=== PATIENT | male | born 1945 | race Caucasian/White ===

== ENCOUNTER → 2016-09-18 | Outpatient (CLI) | payer MEDICARE, BC ==
--- NOTE | 2016-09-18 07:56 | US ---
EXAMINATION TYPE: US carotid duplex BILAT DATE OF EXAM: 09/18/2016 COMPARISON: US CLINICAL HISTORY: R09.89 Carotid Bruit. Smoker, vision changes EXAM MEASUREMENTS: RIGHT: Peak Systolic Velocity (PSV) cm/sec ----- Right CCA: 64.3 ----- Right ICA: 53.8 ----- Right ECA: 85.5 ICA/CCA ratio: 0.8 RIGHT: End Diastole cm/sec ----- Right CCA: 11.0 ----- Right ICA: 24.1 ----- Right ECA: 12.8 LEFT: Peak Systolic Velocity (PSV) cm/sec ----- Left CCA: 72.1 ----- Left ICA: 48.9 ----- Left ECA: 71.2 ICA/CCA ratio: 0.7 LEFT: End Diastole cm/sec ----- Left CCA: 19.7 ----- Left ICA: 23.2 ----- Left ECA: 11.0 VERTEBRALS (direction of flow): Right Vertebral: Antegrade Left Vertebral: Antegrade No elevated velocities IMPRESSION: I DO NOT SEE EVIDENCE OF A HEMODYNAMICALLY SIGNIFICANT STENOSIS IN EITHER CAROTID SYSTEM. Criteria for Assigning % of Stenosis / Diameter reduction (Estimation based on the indirect measurements of the internal carotid artery velocities (ICA PSV). 1. Normal (no stenosis)=ICA PSV < 125 cm/s: ratio < 2.0: ICA EDV<40 cm/s. 2. Less than 50% stenosis=ICA PSV < 125 cm/s: ratio < 2.0: ICA EDV<40 cm/s. 3. 50 to 69% stenosis=ICA PSV of 125 to 230 cm/s: ration 2.0 ? 4.0: ICA EDV 40-100 cm/s. 4. Greater than 70% stenosis to near occlusion= ICA PSV > 230 cm/s: ratio > 4.0: ICA EDV > 100 cm/s. 5. Near occlusion= ICA PSV velocities may be low or undetectable: variable ratio and ICA EDV. 6. Total occlusion=unable to detect flow.
== END | disposition home or self-care (01) ==
LOC: RADUSWWP 07:24
PROVIDERS: ATTEND Family Medicine
DX: R09.89 Other specified symptoms and signs involving the circulatory and respiratory systems (principal)
CPT/HCPCS: 93880

== ENCOUNTER 2016-10-24 11:28 | Day surgery (SDC) | payer MEDICARE, BC ==
[2016-10-19 10:30] VITALS: BMI 27.0
[~2016-10-24 11:28] MED LIST: DEXAMETHASONE SOD PHOSPHATE 10 MG/ML 1 ML VIAL IV ONE; HEPARIN SODIUM,PORCINE 5,000 UNIT/ML 1 ML VIAL SQ ONE; HYDROmorphone 1 MG/ML 1 ML SYRINGE IVP PRN; LACTATED RINGERS 1,000 ML IV SCH; LIDOCAINE 1% 20 ML VIAL (10MG/ML) FOR IV START INTRADERMA PRN; MIDAZOLAM 2 MG/2 ML VIAL IV PRN; ONDANSETRON 4 MG/2 ML VIAL IVP ONE; Pre Op ABX Message 1 EACH MISC MISCELLANE ONE; SCOPOLAMINE 1.5MG/72HR PATCH TRANSDERM ONE
[2016-10-24 12:33] VITALS: TEMP 98.1
[2016-10-24 13:04] LABS: Glucose,Whole Blood 123 mg/dL (75-99)
[2016-10-24] MEDS ORDERED: LIDOCAINE 1% INJ 10MG/ML (20 ML MDV) ONE (13:05)
[2016-10-24] MEDS ORDERED: MIDAZOLAM 2 MG/2 ML VIAL ONE (13:05)
[2016-10-24] MEDS ORDERED: fentaNYL (PF) 50 MCG/ML 2 ML AMP ONE (13:05)
[2016-10-24] MEDS ORDERED: PROPOFOL 10 MG/ML 20 ML VIAL IV ONE (13:05)
[2016-10-24] MEDS ORDERED: SODIUM CHLORIDE 0.9% 50 ML with ceFAZolin 2,000 MG IV ONE ×2 (13:10)
[2016-10-24] MEDS ORDERED: BUPIVACAIN-EPI 0.25%-1:200,000 30 ML VIAL SQ ONE ×2 (13:18)
[2016-10-24] MEDS ORDERED: LIDOCAINE 2%-EPI 1:100,000 20 ML VIAL SQ ONE (14:19)
--- NOTE | 2016-10-24 14:50 | P.OP ---
Date of Procedure: 10/24/16 Preoperative Diagnosis: Multiple cutaneous sebaceous cysts Postoperative Diagnosis: Same Procedure(s) Performed: Excision of multiple sebaceous cyst 7 Implants: Anesthesia: VANDANA WELCH, local Surgeon: Tameka London Condition: stable Disposition: PACU Indications for Procedure: Operative Findings: Multiple cutaneous cysts Description of Procedure: Patient was brought to the operating room and placed in prone position. Chlorhexidine was used to prep shoulder and buttock area. Informed consent obtained and all sites marked preoperatively. Patient received preoperative antibiotics. Multiple skin and subcutaneous cyst in right lower neck ,left upper back, right lower back x2and 3 in left gluteal area. An elliptical skin incision was made to incorporate the draining punctum. Subcutaneous dissection was carried out to remove the entire cyst wall and containing granulation tissue. The cavity was irrigated with half-strength hydrogen peroxide and closed in single layer using interrupted sutures of 3-0 nylon. Hemostasis checked. Clean dressing applied. The sponge, instrument and needle count were correct 2 Please see the following location for post excisional measurements: 2x1x0.5 cm(neck) 4.5 x 3.5 x 1 cm ( gluteal area incorporating 3 areas ) , 2.4 x 0.6 x 2.3 cm(right lower back incorporating 2 areas ) and 1.3 x 0.9 x0.2 cm.( left upper back) Final Pathologic Diagnosis SKIN AND SUBCUTANEOUS TISSUE, BACK, EXCISION: EPIDERMAL INCLUSION CYST AND SUBCUTANEOUS INFLAMED GRANULATION TISSUE LINED CAVITIES WITH ADJACENT FIBROSIS, FAT NECROSIS AND FOREIGN BODY GIANT CELL REACTION SUGGESTIVE OF RUPTURED CYSTS.
[2016-10-24 15:20] VITALS: RESP 18
[2016-10-24 15:37] VITALS: PULSE 72
[2016-10-24 16:06] VITALS: BP 103/65
== END 2016-10-24 16:07 | disposition home or self-care (01) ==
LOC: OR 11:28
PROVIDERS: ATTEND Surgery
DX: L72.0 Epidermal cyst (principal); M79.89 Other specified soft tissue disorders; L92.8 Other granulomatous disorders of the skin and subcutaneous tissue; F17.200 Nicotine dependence, unspecified, uncomplicated; E11.9 Type 2 diabetes mellitus without complications; I10 Essential (primary) hypertension; E78.5 Hyperlipidemia, unspecified; Z79.84 Long term (current) use of oral hypoglycemic drugs; Z79.899 Other long term (current) drug therapy; Z88.8 Allergy status to other drugs, medicaments and biological substances
CPT/HCPCS: 88304; 11403 ×2; 11402; J2250; J1644; J1100; J2405; J2001; J3010; J0690; J2704

== ENCOUNTER 2020-12-17 22:48 | Inpatient (IN) | payer MEDICARE, BC ==
--- NOTE | 2020-12-17 23:14 | ED ---
Chest Pain HPI - General Chief Complaint: Chest Pain Stated Complaint: Chest Pain Time Seen by Provider: 12/17/20 23:02 Source: patient Mode of arrival: ambulatory - History of Present Illness Complaint: chest pain Onset/Timin -: hour(s) Onset: after eating Pain Location: substernal, epigastric Pain Radiation: none Severity: moderate Quality: other ("Like heartburn") Consistency: constant, now resolved Improves With: other Worsens With: nothing Treatments Prior to Arrival: other ([place]) - Related Data Home Medications Medication Instructions Recorded Confirmed Atorvastatin Calcium [Lipitor] 20 mg PO HS 10/19/16 10/24/16 Empagliflozin [Jardiance] 25 mg PO DAILY 10/19/16 10/24/16 Latanoprost Ophth [Xalatan 0.005%] 1 drops BOTH EYES HS 10/19/16 10/24/16 Saxagliptin HCl [Onglyza] 5 mg PO DAILY 10/19/16 10/24/16 hydroCHLOROthiazide 25 mg PO DAILY 10/19/16 10/24/16 lisinopriL [Zestril] 20 mg PO DAILY 10/19/16 10/24/16 metFORMIN HCL [Glucophage] 1,000 mg PO BID 10/19/16 10/24/16 Previous Rx's Medication Instructions Recorded Docusate [Colace] 100 mg PO BID #30 capsule 10/24/16 Hydrocodone/Acetaminophen [[place] 1 each PO Q6HR PRN #20 tab 10/24/16 5-325] Sulfamethox-Tmp 800-160Mg [Bactrim 1 tab PO Q12HR #20 tab 10/24/16 DS 800-160 mg] Allergies Allergy/AdvReac Type Severity Reaction Status Date / Time oxycodone [From OxyContin] AdvReac Nausea & Verified 12/17/20 22:54 Vomiting Review of Systems ROS Statement: Those systems with pertinent positive or pertinent negative responses have been documented in the HPI. ROS Other: All systems not noted in ROS Statement are negative. Constitutional: Denies: fever, chills Respiratory: Denies: cough, dyspnea Cardiovascular: Reports: as per HPI, chest pain. Denies: palpitations, orthopnea, edema, syncope Gastrointestinal: Denies: abdominal pain, nausea, vomiting, diarrhea, constipation Genitourinary: Denies: dysuria, hematuria Musculoskeletal: Denies: back pain Skin: Denies: rash Neurological: Denies: headache, weakness EKG Findings - EKG Results: EKG: interpreted by JANE, sinus rhythm (Rate 79 bpm) - Blocks, [place], Hypertrophy, ST Abn: AV and intraventricular conduction: left bundle branch block (fixed/intermittent, complete/incomplete) QRS axis and voltage: left axis deviation (-30 to -90) Repolarization changes or abnormalities: nonspecific abnormality, ST segment, and/or T wave Past Medical History Past Medical History: Cancer, Diabetes Mellitus Additional Past Medical History / Comment(s): 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 History of Any Multi-Drug Resistant Organisms: None Reported Past Surgical History: Tonsillectomy Additional Past Surgical History / Comment(s): Multiple cyst removed in the past. States large cyst removed from armpit. Colonoscopy in the past. Past Anesthesia/Blood Transfusion Reactions: No Reported Reaction Past Psychological History: No Psychological Hx Reported Smoking Status: Current every day smoker Past Alcohol Use History: None Reported Past Drug Use History: None Reported - Past Family History Father Family Medical History: Cancer Additional Family Medical History / Comment(s): Stomach Mother Family Medical History: No Reported History General Exam General appearance: alert, in no apparent distress Head exam: Present: atraumatic, normocephalic Eye exam: Present: normal appearance. Absent: scleral icterus, conjunctival injection Neck exam: Present: normal inspection Respiratory exam: Present: normal lung sounds bilaterally. Absent: respiratory distress, wheezes, rales, rhonchi, stridor, chest wall tenderness Cardiovascular Exam: Present: regular rate, normal rhythm, normal heart sounds. Absent: systolic murmur, diastolic murmur, rubs, gallop GI/Abdominal exam: Present: soft. Absent: distended, tenderness, guarding, rebound, rigid, mass Extremities exam: Present: normal inspection, normal capillary refill. Absent: pedal edema, calf tenderness Back exam: Present: normal inspection. Absent: CVA tenderness (R), CVA tenderness (L) Neurological exam: Present: alert Skin exam: Present: warm, dry, intact, normal color. Absent: rash Course Vital Signs 12/17/20 22:51 Temperature 98 F Pulse Rate 87 Respiratory 19 Rate Blood Pressure 135/81 O2 Sat by Pulse 95 Oximetry Disposition Referrals: Ebenezer Guerrero MD [Primary Care Provider] - 1-2 days
[2020-12-17 23:35] LABS: Basophils # (A) 0.1 k/uL (0-0.2); Basophils % (A) 1 %; Eosinophils # (A) 0.4 k/uL (0-0.7); Eosinophils % (A) 3 %; HCT 46.4 % (39.0-53.0); HGB 15.6 gm/dL (13.0-17.5); Lymphocytes % (A) 16 %; MCH 33.1 pg (25.0-35.0); MCHC 33.6 g/dL (31.0-37.0); MCV 98.3 fL (80.0-100.0); Monocytes # (A) 0.8 k/uL (0-1.0); Monocytes % (A) 6 %; Neutrophils # (A) 9.3 k/uL (1.3-7.7); Neutrophils % (A) 72 %; Platelet Count 167 k/uL (150-450); RBC 4.72 m/uL (4.30-5.90); RDW 13.6 % (11.5-15.5); WBC 12.8 k/uL (3.8-10.6)
[2020-12-17 23:43] LABS: Albumin 4.2 g/dL (3.5-5.0); Calcium 9.8 mg/dL (8.4-10.2); Magnesium 1.8 mg/dL (1.6-2.3); Potassium 3.9 mmol/L (3.5-5.1); Total Bilirubin 0.6 mg/dL (0.2-1.3); Total Protein 7.3 g/dL (6.3-8.2)
[2020-12-17 23:45] LABS: INR 0.9 (<1.2); Partial Thromboplastin Time 23.2 sec (22.0-30.0); Prothrombin Time 10.1 sec (9.0-12.0)
--- NOTE | 2020-12-17 23:56 | XR ---
EXAMINATION TYPE: XR chest 2V DATE OF EXAM: 12/17/2020 COMPARISON: NONE HISTORY: Chest pain TECHNIQUE: 3 views FINDINGS: There is some mild atelectasis at the lung bases. Heart size is normal. There is no heart f ailure. Thoracic aorta is atheromatous. There are chest leads. There is no pleural effusion. Bony tho rax is intact. IMPRESSION: There is some mild atelectasis at the lung bases.
[2020-12-18] MEDS ORDERED: INSULIN REGULAR 100 UNIT/ML VIAL (IV) IV STA (00:10)
[2020-12-18] MEDS ORDERED: HEPARIN SODIUM 1,000 UN/ML (10ML VL) IV ONE (00:11)
[2020-12-18] MEDS ORDERED: HEPARIN SODIUM 1,000 UN/ML (10ML VL) IV PRN (00:11)
[2020-12-18] MEDS ORDERED: HEPARIN SOD,PORK IN 0.45% NACL 25,000 UNIT in 0.45% NACL 1 250ML.BAG IV SCH (00:15)
[2020-12-18] MEDS ORDERED: ACETAMINOPHEN TAB 325 MG TAB PO PRN (00:20)
[2020-12-18] MEDS ORDERED: MORPHINE SULFATE 4 MG/ML SYRINGE IV PRN (00:20)
[2020-12-18] MEDS ORDERED: NITROGLYCERIN SL TABS 0.4 MG TAB SUBLINGUAL PRN ×2 (00:20→12:19)
[2020-12-18] MEDS ORDERED: HYDROcodone/APAP 5-325MG 1 EACH TAB PO PRN (00:23)
[2020-12-18 02:28] LABS: Glucose,Whole Blood 193 mg/dL (75-99)
--- NOTE | 2020-12-18 04:14 | P.HPIM ---
History of Present Illness H&P Date: 12/18/20 Chief Complaint: Epigastric pain 75-year-old male with diabetes mellitus on oral hypoglycemic agents A1c 6.9%, hypertension, hyperlipidemia Patient comes in due to 3 hour long epigastric/substernal pain rated as 5-7 out of 10 in severity not associated with any dizziness lightheadedness diaphoresis or palpitations no heavy breathing. However pain persisted despite patient thinking that some indigestion for which he took [place] help him feel better initially but then pain persisted for which she was worried that he's having some food poisoning so he decided to come to the hospital. Earlier that day he had early dinner around 3 PM at a restaurant where he had fish his ate at the same restaurant of her meal and she is feeling fine. He never had any cardiac workup in the past he never had any complaints suggestive of anginal chest pain or exertional dyspnea patient is occasionally active where he does some yard work with no limitations with any chest pain. He otherwise denies any fevers chills coughing shortness of breath denies any nausea vomiting or diarrhea Along with the above symptoms he was also complaining of recurrent belching but again denies any symptoms suggestive of GERD In the ED workup showed initially normal troponins slightly elevated white count blood glucose 262. EKG no acute ST changes suggestive of incomplete left bundle branch block Patient admits to history of smoking, he has well-controlled diabetes mellitus hypertension hyperlipidemia along with his advanced age and concerns were for underlying cardiac cause for his presentation patient was kept in the hospital for chest pain rule out Review of Systems Pertinent positives as noted in HPI. 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 History of Any Multi-Drug Resistant Organisms: None Reported Past Surgical History: Cholecystectomy, Tonsillectomy Additional Past Surgical History / Comment(s): 35 cysts removed in the past. States large cyst removed from armpit. Colonoscopy in the past. Past Anesthesia/Blood Transfusion Reactions: No Reported Reaction Past Psychological History: No Psychological Hx Reported Smoking Status: Current every day smoker Past Alcohol Use History: None Reported Additional Past Alcohol Use History / Comment(s): Smokes 1 PPD since . Past Drug Use History: None Reported - Past Family History Father Family Medical History: Cancer Additional Family Medical History / Comment(s): Stomach Mother Family Medical History: No Reported History Medications and Allergies Home Medications Medication Instructions Recorded Confirmed Type Atorvastatin Calcium [Lipitor] 20 mg PO HS 10/19/16 12/18/20 History Empagliflozin [Jardiance] 25 mg PO DAILY 10/19/16 12/18/20 History Latanoprost Ophth [Xalatan 0.005%] 1 drops BOTH EYES HS 10/19/16 12/18/20 History hydroCHLOROthiazide 25 mg PO DAILY 10/19/16 12/18/20 History metFORMIN HCL [Glucophage] 1,000 mg PO BID 10/19/16 12/18/20 History Alogliptin Benzoate [Alogliptin] 25 mg PO DAILY 12/18/20 12/18/20 History Brimonidine/Dorzolamide/Pf 1 drop BOTH EYES BID 12/18/20 12/18/20 History [Brimonidine 0.15%-Dorzolam 2%] Losartan Potassium 100 mg PO DAILY 12/18/20 12/18/20 History Allergies Allergy/AdvReac Type Severity Reaction Status Date / Time oxycodone [From OxyContin] AdvReac Nausea & Verified 12/17/20 22:54 Vomiting Physical Exam Vitals: Vital Signs Temp Pulse Pulse Resp BP BP Pulse Ox 12/18/20 01:16 97.6 F 78 16 148/71 91 L 12/18/20 00:25 80 18 131/81 94 L 12/17/20 22:51 98 F 87 19 135/81 95 Intake and Output 12/17/20 12/17/20 12/18/20 14:59 22:59 06:59 Other: Voiding Method Toilet Weight 86.183 kg 86.183 kg Constitutional: No acute distress, conversant, pleasant Eyes: Anicteric sclerae, moist conjunctiva, Pupils equal round reactive to light ENMT: NC/AT Oropharynx clear, no erythema, or exudates Neck: Supple, FROM, no masses, or JVD No carotid bruits No thyromegaly Lungs: Clear to auscultation Clear to percussion Normal respiratory effort, no accessory muscle use Cardiovascular: Heart regular in rate and rhythm, No murmurs, gallops, or rubs No peripheral edema Abdominal: Soft Nontender, no guarding, rebound or rigidity Abdomen moving with respiration Normoactive bowel sounds No hepatomegaly, No splenomegaly No palpable mass No abdominal wall hernia noted Skin: Normal temperature, tone, texture, turgor No induration No subcutaneous nodules No rash, lesions No ulcers Extremities: No digital cyanosis No clubbing Pedal pulses intact and symmetrical Radial pulses intact and symmetrical No calf tenderness Psychiatric: Alert and oriented to person, place and time Appropriate affect fair judgement Neuro Muscles Strength 5/5 in all 4 extremities Sensation to light touch grossly present throughout Cranial nerves II-XII grossly intact No focal sensory deficits Lymphatics: no palpable cervical or supraclavicular , or inguinal lymph nodes Results CBC & Chem 7: 12/17/20 23:24 12/17/20 23:24 Labs: Abnormal Lab Results - Last 24 Hours (Table) 12/17/20 12/17/20 12/18/20 Range/Units 23:24 23:24 02:23 WBC 12.8 H (3.8-10.6) k/uL Neutrophils # 9.3 H (1.3-7.7) k/uL Sodium 136 L (137-145) mmol/L BUN 29 H (9-20) mg/dL Glucose 262 H (74-99) mg/dL POC Glucose (mg/dL) 193 H (75-99) mg/dL Troponin I (0.000-0.034) ng/mL 12/18/20 Range/Units 03:05 WBC (3.8-10.6) k/uL Neutrophils # (1.3-7.7) k/uL Sodium (137-145) mmol/L BUN (9-20) mg/dL Glucose (74-99) mg/dL POC Glucose (mg/dL) (75-99) mg/dL Troponin I 0.319 H* (0.000-0.034) ng/mL Thrombosis Risk Factor Assmnt - Choose All That Apply Any of the Below Risk Factors Present?: Yes Each Factor Represents 1 point: Obesity (BMI >25) Other Risk Factors: Yes Each Risk Factor Represents 2 Points: Malignancy Each Risk Factor Represents 3 Points: Age 75 years or older Other congenital or acquired thrombophilia - If yes, enter type in comment: No Thrombosis Risk Factor Assessment Total Risk Factor Score: 6 Thrombosis Risk Factor Assessment Level: High Risk Assessment and Plan Assessment: Atypical chest pain rule out acute coronary syndrome Trend troponins Cardiac monitoring Cardiology consult Aspirin, statin Patient started on PPI Nitro when necessary for chest pain Monitor vital signs Heparin drip for acute coronary syndrome protocol Chronic conditions Diabetes mellitus on oral hypoglycemic agents will controlled with A1c month ago 6.9% Hold oral hypoglycemic agents Start patient on insulin sliding scale Hypertension well-controlled resume losartan home medication Hyperlipidemia continue with statin Follow-up labs Follow-up cardiology recommendations Patient is full code DVT prophylaxis on heparin drip for ACS Anticipated discharge to home Anticipated length of stay less than 2 midnights
[2020-12-18] MEDS ORDERED: MAG HYDROX/AL HYDROX/SIMETH 30 ML, HYOSCYAMINE ELIXIR 10 ML, LIDOCAINE VISCOUS 2% 10 ML PO ONE ×3 (05:00)
[2020-12-18] MEDS: INSULIN ASPART (NovoLOG) 100 UNIT/ML VIAL SQ SCH ×4 (07:24→20:49)
[2020-12-18] MEDS: DOCUSATE 100 MG CAP PO SCH ×2 (07:24→20:06)
[2020-12-18 07:47] LABS: Glucose,Whole Blood 171 mg/dL (75-99)
[2020-12-18] MEDS: LOSARTAN 50 MG TAB PO SCH (08:19)
[2020-12-18] MEDS ORDERED: NON FORMULARY DRUG (Empagliflozin [Jardiance] 25 MG Tablet) PO SCH (09:00)
[2020-12-18] MEDS ORDERED: LINAGLIPTIN 5 MG TABLET PO SCH (09:00)
[2020-12-18] MEDS ORDERED: metFORMIN 500 MG TAB PO SCH (09:00)
[2020-12-18] MEDS ORDERED: hydroCHLOROthiazide 25 MG TAB PO SCH (09:00)
[2020-12-18] MEDS ORDERED: lisinopriL 20 MG TAB PO SCH (09:00)
--- NOTE | 2020-12-18 09:09 | P.CRDCN ---
History of Present Illness History of present illness: HISTORY OF PRESENTING ILLNESS This is a pleasant 75-year-old with past medical history significant for Hypertension, hyperlipidemia, diabetes mellitus type 2, tobacco abuse who presents with indigestion, epigastric pain. Patient states normally does not get indigestion however yesterday he started feeling some before going to bed. He admitted to some nausea as well as some belching. He never had this before and therefore presented to emergency department. He denies any associated sh ortness breath, diaphoresis, chest pain. He took some antacids without any improvement. He does smoke approximately a pack a day, no alcohol or illicit drugs. No family history of coronary artery disease. I was notified overnight with second troponin increasing from 0.03 up to 0.3 however he was given GI cocktail with apparent improvement in symptoms. Patient currently denies any epigastric pain. Third troponin increased to 19 this morning. EKG shows normal sinus rhythm, left axis deviation, incomplete left bundle with Q waves V1, minimal ST depression in lead 2 and T wave flattening in 3. REVIEW OF SYSTEMS At the time of my exam: CONSTITUTIONAL: Denies fever or chills. CARDIOVASCULAR: Denies chest pain, shortness of breath, orthopnea, PND or palpitations. +epigastric pain with belching RESPIRATORY: Denies cough. GASTROINTESTINAL: Denies abdominal pain, diarrhea, constipation, nausea or vomiting. MUSCULOSKELETAL: Denies myalgias. NEUROLOGIC: Denies numbness, tingling or weakness. ENDOCRINE: Denies fatigue, weight change, polydipsia or polyurina. GENITOURINARY: Denies burning, hematuria or urgency with micturation. HEMATOLOGIC: Denies history of anemia or bleeding. PHYSICAL EXAMINATION Vital signs reviewed. CONSTITUTIONAL: No apparent distress. HEENT: Head is normocephalic. Pupils are equal, round. Sclerae anicteric. Mucous membranes of the mouth are moist. No JVD. No carotid bruit. CHEST EXAMINATION: Lungs are clear to auscultation. No chest wall tenderness is noted on palpation or with deep breathing. HEART EXAMINATION: Regular rate and rhythm. S1, S2 heard. No murmurs, gallops or rub. ABDOMEN: Soft, nontender. Positive bowel sounds. EXTREMITIES: 2+ peripheral pulses, no lower extremity edema and no calf tenderness. NEUROLOGIC EXAMINATION: Patient is awake, alert and oriented x3. ASSESSMENT 1. Non-STEMI 2. Diabetes mellitus type 2 3. Hypertension 4. Hyperlipidemia 5. Tobacco abuse PLAN Patient with atypical symptoms initially with epigastric pain and belching which did improve with GI cocktail. Currently is chest pain-free however third-degree troponin significantly elevated. Check 2-D echo. Discussed her catheterization patient is agreeable. Aspirin, heparin drip, beta nila, increase Lipitor to 40 mg daily. Further recommendations follow. Tobacco cessation. 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 History of Any Multi-Drug Resistant Organisms: None Reported Past Surgical History: Cholecystectomy, Tonsillectomy Additional Past Surgical History / Comment(s): 35 cysts removed in the past. States large cyst removed from armpit. Colonoscopy in the past. Past Anesthesia/Blood Transfusion Reactions: No Reported Reaction Past Psychological History: No Psychological Hx Reported Smoking Status: Current every day smoker Past Alcohol Use History: None Reported Additional Past Alcohol Use History / Comment(s): Smokes 1 PPD since . Past Drug Use History: None Reported - Past Family History Father Family Medical History: Cancer Additional Family Medical History / Comment(s): Stomach Mother Family Medical History: No Reported History Medications and Allergies Home Medications Medication Instructions Recorded Confirmed Type Atorvastatin Calcium [Lipitor] 20 mg PO HS 10/19/16 12/18/20 History Empagliflozin [Jardiance] 25 mg PO DAILY 10/19/16 12/18/20 History Latanoprost Ophth [Xalatan 0.005%] 1 drops BOTH EYES HS 10/19/16 12/18/20 His tory hydroCHLOROthiazide 25 mg PO DAILY 10/19/16 12/18/20 History metFORMIN HCL [Glucophage] 1,000 mg PO BID 10/19/16 12/18/20 History Alogliptin Benzoate [Alogliptin] 25 mg PO DAILY 12/18/20 12/18/20 History Brimonidine/Dorzolamide/Pf 1 drop BOTH EYES BID 12/18/20 12/18/20 History [Brimonidine 0.15%-Dorzolam 2%] Losartan Potassium 100 mg PO DAILY 12/18/20 12/18/20 History Allergies Allergy/AdvReac Type Severity Reaction Status Date / Time oxycodone [From OxyContin] AdvReac Nausea & Verified 12/17/20 22:54 Vomiting Physical Exam Vitals: Vital Signs Temp Pulse Pulse Resp BP BP Pulse Ox 12/18/20 07:10 98.5 F 81 16 109/67 93 L 12/18/20 05:06 87 18 102/53 93 L 12/18/20 01:16 97.6 F 78 16 148/71 91 L 12/18/20 00:25 80 18 131/81 94 L 12/17/20 22:51 98 F 87 19 135/81 95 Intake and Output 12/17/20 12/18/20 12/18/20 22:59 06:59 14:59 Intake Total 71.645 Balance 71.645 Intake: Intake, IV Titration 71.645 Amount Heparin Sod,Pork in 0.45% 71.645 NaCl 25,000 unit In 0.45 % NaCl 1 250ml.bag @ 11.6 UNITS/KG/HR 9.997 mls/hr IV .Q24H [facility] Rx#: [id number] Other: Voiding Method Toilet Toilet # Voids 2 Weight 86.183 kg 86.183 kg Results 12/17/20 23:24 12/17/20 23:24 Cardiac Enzymes 12/17/20 12/17/20 12/18/20 Range/Units 23:24 23:24 03:05 AST 28 (17-59) U/L Troponin I 0.029 0.319 H* (0.000-0.034) ng/mL 12/18/20 Range/Units 07:03 AST (17-59) U/L Troponin I 19.000 H* (0.000-0.034) ng/mL Coagulation 12/17/20 12/18/20 Range/Units 23:24 07:03 PT 10.1 (9.0-12.0) sec APTT 23.2 30.5 H (22.0-30.0) sec CBC 12/17/20 Range/Units 23:24 WBC 12.8 H (3.8-10.6) k/uL RBC 4.72 (4.30-5.90) m/uL Hgb 15.6 (13.0-17.5) gm/dL Hct 46.4 (39.0-53.0) % Plt Count 167 (150-450) k/uL Comprehensive Metabolic Panel 12/17/20 Range/Units 23:24 Sodium 136 L (137-145) mmol/L Potassium 3.9 (3.5-5.1) mmol/L Chloride 104 (98-107) mmol/L Carbon Dioxide 22 (22-30) mmol/L BUN 29 H (9-20) mg/dL Creatinine 1.03 (0.66-1.25) mg/dL Glucose 262 H (74-99) mg/dL Calcium 9.8 (8.4-10.2) mg/dL AST 28 (17-59) U/L ALT 27 (4-49) U/L Alkaline Phosphatase 63 (38-126) U/L Total Protein 7.3 (6.3-8.2) g/dL Albumin 4.2 (3.5-5.0) g/dL Current Medications Generic Name Dose Route Start Last Admin Trade Name Freq PRN Reason Stop Dose Admin Acetaminophen 650 mg 12/18/20 00:20 Acetaminophen Tab 325 Mg Tab PO Q4HR PRN Pain Hydrocodone Bitart/Acetaminophen 1 each 12/18/20 00:23 Hydrocodone/Apap 5-325mg 1 Each Tab PO Q6HR PRN Pain Aspirin 325 mg 12/19/20 09:00 Aspirin 325 Mg Tab PO DAILY OUMAR Atorvastatin Calcium 20 mg 12/18/20 21:00 Atorvastatin 20 Mg Tab PO HS OUMAR Brimonidine Tartrate 1 drops 12/18/20 09:00 Brimonidine Tartrate 0.2% Drops 5 Ml Btl BOTH EYES BID OUMAR Docusate Sodium 100 mg 12/18/20 09:00 12/18/20 07:24 Docusate 100 Mg Cap PO Not Given BID OUMAR Dorzolamide HCl 1 drops 12/18/20 09:00 Dorzolamide Hcl 2% Drops 10 Ml Btl BOTH EYES BID OUMAR Heparin Sodium (Porcine) 0 unit 12/18/20 00:11 Heparin Sodium 1,000 Un/Ml (10ml Vl) IV PER PROTOCOL PRN Low PTT Protocol Heparin Sodium/Sodium Chloride 250 mls @ 9.997 mls/hr 12/18/20 00:15 12/18/20 07:54 25,000 unit/ Sodium Chloride IV 14.6 units/kg/hr .Q24H [facility] 12.583 mls/hr Titration Protocol 11.6 UNITS/KG/HR Insulin Aspart 0 unit 12/18/20 07:30 12/18/20 07:24 Insulin Aspart (Novolog) 100 Unit/Ml Vial SQ Not Given ACHS [facility] Protocol Latanoprost 1 drops 12/18/20 21:00 Latanoprost 0.005% Ophth Drops 2.5 Ml Btl BOTH EYES HS [facility] Losartan Potassium 100 mg 12/18/20 09:00 12/18/20 08:19 Losartan 50 Mg Tab PO Not Given DAILY [facility] Metoprolol Tartrate 12.5 mg 12/18/20 09:00 Metoprolol Tartrate 12.5 Mg Tab PO BID [facility] Morphine Sulfate 4 mg 12/18/20 00:20 Morphine Sulfate 4 Mg/Ml Syringe IV Q5M PRN Chest Pain Nitroglycerin 0.4 mg 12/18/20 00:20 Nitroglycerin Sl Tabs 0.4 Mg Tab SUBLINGUAL Q5M PRN Chest Pain Intake and Output 12/17/20 12/18/20 12/18/20 22:59 06:59 14:59 Intake Total 71.645 Balance 71.645 Intake: Intake, IV Titration 71.645 Amount Heparin Sod,Pork in 0.45% 71.645 NaCl 25,000 unit In 0.45 % NaCl 1 250ml.bag @ 11.6 UNITS/KG/HR 9.997 mls/hr IV .Q24H [facility] Rx#: [id number] Other: Voiding Method Toilet Toilet # Voids 2 Weight 86.183 kg 86.183 kg 12/17/20 23:24 12/17/20 23:24
[2020-12-18] MEDS: BRIMONIDINE TARTRATE 0.2% DROPS 5 ML BTL BOTH EYES SCH ×2 (09:26→20:07)
[2020-12-18] MEDS: METOPROLOL TARTRATE 12.5 MG TAB PO SCH ×2 (09:26→20:06)
[2020-12-18] MEDS: DORZOLAMIDE HCL 2% DROPS 10 ML BTL BOTH EYES SCH ×2 (09:26→20:07)
--- NOTE | 2020-12-18 09:35 | P.PN ---
<Mookie Ferreira - Last Filed: 12/18/20 09:24> Subjective Progress Note Date: 12/18/20 Hospital course: Patient is a 5-year-old male with past medical history of type II act-suykxuv-e ependent diabetes mellitus,Nicotine dependence smoking one pack of cigarettes daily, hypertension, and hyperlipidemia. He presented to the hospital on 12/17/20 with a chief complaint of chest pain. An EKG was completed showing normal sinus rhythm at 79 bpm with an incomplete left bundle branch block, no previous EKGs available for comparison. Chest x-ray revealed mild atelectasis at bilateral lung bases. CBC revealing mild leukocytosis with a WBC count of 12.8 otherwise unremarkable. Coags were normal. BMP revealing mild prerenal azotemia with BUN of 29 and hyperglycemia with glucose of 262. Initial troponin 0.029. Patient was given aspirin, atorvastatin, and started on heparin infusion per ACS protocol. The patient was then admitted under our services with consultation to cardiology. Throughout the night while trending troponins patient's troponin was noted to significantly elevate from 0.029 to 0.319, and 19.00. Nurse Assistant at bedside with plans to take patient to laboratory coordinator later this morning. Physical exam: Patient seen and fully evaluated at bedside this morning. Patient currently resting comfortably on heparin infusion and denying having any chest pain, palpitations, shortness of breath, Nausea, diaphoresis, back pain, or neck pain. Patient Was noted to have increasing troponins throughout the night elevating from 0.029 to 0.319, and 19.00. Cardiology was notified with plans to take patient for cardiac cath this morning. Admission orders placed for inpatient from observation status. Vital signs reviewed and stable. General: Nontoxic, no distress and appears stated age. Derm: Skin warm and dry, normal coloration for ethnicity. Head: Atraumatic, normocephalic and symmetric. Eyes: EOMs intact, no lid lag, and anicteric sclera Mouth: no lip lesions, mucus membranes moist Cardiovascular: regular rate and rhythm with normal S1S2, no murmur, positive posterior tibial pulses bilaterally, and cap refill < 2 seconds. Lungs: Respirations even, regular, and unlabored on room air. Lungs CTA bilaterally, no rhonchi, no rales, no wheezing, and no accessory muscle usage. Abdominal: soft, nontender to palpation, no guarding, no appreciable organomegaly Ext: ROM intact. No gross muscle atrophy, no edema, no contractures Neuro: Speech clear, face symmetrical and CN II-XII grossly intact with no noted focal neuro deficits Psych: Alert and oriented to person, place, time, and situation. Appropriate and pleasant affect. Assessment and Plan of Care: NSTEMI -Patient's troponin was noted to significantly elevate from 0.029 to 0.319, and 19.00. -EKG was completed showing normal sinus rhythm at 79 bpm with an incomplete left bundle branch block, no previous EKGs available for comparison. -Cardiology following, plans to take patient for cardiac cath later this mo rning. -Continue heparin per ACS protocol. -Continue daily aspirin, atorvastatin, metoprolol. -Continuous telemetry monitoring -Nitro when necessary for chest pain/discomfort. Type II [id number] diabetes mellitus -For Glucophage and place patient on glycemic protocol with NovoLog sliding scale. Nicotine dependence -Continue to educate and encourage patient on the importance and benefits of smoking cessation and risks associated with continued use up to and including . -Nicotine patch Hypertension -Monitor vitals and continue daily medication regimen. Hyperlipidemia -Continue daily medication regimen. CODE STATUS: Full code DVT prophylaxis: Heparin Discussed with: Patient and RN Anticipated discharge date: Clinical course to determine Anticipated discharge place: Home A total of 45 minutes was spent on the care of this complex patient more than 50% of the time was spent in counseling and care coordination. Objective - Vital Signs Vital signs: Vital Signs Temp 98.5 F 12/18/20 07:10 Pulse 81 12/18/20 07:10 Resp 16 12/18/20 07:10 BP 109/67 12/18/20 07:10 Pulse Ox 93 L 12/18/20 07:10 Intake & Output 12/17/20 12/18/20 12/18/20 18:59 06:59 18:59 Intake Total 71.645 Balance 71.645 Weight 86.183 kg Intake: Intake, IV Titration 71.645 Amount Heparin Sod,Pork in 0.45% 71.645 NaCl 25,000 unit In 0.45 % NaCl 1 250ml.bag @ 11.6 UNITS/KG/HR 9.997 mls/hr IV .Q24H [facility] Rx#: [id number] Other: Voiding Method Toilet Toilet # Voids 2 - Labs CBC & Chem 7: 12/17/20 23:24 12/17/20 23:24 Labs: Abnormal Lab Results - Last 24 Hours (Table) 12/17/20 12/17/20 12/18/20 Range/Units 23:24 23:24 02:23 WBC 12.8 H (3.8-10.6) k/uL Neutrophils # 9.3 H (1.3-7.7) k/uL APTT (22.0-30.0) sec Sodium 136 L (137-145) mmol/L BUN 29 H (9-20) mg/dL Glucose 262 H (74-99) mg/dL POC Glucose (mg/dL) 193 H (75-99) mg/dL Troponin I (0.000-0.034) ng/mL 12/18/20 12/18/20 12/18/20 Range/Units 03:05 07:03 07:03 WBC (3.8-10.6) k/uL Neutrophils # (1.3-7.7) k/uL APTT 30.5 H (22.0-30.0) sec Sodium (137-145) mmol/L BUN (9-20) mg/dL Glucose (74-99) mg/dL POC Glucose (mg/dL) (75-99) mg/dL Troponin I 0.319 H* 19.000 H* (0.000-0.034) ng/mL 12/18/20 Range/Units 07:20 WBC (3.8-10.6) k/uL Neutrophils # (1.3-7.7) k/uL APTT (22.0-30.0) sec Sodium (137-145) mmol/L BUN (9-20) mg/dL Glucose (74-99) mg/dL POC Glucose (mg/dL) 171 H (75-99) mg/dL Troponin I (0.000-0.034) ng/mL <Vanessa Damon - Last Filed: 12/18/20 18:26> Objective - Vital Signs Vital signs: Vital Signs Temp 98.5 F 12/18/20 07:10 Pulse 60 12/18/20 16:04 Resp 16 12/18/20 16:04 BP 103/55 12/18/20 16:04 Pulse Ox 97 12/18/20 16:04 Intake & Output 12/17/20 12/18/20 12/18/20 18:59 06:59 18:59 Intake Total 223.915 Balance 223.915 Weight 86.183 kg Intake: IV 152.27 Intake, IV Titration 71.645 Amount Heparin Sod,Pork in 0.45% 71.645 NaCl 25,000 unit In 0.45 % NaCl 1 250ml.bag @ 11.6 UNITS/KG/HR 9.997 mls/hr IV .Q24H [facility] Rx#: [id number] Other: Voiding Method Toilet Toilet # Voids 2 1 # Bowel Movements 0 - Labs CBC & Chem 7: 12/17/20 23:24 12/17/20 23:24 Labs: Abnormal Lab Results - Last 24 Hours (Table) 12/17/20 12/17/20 12/18/20 Range/Units 23:24 23:24 02:23 WBC 12.8 H (3.8-10.6) k/uL Neutrophils # 9.3 H (1.3-7.7) k/uL APTT (22.0-30.0) sec Sodium 136 L (137-145) mmol/L BUN 29 H (9-20) mg/dL Glucose 262 H (74-99) mg/dL POC Glucose (mg/dL) 193 H (75-99) mg/dL Troponin I (0.000-0.034) ng/mL 12/18/20 12/18/20 12/18/20 Range/Units 03:05 07:03 07:03 WBC (3.8-10.6) k/uL Neutrophils # (1.3-7.7) k/uL APTT 30.5 H (22.0-30.0) sec Sodium (137-145) mmol/L BUN (9-20) mg/dL Glucose (74-99) mg/dL POC Glucose (mg/dL) (75-99) mg/dL Troponin I 0.319 H* 19.000 H* (0.000-0.034) ng/mL 12/18/20 12/18/20 12/18/20 Range/Units 07:20 12:30 16:36 WBC (3.8-10.6) k/uL Neutrophils # (1.3-7.7) k/uL APTT (22.0-30.0) sec Sodium (137-145) mmol/L BUN (9-20) mg/dL Glucose (74-99) mg/dL POC Glucose (mg/dL) 171 H 163 H 149 H (75-99) mg/dL Troponin I (0.000-0.034) ng/mL Assessment and Plan Assessment: Mookie Ferreira NP rendered care for this patient independently, reviewed the findings and plan as documented in the note above. I did not physically speak with or examine the patient on this date. DM 2- SSI, hold metformin, await A1C
[2020-12-18] MEDS ORDERED: LIDOCAINE 1% INJ 10MG/ML (20 ML MDV) ONE (10:35)
[2020-12-18] MEDS ORDERED: VERAPAMIL 2.5 MG/ML 2 ML AMP ONE (10:35)
[2020-12-18] MEDS ORDERED: HEPARIN SODIUM 1,000 UN/ML (10ML VL) ONE (10:35)
[2020-12-18] MEDS ORDERED: fentaNYL (PF) 50 MCG/ML 2 ML AMP ONE (10:36)
[2020-12-18] MEDS ORDERED: IV FLUID CONTINUATION 250 ML IV ONE (10:40)
[2020-12-18] MEDS ORDERED: ASPIRIN 325 MG TAB ONE (10:58)
[2020-12-18] MEDS ORDERED: MIDAZOLAM 2 MG/2 ML VIAL IV ONE (11:00)
[2020-12-18] MEDS ORDERED: fentaNYL (PF) 50 MCG/ML 2 ML AMP IV ONE (11:02)
[2020-12-18] MEDS ORDERED: ASPIRIN 325 MG TAB PO ONE (11:03)
[2020-12-18] MEDS ORDERED: LIDOCAINE 1% INJ 10MG/ML (20 ML MDV) SQ ONE ×2 (11:03→11:04)
[2020-12-18] MEDS ORDERED: VERAPAMIL SYRINGE (5 MG/10 ML) INTRAARTER ONE (11:05)
[2020-12-18] MEDS ORDERED: TICAGRELOR 90 MG TAB PO ONE (11:13)
[2020-12-18] MEDS ORDERED: TICAGRELOR 90 MG TAB ONE (11:18)
[2020-12-18] MEDS ORDERED: NITROGLYCERIN-D5W PMX 50 MG in DEXTROSE/WATER 1 250ML.BAG IV ONE (11:32)
[2020-12-18] MEDS ORDERED: IOPAMIDOL-370 125ML BTL INJ ONE ×2 (11:47)
[2020-12-18] MEDS ORDERED: IOPAMIDOL-370 100ML BTL INJ ONE (11:59)
[2020-12-18] MEDS ORDERED: SODIUM CHLORIDE 0.9% 500 ML 500 ML IV ONE (12:02)
[2020-12-18] MEDS ORDERED: ATROPINE SULFATE 0.1 MG/ML 10ML SYRINGE IV PRN (12:19)
[2020-12-18] MEDS ORDERED: MAG HYDROX/AL HYDROX/SIMETH 30 ML CUP PO PRN (12:19)
[2020-12-18] MEDS ORDERED: RX INFO: IV CONTRAST WAS GIVEN 1 EACH MISC MISCELLANE PRN (12:19)
[2020-12-18] MEDS ORDERED: ZOLPIDEM 5 MG TAB PO PRN (12:19)
--- NOTE | 2020-12-18 12:19 | P.PRCINT ---
Percutaneous Coronary Int. - Percutaneous Coronary Intervention Percutaneous Coronary Intervention: PROCEDURES PERFORMED: Left heart catheterization, bilateral coronary angiography, Penumbra aspiration thrombcetomy LAD, PCI mid LAD with a 3.0 x 23mm Xience MARCI, post dilated proximally with 3.5 NC balloon and PCI of mid to distal LAD with a 2.75 x 8mm Xience MARCI INDICATION: NSTEMI HISTORY: Patient is a pleasant 75-year-old male with history of hypertension, hyperlipidemia, diabetes mellitus type 2 who presented with epigastric pain which was associated with some belching. He had increasing troponins however the chest pain had resolved with GI cocktail. He was chest pain-free by the time he presented to [facility]. Therefore heart catheterization was recommended. CONSENT:I have discussed the risks, benefits and alternative therapies for the above-mentioned procedure and for both sedation/analgesia as well as necessary blood product administration, if indicated, as they pertain to this patient. The patient has indicated understanding and acceptance of the risks and procedures discussed. PROCEDURE: After the risks, benefits and alternatives of the above mentioned procedure explained in detail with the patient, informed consent was obtained. Patient was taken to the catheterization lab and prepped and draped in usual fashion. 1% lidocaine was used to anesthetize the right radial artery. A 6- Yemeni sheath was placed in the right radial artery using modified Seldinger technique. Left coronary angiography was performed with a 5-Yemeni JL 4.0 catheter and right coronary angiography was performed with a 5-Yemeni JR5 catheter in various views. A 5-Yemeni FR5 catheter was inserted into the left ventricle and pressure measurements were obtained. The decision was made to intervene on the LAD. A 6-Yemeni CLS 4.5 guide was used to engage the left main. Heparin was given for an ACT greater than 250. A 0.014 BMW wire was advanced into the distal LAD. The apical LAD appeared to be subtotally occluded and unable to easily pass the BMW wire. Aspiration thrombectomy was performed with a Penumbra catheter. Next a 2.5 x 12 mm balloon was used to perform angioplasty of the mid LAD lesion. Next a 3.0 x 23 mm Xience MARCI was placed at the mid LAD. The proximal portion of the stent was postdilated with a 3.5 noncompliant balloon. Prevention there was 99% stenosis and JAYLA 2 flow and postintervention there is less than 10% stenosis and JAYLA-3 flow. There was still a 75-80% stenosis of the mid to distal LAD and therefore a 2.75 x 8mm Xience MARCI was placed. Prevention there was JAYLA 2 flow and 75% stenosis and postintervention there was 0% stenosis and JAYLA-3 flow. The apical LAD was felt to be subtotally occluded and felt best treated medically. There was moderate 40-50% disease distal to the mid LAD stent which was felt best treated medically. There was no dissection noted. The right radial sheath was removed and a TR band was placed with hemostasis achieved. The patient tolerated the procedure well. Patient was transported back to the post catheterization holding area in stable condition. Conscious Sedation: Patient was monitored under the direct supervision of vision of myself for conscious sedation using Versed and fentanyl for a total duration of [] minutes HEMODYNAMICS: Ao: 96/58 LV: 95/20, LVEDP 30 SELECTIVE CORONARY ARTERIOGRAPHY: LEFT MAIN: The left main is a large caliber vessel which bifurcates into the LAD and circumflex. There is LEFT ANTERIOR DESCENDING CORONARY ARTERY: LAD is a large caliber vessel which wraps around to the apex. There is proximal LAD diffuse mild calcified 20% stenosis. There is a 99% mid LAD stenosis with heavy calcification as well as thrombus. More distal to this lesion there is a 40-50% stenosis at the level of the diagonal 2 branch. There is a more focal 75% stenosis of the mid to distal LAD. The apical LAD appears subtotally occluded, 100% with some left to left collaterals. There is JAYLA 2 flow. LEFT CIRCUMFLEX CORONARY ARTERY: Left circumflex is a moderate caliber vessel with diffuse mild to moderate disease including a mid 40% circumflex stenosis. RIGHT CORONARY ARTERY: The right coronary artery is a large caliber vessel which gives off a PDA and PLV branch and is the dominant vessel. There is a long proximal to mid 50-60% heavily calcified RCA stenosis. Otherwise there is mild tenderness to 20% stenosis. There is JAYLA 2-3 flow likely related to microvascular dysfunction. FINAL IMPRESSION: 1. Coronary artery disease as described above including mid LAD 99% stenosis, mid to distal LAD 75% stenosis, apical LAD 100% stenosis, circumflex 40% stenosis, RCA 50-60% stenosis 2. S/p successful Penumbra aspiration thrombcetomy LAD, PCI mid LAD with a 3.0 x 23mm Xience MARCI, post dilated proximally with 3.5 NC balloon and PCI of mid to distal LAD with a 2.75 x 8mm Xience MARCI 3. Elevated left sided filling pressures PLAN: 1. Aggressive risk factor modification per most recent ACC/AHA guidelines. 2. Continue dual anti platelets for 12 months.
[2020-12-18 12:35] LABS: Glucose,Whole Blood 163 mg/dL (75-99)
[2020-12-18] MEDS ORDERED: NICOTINE GUM (POLACRILEX) 2 MG GUM BUCCAL PRN (14:47)
[2020-12-18] MEDS: NICOTINE 21MG/24HR PATCH TRANSDERM SCH (15:43)
[2020-12-18 16:40] LABS: Glucose,Whole Blood 149 mg/dL (75-99)
[2020-12-18] MEDS: ATORVASTATIN 40 MG TAB PO SCH (20:06)
[2020-12-18] MEDS: TICAGRELOR 90 MG TAB PO SCH (20:07)
[2020-12-18] MEDS: LATANOPROST 0.005% OPHTH DROPS 2.5 ML BTL BOTH EYES SCH (20:09)
[2020-12-18 20:30] LABS: Glucose,Whole Blood 178 mg/dL (75-99)
[2020-12-18] MEDS: SYMBICORT 160-4.5 MCG INHALER INHALATION SCH (20:34)
[2020-12-18] MEDS ORDERED: ATORVASTATIN 20 MG TAB PO SCH (21:00)
[2020-12-18] MEDS ORDERED: BRIMONIDINE TARTRATE 0.2% DROPS 5 ML BTL BOTH EYES SCH (21:00)
[2020-12-19 06:29] LABS: African American GFR (CKD) 85 (>60 ml/min/1.73 sqM); Anion Gap 7 mmol/L; Blood Urea Nitrogen 21 mg/dL (9-20); Carbon Dioxide 25 mmol/L (22-30); Chloride 106 mmol/L (98-107); Glucose 153 mg/dL (74-99); Non-African American GFR(CKD) 73 (>60 ml/min/1.73 sqM); Sodium 138 mmol/L (137-145)
[2020-12-19 06:30] LABS: Calcium 9.2 mg/dL (8.4-10.2)
[2020-12-19 07:07] LABS: Glucose,Whole Blood 145 mg/dL (75-99)
[2020-12-19] MEDS: MULTIVITAMINS, THERA 1 EACH TAB PO SCH (08:02)
[2020-12-19] MEDS: ASPIRIN 81 MG PO SCH (08:02)
[2020-12-19] MEDS: NICOTINE 21MG/24HR PATCH TRANSDERM SCH (08:02)
[2020-12-19] MEDS: INSULIN ASPART (NovoLOG) 100 UNIT/ML VIAL SQ SCH ×4 (08:02→20:38)
[2020-12-19] MEDS: TICAGRELOR 90 MG TAB PO SCH ×2 (08:03→20:39)
[2020-12-19] MEDS: LOSARTAN 50 MG TAB PO SCH (08:03)
[2020-12-19] MEDS: DOCUSATE 100 MG CAP PO SCH ×2 (08:03→20:39)
[2020-12-19] MEDS: METOPROLOL TARTRATE 12.5 MG TAB PO SCH ×2 (08:04→20:39)
[2020-12-19] MEDS: DORZOLAMIDE HCL 2% DROPS 10 ML BTL BOTH EYES SCH ×2 (08:04→20:39)
[2020-12-19] MEDS: BRIMONIDINE TARTRATE 0.2% DROPS 5 ML BTL BOTH EYES SCH ×2 (08:05→20:39)
[2020-12-19 08:10] LABS: Magnesium 2.1 mg/dL (1.6-2.3)
[2020-12-19] MEDS: SYMBICORT 160-4.5 MCG INHALER INHALATION SCH ×2 (08:32→19:54)
[2020-12-19] MEDS ORDERED: hydroCHLOROthiazide 25 MG TAB PO SCH (09:00)
[2020-12-19] MEDS ORDERED: ASPIRIN 325 MG TAB PO SCH (09:00)
[2020-12-19 09:08] LABS: INR 0.99 (0.90-1.11); Prothrombin Time 10.8 sec (9.9-11.9)
[2020-12-19 09:18] LABS: Basophils # (A) 0.07 X 10*3/uL (0.00-0.10); Basophils % (A) 0.6 %; Eosinophils # (A) 0.28 X 10*3/uL (0.04-0.35); Eosinophils % (A) 2.3 %; HCT 40.5 % (39.6-50.0); HGB 13.8 g/dL (13.0-17.0); Lymphocytes # (A) 2.02 X 10*3/uL (0.90-5.00); Lymphocytes % (A) 16.5 %; MCH 33.2 pg (27.0-32.0); MCHC 34.1 g/dL (32.0-37.0); MCV 97.4 fL (80.0-97.0); Mean Platelet Volume 11.5 fL (9.5-12.2); Monocytes # (A) 1.24 X 10*3/uL (0.20-1.00); Monocytes % (A) 10.1 %; Neutrophils # (A) 8.56 X 10*3/uL (1.80-7.70); Neutrophils % (A) 69.8 %; Platelet Count 166 X 10*3/uL (140-440); RBC 4.16 X 10*6/uL (4.40-5.60); RDW 14.2 % (11.5-14.5); WBC 12.25 X 10*3/uL (4.50-10.00)
--- NOTE | 2020-12-19 10:46 | P.PN ---
Subjective This is a pleasant 75-year-old with past medical history significant for Hypertension, hyperlipidemia, diabetes mellitus type 2, tobacco abuse who pr esents with indigestion, epigastric pain. 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 Troponin revealed 0.02, 0.3, 19.0. EKG revealed normal sinus rhythm, left axis deviation, incomplete left bundle with Q waves V1, minimal ST depression in lead 2 and T wave flattening in 3. 12/18/20 Patient underwent cardiac catheterization with Dr. Mcarthur which revealed mid LAD 99% stenosis, mid to distal LAD 75% stenosis, atypical due to 100% stenosis, circumflex 40% stenosis, RCA 5060 percent stenosis. Patient underwent successful Penumbra aspiration thrombectomy LAD, PCI mid LAD and PCI of mid to distal LAD. Patient seen and examined at bedside, no acute distress. He denies any chest pain, shortness of breath, lightheadedness, dizziness, palpitations. Blood pressure 99/58, heart rate 59, afebrile, maintaining oxygen saturations on 2 L nasal cannula. Telemetry reviewed patient maintaining sinus mechanism, heart rate 5060s. Laboratory data review WBC 12.2, hemoglobin 13, platelets 166, s odium 138, potassium 4.0, BUN 21, serum creatinine 1.0 lipid panel pending. Patient currently maintained on aspirin 1 mg daily, atorvastatin 40 mg daily, hydrochlorothiazide, losartan 100 mg daily, metoprolol titrate 25 mg twice a day, Brilinta 90 mg twice a day PHYSICAL EXAMINATION Vital signs reviewed. CONSTITUTIONAL: No apparent distress. HEENT: Neck Supple. No JVD. CHEST EXAMINATION: Lungs are clear to auscultation. No chest wall tenderness is noted on palpation or with deep breathing. HEART EXAMINATION: Regular rate and rhythm. S1, S2 heard. No murmurs, gallops or rub. ABDOMEN: Soft, nontender. Positive bowel sounds. EXTREMITIES: 2+ peripheral pulses, no lower extremity edema and no calf tenderness. SKIN: Right radial cath site, clean dry no hematoma 2+ pulses NEUROLOGIC EXAMINATION: Patient is awake, alert and oriented x3. ASSESSMENT Non-STEMI s/p PCI mid LAD and mid to distal LAD on 12/18/20 Diabetes mellitus type 2 Hypertension Hyperlipidemia Tobacco abuse PLAN Obtain 2D echocardiogram Continue dual antiplatelet therapy with aspirin and Brilinta. Case management consulted for Brilinta coverage Continue statin Stop hydrochlorothiazide Continue Losartan and metoprolol tartrate Further recommendations based on clinical course, hopefully discharge home in the next 24-48 hours. Objective - Vital Signs Vital signs: Vital Signs Temp 98 F 12/19/20 07:00 Pulse 59 L 12/19/20 07:00 Resp 16 12/19/20 07:00 BP 99/58 12/19/20 07:00 Pulse Ox 97 12/19/20 07:00 Intake & Output 12/18/20 12/19/20 12/19/20 18:59 06:59 18:59 Intake Total 223.915 200 Balance 223.915 200 Intake: IV 152.27 Intake, IV Titration 71.645 Amount Heparin Sod,Pork in 0.45% 71.645 NaCl 25,000 unit In 0.45 % NaCl 1 250ml.bag @ 11.6 UNITS/KG/HR 9.997 mls/hr IV .Q24H [facility] Rx#: [id number] Oral 200 Other: Voiding Method Toilet Toilet # Voids 1 2 # Bowel Movements 0 - Labs CBC & Chem 7: 12/19/20 05:56 12/19/20 05:56 Labs: Abnormal Lab Results - Last 24 Hours (Table) 12/18/20 12/18/20 12/18/20 Range/Units 12:30 16:36 20:29 WBC (4.50-10.00) X 10*3/uL RBC (4.40-5.60) X 10*6/uL MCV (80.0-97.0) fL MCH (27.0-32.0) pg Immature Gran # (0.00-0.04) X 10*3/uL Neutrophils # (1.80-7.70) X 10*3/uL Monocytes # (0.20-1.00) X 10*3/uL BUN (9-20) mg/dL Glucose (74-99) mg/dL POC Glucose (mg/dL) 163 H 149 H 178 H (75-99) mg/dL 12/19/20 12/19/20 12/19/20 Range/Units 05:56 05:56 07:05 WBC 12.25 H (4.50-10.00) X 10*3/uL RBC 4.16 L (4.40-5.60) X 10*6/uL MCV 97.4 H (80.0-97.0) fL MCH 33.2 H (27.0-32.0) pg Immature Gran # 0.08 H (0.00-0.04) X 10*3/uL Neutrophils # 8.56 H (1.80-7.70) X 10*3/uL Monocytes # 1.24 H (0.20-1.00) X 10*3/uL BUN 21 H (9-20) mg/dL Glucose 153 H (74-99) mg/dL POC Glucose (mg/dL) 145 H (75-99) mg/dL
[2020-12-19 11:58] LABS: Glucose,Whole Blood 183 mg/dL (75-99)
[2020-12-19 12:58] LABS: Hemoglobin A1C 7.4 % (4.0-6.0)
--- NOTE | 2020-12-19 13:25 | P.PN ---
<Mookie Ferreira - Last Filed: 12/19/20 13:23> Subjective Progress Note Date: 12/19/20 Hospital course: Patient is a 75-year-old male with past medical history of type II non-insulin- dependent diabetes mellitus,Nicotine dependence smoking one pack of cigarettes daily, hypertension, and hyperlipidemia. He presented to the hospital on 12/17/20 with a chief complaint of chest pain. An EKG was completed showing normal sinus rhythm at 79 bpm with an incomplete left bundle branch block, no previous EKGs available for comparison. Chest x-ray revealed mild atelectasis at bilateral lung bases. CBC revealing mild leukocytosis with a WBC count of 12.8 otherwise unremarkable. Coags were normal. BMP revealing mild prerenal azotemia with BUN of 29 and hyperglycemia with glucose of 262. Initial troponin 0.029. Patient was given aspirin, atorvastatin, and started on heparin infusion per [facility] protocol. The patient was then admitted under our services with consultation to cardiology. Throughout the night while trending troponins patient's troponin was noted to significantly elevate from 0.029 to 0.319, and 19.00. Military Aircraft Designer at bedside with plans to take patient to research lab assistant later this morning. Physical exam: 12/18/20: Patient currently resting comfortably on heparin infusion and denying having any chest pain, palpitations, shortness of breath, Nausea, diaphoresis, back pain, or neck pain. Patient Was noted to have increasing troponins throughout the night elevating from 0.029 to 0.319, and 19.00. Cardiology was notified with plans to take patient for cardiac cath this morning. Admission orders placed for inpatient from observation status. 12/19/20: Patient seen and fully evaluated at bedside this morning. He is day 1 post cardiac catheterization resulting in successful PCI after findings of 99% stenosis to mid LAD, 75% stenosis to mid to distal LAD, and 100% stenosis of apical LAD requiring aspiration thrombectomy followed by an mid and distal PCI stenting. In addition patient was found to have 40% stenosis of circumflex and 50-60% stenosis of RCA. Patient started on dual antiplatelet therapy with cardiology recommending for patient to continue for 12 months along with aggressive lifestyle risk modifications. Had a Lengthy conversation with patient this morning regarding these important changes that he will need to make regarding lifestyle modifications Including diet, activity, and cessation of all tobacco products. Patient reports feeling great, he denies having any chest pain, palpitations, shortness of breath, nausea, dizziness, lightheadedness, or experiencing any numbness/tingling/weakness in his extremities. Physical exam: Vital signs reviewed and stable. General: Nontoxic, no distress and appears stated age. Derm: Skin warm and dry, normal coloration for ethnicity. Postcardiac cath site right wrist showing no signs of draining or hematoma. Head: Atraumatic, normocephalic and symmetric. Eyes: EOMs intact, no lid lag, and anicteric sclera Mouth: no lip lesions, mucus membranes moist Cardiovascular: regular rate and rhythm with normal S1S2, no murmur, positive posterior tibial pulses bilaterally, and cap refill < 2 seconds. Lungs: Respirations even, regular, and unlabored on room air. Lungs CTA bilaterally, no rhonchi, no rales, no wheezing, and no accessory muscle usage. Abdominal: soft, nontender to palpation, no guarding, no appreciable organomegaly Ext: ROM intact. No gross muscle atrophy, no edema, no contractures Neuro: Speech clear, face symmetrical and CN II-XII grossly intact with no noted focal neuro deficits Psych: Alert and oriented to person, place, time, and situation. Appropriate and pleasant affect. Assessment and Plan of Care: NSTEMI -Patient's troponin was noted to significantly elevate from 0.029 to 0.319, and 19.00. -EKG was completed showing normal sinus rhythm at 79 bpm with an incomplete left bundle branch block, no previous EKGs available for comparison. -Cardiology following -Cardiac catheterization revealed: 99% stenosis to mid LAD, 75% stenosis to mid to distal LAD, and 100% stenosis of apical LAD requiring aspiration thrombectomy followed by an mid and distal PCI stenting. In addition patient was found to have 40% stenosis of circumflex and 50-60% stenosis of RCA. -Patient started on dual antiplatelet therapy with cardiology recommending for patient to continue for 12 months along with aggressive lifestyle risk modifications. -Continue daily aspirin, atorvastatin, metoprolol. -Continuous telemetry monitoring. -Lipid profile and hemoglobin A1c pending results. Type II [id number] diabetes mellitus -Hold Glucophage and place patient on glycemic protocol with NovoLog sliding scale. -Hemoglobin A1c pending. Nicotine dependence -Continue to educate and encourage patient on the importance and benefits of smoking cessation and risks associated with continued use up to and including . -Nicotine patch Hypertension -Monitor vitals and continue daily medication regimen. Hyperlipidemia -Continue daily medication regimen. CODE STATUS: Full code DVT prophylaxis: Discussed with: Patient and RN Anticipated discharge date: Clinical course to determine Anticipated discharge place: Home A total of 45 minutes was spent on the care of this complex patient more than 50% of the time was spent in counseling and care coordination. Objective - Vital Signs Vital signs: Vital Signs Temp 98 F 12/19/20 07:00 Pulse 59 L 12/19/20 07:00 Resp 16 12/19/20 07:00 BP 99/58 12/19/20 07:00 Pulse Ox 97 12/19/20 07:00 Intake & Output 12/18/20 12/19/20 12/19/20 18:59 06:59 18:59 Intake Total 223.915 200 Balance 223.915 200 Intake: IV 152.27 Intake, IV Titration 71.645 Amount Heparin Sod,Pork in 0.45% 71.645 NaCl 25,000 unit In 0.45 % NaCl 1 250ml.bag @ 11.6 UNITS/KG/HR 9.997 mls/hr IV .Q24H [facility] Rx#: [id number] Oral 200 Other: Voiding Method Toilet Toilet # Voids 1 2 # Bowel Movements 0 - Labs CBC & Chem 7: 12/19/20 05:56 12/19/20 05:56 Labs: Abnormal Lab Results - Last 24 Hours (Table) 12/18/20 12/18/20 12/18/20 Range/Units 12:30 16:36 20:29 WBC (4.50-10.00) X 10*3/uL RBC (4.40-5.60) X 10*6/uL MCV (80.0-97.0) fL MCH (27.0-32.0) pg Immature Gran # (0.00-0.04) X 10*3/uL Neutrophils # (1.80-7.70) X 10*3/uL Monocytes # (0.20-1.00) X 10*3/uL BUN (9-20) mg/dL Glucose (74-99) mg/dL POC Glucose (mg/dL) 163 H 149 H 178 H (75-99) mg/dL 12/19/20 12/19/20 12/19/20 Range/Units 05:56 05:56 07:05 WBC 12.25 H (4.50-10.00) X 10*3/uL RBC 4.16 L (4.40-5.60) X 10*6/uL MCV 97.4 H (80.0-97.0) fL MCH 33.2 H (27.0-32.0) pg Immature Gran # 0.08 H (0.00-0.04) X 10*3/uL Neutrophils # 8.56 H (1.80-7.70) X 10*3/uL Monocytes # 1.24 H (0.20-1.00) X 10*3/uL BUN 21 H (9-20) mg/dL Glucose 153 H (74-99) mg/dL POC Glucose (mg/dL) 145 H (75-99) mg/dL <Vanessa Damon - Last Filed: 12/19/20 16:06> Objective - Vital Signs Vital signs: Vital Signs Temp 98.5 F 12/19/20 15:00 Pulse 61 12/19/20 15:00 Resp 17 12/19/20 15:00 BP 110/63 12/19/20 15:00 Pulse Ox 93 L 12/19/20 15:00 Intake & Output 12/18/20 12/19/20 12/19/20 18:59 06:59 18:59 Intake Total 223.915 200 Balance 223.915 200 Weight 86.183 kg Intake: IV 152.27 Intake, IV Titration 71.645 Amount Heparin Sod,Pork in 0.45% 71.645 NaCl 25,000 unit In 0.45 % NaCl 1 250ml.bag @ 11.6 UNITS/KG/HR 9.997 mls/hr IV .Q24H [facility] Rx#: [id number] Oral 200 Other: Voiding Method Toilet Toilet Toilet # Voids 1 2 1 # Bowel Movements 0 - Labs CBC & Chem 7: 12/19/20 05:56 12/19/20 05:56 Labs: Abnormal Lab Results - Last 24 Hours (Table) 12/18/20 12/18/20 12/19/20 Range/Units 16:36 20:29 05:56 WBC (4.50-10.00) X 10*3/uL RBC (4.40-5.60) X 10*6/uL MCV (80.0-97.0) fL MCH (27.0-32.0) pg Immature Gran # (0.00-0.04) X 10*3/uL Neutrophils # (1.80-7.70) X 10*3/uL Monocytes # (0.20-1.00) X 10*3/uL BUN (9-20) mg/dL Glucose (74-99) mg/dL POC Glucose (mg/dL) 149 H 178 H (75-99) mg/dL Hemoglobin A1c 7.4 H (4.0-6.0) % Triglycerides (0.0-149.0) mg/dL HDL Cholesterol (40.0-60.0) mg/dL 12/19/20 12/19/20 12/19/20 Range/Units 05:56 05:56 07:05 WBC 12.25 H (4.50-10.00) X 10*3/uL RBC 4.16 L (4.40-5.60) X 10*6/uL MCV 97.4 H (80.0-97.0) fL MCH 33.2 H (27.0-32.0) pg Immature Gran # 0.08 H (0.00-0.04) X 10*3/uL Neutrophils # 8.56 H (1.80-7.70) X 10*3/uL Monocytes # 1.24 H (0.20-1.00) X 10*3/uL BUN 21 H (9-20) mg/dL Glucose 153 H (74-99) mg/dL POC Glucose (mg/dL) 145 H (75-99) mg/dL Hemoglobin A1c (4.0-6.0) % Triglycerides 172.0 H (0.0-149.0) mg/dL HDL Cholesterol 28.0 L (40.0-60.0) mg/dL 12/19/20 Range/Units 11:57 WBC (4.50-10.00) X 10*3/uL RBC (4.40-5.60) X 10*6/uL MCV (80.0-97.0) fL MCH (27.0-32.0) pg Immature Gran # (0.00-0.04) X 10*3/uL Neutrophils # (1.80-7.70) X 10*3/uL Monocytes # (0.20-1.00) X 10*3/uL BUN (9-20) mg/dL Glucose (74-99) mg/dL POC Glucose (mg/dL) 183 H (75-99) mg/dL Hemoglobin A1c (4.0-6.0) % Triglycerides (0.0-149.0) mg/dL HDL Cholesterol (40.0-60.0) mg/dL Assessment and Plan Assessment: Patient seen and examined independently. Patient was also seen by Mookie Ferreira NP and case was discussed. I am in agreement with subjective, physical exam, assessment and plan as written above and amended below. Discussed with the patient and at bedside. Currently awaiting echocardiogr am results. He will need to stop smoking. His A1c of 7.4, states his last was 6.9. I've asked him to take his blood sugars morning prior to breakfast and make a log for his primary care physician and Follow-up in 1-2 days after discharge as his A1c is increasing and is already maxed out on 3 oral medications in the next up would be insulin however the A1c is not severely elevated. General: non toxic, no distress, appears at stated age Derm: warm, dry Head: atraumatic, normocephalic, symmetric Eyes: EOMI, no lid lag, anicteric sclera Mouth: no lip lesion, mucus membranes moist Cardiovascular: S1S2 reg, no murmur, positive posterior tibial pulse bilateral, Lungs: CTA bilateral, no rhonchi, no rales , no accessory muscle use Abdominal: soft, nontender to palpation, no guarding, no appreciable organomegaly Ext: no gross muscle atrophy, no edema, no contractures Neuro: CN II-XI grossly intact, no focal neuro deficits Psych: Alert, oriented, appropriate affect
[2020-12-19 13:40] VITALS: BMI 26.4
[2020-12-19 15:43] LABS: Chol/HDL Ratio 3.79; Cholesterol 106 mg/dL (0-200); LDL Cholesterol,Calculated 43.6 mg/dL (0.0-131.0)
[2020-12-19 17:13] LABS: Glucose,Whole Blood 139 mg/dL (75-99)
[2020-12-19] MEDS: HEPARIN SODIUM,PORCINE/PF 5,000 UNIT/0.5 ML SYRINGE SQ SCH (18:26)
[2020-12-19 19:30] VITALS: RESP 18
[2020-12-19 20:16] LABS: Glucose,Whole Blood 185 mg/dL (75-99)
[2020-12-19] MEDS: ATORVASTATIN 40 MG TAB PO SCH (20:39)
[2020-12-19] MEDS: LATANOPROST 0.005% OPHTH DROPS 2.5 ML BTL BOTH EYES SCH (22:59)
[2020-12-20] MEDS: HEPARIN SODIUM,PORCINE/PF 5,000 UNIT/0.5 ML SYRINGE SQ SCH ×2 (00:25→08:21)
[2020-12-20 07:22] LABS: Glucose,Whole Blood 163 mg/dL (75-99)
[2020-12-20] MEDS: SYMBICORT 160-4.5 MCG INHALER INHALATION SCH (07:23)
[2020-12-20] MEDS: MULTIVITAMINS, THERA 1 EACH TAB PO SCH (08:18)
[2020-12-20] MEDS: NICOTINE 21MG/24HR PATCH TRANSDERM SCH (08:18)
[2020-12-20] MEDS: LOSARTAN 50 MG TAB PO SCH (08:19)
[2020-12-20] MEDS: ASPIRIN 81 MG PO SCH (08:19)
[2020-12-20] MEDS: DOCUSATE 100 MG CAP PO SCH (08:19)
[2020-12-20] MEDS: INSULIN ASPART (NovoLOG) 100 UNIT/ML VIAL SQ SCH ×2 (08:20→12:24)
[2020-12-20] MEDS: METOPROLOL TARTRATE 12.5 MG TAB PO SCH (08:20)
[2020-12-20] MEDS: BRIMONIDINE TARTRATE 0.2% DROPS 5 ML BTL BOTH EYES SCH (08:22)
[2020-12-20] MEDS: DORZOLAMIDE HCL 2% DROPS 10 ML BTL BOTH EYES SCH (08:22)
[2020-12-20] MEDS: TICAGRELOR 90 MG TAB PO SCH (08:23)
[2020-12-20 08:28] VITALS: BP 102/71; PULSE 57; TEMP 98.1
[2020-12-20] MEDS ORDERED: SPIRONOLACTONE 25 MG TAB PO SCH (09:15)
--- NOTE | 2020-12-20 09:52 | P.PN ---
Subjective This is a pleasant 75-year-old with past medical history significant for Hypertension, hyperlipidemia, diabetes mellitus type 2, tobacco abuse who pr esents with indigestion, epigastric pain. 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 Troponin revealed 0.02, 0.3, 19.0. EKG revealed normal sinus rhythm, left axis deviation, incomplete left bundle with Q waves V1, minimal ST depression in lead 2 and T wave flattening in 3. 12/18/20 Patient underwent cardiac catheterization with Dr. Mcarthur which revealed mid LAD 99% stenosis, mid to distal LAD 75% stenosis, atypical due to 100% stenosis, circumflex 40% stenosis, RCA 5060 percent stenosis. Patient underwent successful Penumbra aspiration thrombectomy LAD, PCI mid LAD and PCI of mid to distal LAD. Patient seen and examined at bedside, no acute distress. He denies any chest pain, shortness of breath, lightheadedness, dizziness, palpitations. He states he did not sleep well overnight. Blood pressure 102/71, heart rate 57, afebrile, maintaining oxygen saturations on room air. Telemetry reviewed patient maintaining sinus mechanism heart rate 5060s. He does have occasional PVCs. Laboratory data pending for today. Patient currently maintained on aspirin 1 mg daily, atorvastatin 40 mg daily, losartan 100 mg daily, metoprolol tartrate 12.5 mg twice a day, Brilinta 90 mg twice a day Echocardiogram revealed an EF of 3540%, mid anterior, mid anteriorseptal, apical LV wall motion hypokinetic, RV is mildly enlarged, mild to moderate aortic regurgitation, mild mitral regurgitation, mild tricuspid regurgitation, aortic root is dilated at 4.2 cm. PHYSICAL EXAMINATION Vital signs reviewed. CONSTITUTIONAL: No apparent distress. HEENT: Neck Supple. No JVD. CHEST EXAMINATION: Lungs are clear to auscultation. No chest wall tenderness is noted on palpation or with deep breathing. HEART EXAMINATION: Regular rate and rhythm. S1, S2 heard. No murmurs, gallops or rub. ABDOMEN: Soft, nontender. Positive bowel sounds. EXTREMITIES: 2+ peripheral pulses, no lower extremity edema and no calf tenderness. SKIN: Right radial cath site, clean dry no hematoma 2+ pulses NEUROLOGIC EXAMINATION: Patient is awake, alert and oriented x3. ASSESSMENT Non-STEMI s/p PCI mid LAD and mid to distal LAD on 9/19/21 Ischemic cardiomyopathy EF 35-40% Diabetes mellitus type 2 Hypertension Hyperlipidemia Tobacco abuse PLAN Add spironolactone 25mg daily Decrease losartan to 50mg daily Continue dual antiplatelet therapy with aspirin and Brilinta. Brilinta is $399 co-pay per case management. Patient will receive 1 free month, potentially elgible for coupon per the pharmacy. If patient unable to afford co-pay will give 1 month free of Brilinta and transition to Plavix 75mg daily in the office. Continue statin Continue metoprolol tartrate 12.5mg BID From a cardiology perspective, patient can be discharged home and follow up with Dr. Mcarthur, in 1 week. Objective - Vital Signs Vital signs: Vital Signs Temp 98.1 F 12/20/20 07:00 Pulse 57 L 12/20/20 07:00 Resp 18 12/20/20 07:00 BP 102/71 12/20/20 07:00 Pulse Ox 96 12/20/20 07:25 Intake & Output 12/19/20 12/20/20 12/20/20 18:59 06:59 18:59 Intake Total 200 250 Balance 200 250 Weight 86.183 kg Intake: Oral 200 250 Other: Voiding Method Toilet Toilet # Voids 1 2 # Bowel Movements 0 - Labs CBC & Chem 7: 12/19/20 05:56 12/19/20 05:56 Labs: Abnormal Lab Results - Last 24 Hours (Table) 12/19/20 12/19/20 12/19/20 Range/Units 05:56 05:56 11:57 POC Glucose (mg/dL) 183 H (75-99) mg/dL Hemoglobin A1c 7.4 H (4.0-6.0) % Triglycerides 172.0 H (0.0-149.0) mg/dL HDL Cholesterol 28.0 L (40.0-60.0) mg/dL 12/19/20 12/19/20 12/20/20 Range/Units 17:10 20:14 07:21 POC Glucose (mg/dL) 139 H 185 H 163 H (75-99) mg/dL Hemoglobin A1c (4.0-6.0) % Triglycerides (0.0-149.0) mg/dL HDL Cholesterol (40.0-60.0) mg/dL
[2020-12-20 11:14] LABS: Anion Gap 12.1 mmol/L (4.00-12.00); Calcium 9.1 mg/dL (8.7-10.3); Carbon Dioxide 22.9 mmol/L (21.6-31.8); Non-African American GFR(CKD) 73.3 (60.0-200.0); Potassium 3.9 mmol/L (3.5-5.5)
[2020-12-20 12:03] LABS: Glucose,Whole Blood 257 mg/dL (75-99)
--- NOTE | 2020-12-20 13:11 | P.DS ---
Providers Date of admission: 12/19/20 13:27 Expected date of discharge: 12/20/20 Attending physician: Jasmin Odom MD Consults: 12/18/20 00:20 Consult Physician Routine Consulting Provider: Gale Reynoso Consult Reason/Comments: chest pain Do you want consulting provider notified?: Yes 12/18/20 12:19 Consult Physician Routine Consulting Provider: [facility] Consult Reason/Comments: Post Interventional patient Do you want consulting provider notified?: Already Contacted Primary care physician: Ebenezer Sinclair [facility] Course: Discharge Diagnosis: NSTEMI Type II pkm-jldvnlj-rejxydbgu diabetes mellitus Nicotine dependence Hypertension Hyperlipidemia Hospital Course: Patient is a 75-year-old male with past medical history of type II zxa-bpnnbwq-vwozzxvtj diabetes mellitus,Nicotine dependence smoking one pack of cigarettes daily, hypertension, and hyperlipidemia. He presented to the hospital on 12/17/20 with a chief complaint of chest pain. An EKG was completed showing normal sinus rhythm at 79 bpm with an incomplete left bundle branch block, no previous EKGs available for comparison. Chest x-ray revealed mild atelectasis at bilateral lung bases. CBC revealing mild leukocytosis with a WBC count of 12.8 otherwise unremarkable. Coags were normal. BMP revealing mild prerenal azotemia with BUN of 29 and hyperglycemia with glucose of 262. Initial troponin 0.029. Patient was given aspirin, atorvastatin, and started on heparin infusion per [facility] protocol. The patient was then admitted under our services with consultation to cardiology. Throughout the night pt's troponins were noted to significantly elevate from 0.029 to 0.319, and 19.00. Cardiology took patient to [employer]. Cardiac catheterization revealed: 99% stenosis to mid LAD, 75% stenosis to mid to distal LAD, and 100% stenosis of apical LAD requiring aspiration thrombectomy followed by an mid and distal PCI stenting. In addition patient was found to have 40% stenosis of circumflex and 50-60% stenosis of RCA In which cardiology recommending to maximize medical management. Patient started on dual antiplatelet therapy with Plavix and aspirin Cadence cardiology recommending patient to continue with dual therapy for 12 months. Long discussions were made with patient regarding aggressive lifestyle risk modifications including diet, activity, and cessation of smoking. Patient's condition remained stable status post cardiac catheterization and stent placement. Echocardiogram was completed in which official report is pending, however per cardiology documentation patient's echocardiogram revealed an EF of 35-40% with mild anterior, mild anterior septal, apical left ventricular wall motion hypokinesis with right ventricle mildly enlarged, mild to moderate aortic regurgitation, mild mitral regurgitation, mild tricuspid regurgitation, and aortic root dilated at 4.2 cm. Lipid profile revealing elevated triglycerides at 172.0 and a low HDL of 28.0 otherwise normal findings. Patient's home atorvastatin was increased from 20 mg nightly to 40 mg nightly. Hemoglobin A1c 7.4%. Patient currently maxed out on oral therapy next up is insulin. Had long discussion with patient regarding aggressive lifestyle risk modifications and changes that can be made. Patient to follow-up with PCP for repeat hemoglobin A1c and continued long-term close monitoring and management of diabetes. Cardiology cleared patient for discharge home recommending patient follow-up in their office. Patient is medically stable for discharge home. Patient to follow-up with PCP in 1-2 days and cardiology in 1 week. Prescription sent for aspirin, Brilinta, Nitroglycerine, atorvastatin, spironolactone, metoprolol, and losartan. Physical exam: Patient's condition stable this morning. He was seen and fully evaluated at the bedside. Denying having any complaints including Dizziness, lightheadedness, chest pain, palpitations, shortness of breath, cough, or swelling in his legs. Vital signs reviewed and stable. General: Nontoxic, no distress and appears stated age. Derm: Skin warm and dry, normal coloration for ethnicity. Postcardiac cath site right wrist showing no signs of draining or hematoma. Head: Atraumatic, normocephalic and symmetric. Eyes: EOMs intact, no lid lag, and anicteric sclera Mouth: no lip lesions, mucus membranes moist Cardiovascular: regular rate and rhythm with normal S1S2, no murmur, positive posterior tibial pulses bilaterally, and cap refill < 2 seconds. Lungs: Respirations even, regular, and unlabored on room air. Lungs CTA bilaterally, no rhonchi, no rales, no wheezing, and no accessory muscle usage. Abdominal: soft, nontender to palpation, no guarding, no appreciable organomegaly Ext: ROM intact. No gross muscle atrophy, no edema, no contractures Neuro: Speech clear, face symmetrical and CN II-XII grossly intact with no noted focal neuro deficits Psych: Alert and oriented to person, place, time, and situation. Appropriate and pleasant affect. A total of 45 minutes of time were spent preparing this complex discharge summary. Plan - Discharge Summary Discharge Rx Participant: No New Discharge Prescriptions: New Aspirin 81 mg PO DAILY tab Ticagrelor [Brilinta] 90 mg PO BID 30 Days #60 tab Nitroglycerin Sl Tabs [Nitrostat] 0.4 mg SUBLINGUAL Q5M PRN #25 tab PRN Reason: Chest Pain Atorvastatin [Lipitor] 40 mg PO HS 30 Days #30 tab Spironolactone [Aldactone] 25 mg PO DAILY 30 Days #30 tab Metoprolol Tartrate [Lopressor] 12.5 mg PO BID 30 Days #60 tab Losartan [Cozaar] 50 mg PO DAILY 30 Days #30 tab Continue Latanoprost Ophth [Xalatan 0.005%] 1 drops BOTH EYES HS Empagliflozin [Jardiance] 25 mg PO DAILY Alogliptin Benzoate [Alogliptin] 25 mg PO DAILY Cinnamon Bark [Cinnamon] 1,000 mg PO BID Cholecalciferol [Vitamin D3 (10 Mcg = 400 Iu)] 20 mcg PO DAILY Ascorbic Acid [Vitamin C] 500 mg PO DAILY Multivitamins, Thera [Multivitamin (formulary)] 1 tab PO DAILY metFORMIN HCL [Glucophage] 1,000 mg PO BID Budesonide/Formoterol Fumarate [Symbicort 160-4.5 Mcg Inhaler] 2 puff INHALATION RT-BID Brimonidine Tartrate [Alphagan P 0.2% Ophth Soln] 1 drops BOTH EYES BID Discontinued hydroCHLOROthiazide [Hydrodiuril] 25 mg PO DAILY Atorvastatin Calcium [Lipitor] 20 mg PO HS Losartan Potassium 100 mg PO DAILY Discharge Medication List Empagliflozin [Jardiance] 25 mg PO DAILY 10/19/16 [History] Latanoprost Ophth [Xalatan 0.005%] 1 drops BOTH EYES HS 10/19/16 [History] Alogliptin Benzoate [Alogliptin] 25 mg PO DAILY 12/18/20 [History] Ascorbic Acid [Vitamin C] 500 mg PO DAILY 12/18/20 [History] Brimonidine Tartrate [Alphagan P 0.2% Ophth Soln] 1 drops BOTH EYES BID 12/18/20 [History] Budesonide/Formoterol Fumarate [Symbicort 160-4.5 Mcg Inhaler] 2 puff INHALATION RT-BID 12/18/20 [History] Cholecalciferol [Vitamin D3 (10 Mcg = 400 Iu)] 20 mcg PO DAILY 12/18/20 [ History] Cinnamon Bark [Cinnamon] 1,000 mg PO BID 12/18/20 [History] Multivitamins, Thera [Multivitamin (formulary)] 1 tab PO DAILY 12/18/20 [History] metFORMIN HCL [Glucophage] 1,000 mg PO BID 12/18/20 [History] Aspirin 81 mg PO DAILY tab 12/19/20 [Rx] Atorvastatin [Lipitor] 40 mg PO HS 30 Days #30 tab 12/19/20 [Rx] Nitroglycerin Sl Tabs [Nitrostat] 0.4 mg SUBLINGUAL Q5M PRN #25 tab 12/19/20 [Rx ] Ticagrelor [Brilinta] 90 mg PO BID 30 Days #60 tab 12/19/20 [Rx] Losartan [Cozaar] 50 mg PO DAILY 30 Days #30 tab 12/20/20 [Rx] Metoprolol Tartrate [Lopressor] 12.5 mg PO BID 30 Days #60 tab 12/20/20 [Rx] Spironolactone [Aldactone] 25 mg PO DAILY 30 Days #30 tab 12/20/20 [Rx] Follow up Appointment(s)/Referral(s): Goyo Mcarthur DO [STAFF PHYSICIAN] - 1 Week (Office will call with date and time) Ebenezer Guerrero MD [Primary Care Provider] - 1-2 days Patient Instructions/Handouts: Heart Attack (DC), Left Heart Catheterization (DC), Heart Healthy Diet (DC), Coronary Intravascular Stent Placement (GEN), After Radial Heart Catheterization (GEN) Activity/Diet/Wound Care/Special Instructions: Activity: As tolerated. Take breaks as needed. Diet: Heart healthy and carb consistent diet. Avoid salts, or foods with hidden salts such as canned or boxed foods and frozen dinners. Extra salt makes your heart work harder and traps the fluid in your body for longer. Special Instructions: Cardiology Instructions: -Please take aspirin 81mg daily (you can get this medication over the counter which is more cost effective). -Take Brilinta 90mg twice a day. (Unfortunately Brilinta co-pay is expensive, you will recieve a free month prescription from the pharmacy. If unable to afford your co-pay after the first month, When you follow up at [facility] office with Dr. Mcarthur they can switch you to Plavix 75mg twice a day). You will be taking anti-platelet medication for a total of 12 months. -Continue atorvastatin daily -Continue metoprolol tartrate twice a day -Continue spironolactone daily -Follow up with Dr. Mcarthur in 1 week. Weigh yourself every morning after you urinate. If you gain 3 pounds overnight or more than 5 pounds in one week, call your primary physician and home assessment nurse for guidance on your medications or they may want to see you in their office. Keep a daily log of your weights and be sure to bring with you at follow up visits with your PCP and home assessment nurse. You are being discharged home on multiple new medications including aspirin, Brilinta, Nitroglycerine, atorvastatin, spironolactone, metoprolol, and losartan, Take all of your medications as directed, NEVER skip a dose. And remember to keep all of your doctor's appointments and follow-up as needed. Call your primary care provider and home assessment nurse if you notice any Chest pain/heaviness/or discomfort, extra swelling in your legs, ankles, feet or abdomen, if you have a new dry cough, if your shortness of breath worsens with activity or at rest, or if you feel more fatigued. Thank you for allowing us to participate in your care, it was truly a pleasure having you for our patient!!! And again.Thank you for your service in the [employer] and for sharing your wonderful stories of [place]!!! I truly wish you the best of luck with your new lifestyle modifications as we discussed. Cessation of smoking is going to be difficult, but truly beneficial to your health and well-being in the long run!! Discharge Disposition: HOME SELF-CARE
--- NOTE | 2020-12-20 15:54 | ECHOF ---
Referral Reason: MEASUREMENTS -------- HEIGHT: 180.3 cm WEIGHT: 86.2 kg BP: 99/58 RVIDd: 3.5 cm (< 3.3) IVSd: 1.5 cm (0.6 - 1.1) LVIDd: 5.1 cm (3.9 - 5.3) LVPWd: 1.2 cm (0.6 - 1.1) IVSs: 2.0 cm LVIDs: 3.9 cm LVPWs: 1.6 cm LA Diam: 3.8 cm (2.7 - 3.8) LAESV Index (A-L): 24.13 ml/m Ao Diam: 4.2 cm (2.0 - 3.7) AV Cusp: 2.1 cm (1.5 - 2.6) MV EXCURSION: 15.488 mm (> 18.000) MV EF SLOPE: 34 mm/s (70 - 150) EPSS: 1.4 cm MV E Joe: 0.46 m/s MV DecT: 173 ms MV A Joe: 0.36 m/s MV E/A Ratio: 1.27 AR PHT: 821 ms RAP: 5.00 mmHg RVSP: 30.81 mmHg FINDINGS -------- Sinus rhythm. This was a technically adequate study. The left ventricular size is normal. There is moderate concentric left ventricular hypertrophy. O verall left ventricular systolic function is moderately impaired with, an EF between 35 - 40 %. Mid anterior LV wall motion is hypokinetic. Mid anteroseptal LV wall motion is hypokinetic. Apical anterior LV wall motion is hypokinetic. Apical lateral LV wall motion is hypokinetic. Apical i nferior LV wall motion is hypokinetic. Apical septum LV wall motion is hypokinetic. The right ventricle is mildly enlarged. Normal LA size by volume 22+/-6 ml/m2. The right atrial size is normal. Interatrial and interventricular septum intact. There is mild aortic valve sclerosis. There is xmit-om-kmebnrzw aortic regurgitation. The mitral valve leaflets are mildly thickened. Mild mitral regurgitation is present. The tricuspid valve appears structurally normal. Mild tricuspid regurgitation present. Right vent ricular systolic pressure is normal at < 35 mmHg. The pulmonic valve was not well visualized. The aortic root is dilated measuring 4.2cm. Normal inferior vena cava with normal inspiratory collapse consistent with estimated right atrial pre ssure of 5 mmHg. The inferior vena cava is mildly dilated. There is no pericardial effusion. CONCLUSIONS -------- 1. The left ventricular size is normal. 2. There is moderate concentric left ventricular hypertrophy. 3. Overall left ventricular systolic function is moderately impaired with, an EF between 35 - 40 %. 4. Mid anterior LV wall motion is hypokinetic. 5. Mid anteroseptal LV wall motion is hypokinetic. 6. Apical anterior LV wall motion is hypokinetic. 7. Apical lateral LV wall motion is hypokinetic. 8. Apical inferior LV wall motion is hypokinetic. 9. Apical septum LV wall motion is hypokinetic. 10. The right ventricle is mildly enlarged. 11. There is asux-sd-efiduhnu aortic regurgitation. 12. Mild mitral regurgitation is present. 13. Mild tricuspid regurgitation present. 14. The aortic root is dilated measuring 4.2cm. 15. The inferior vena cava is mildly dilated. 16. There is no pericardial effusion. CHHA: Lexus Javier RDCS
[2020-12-21] MEDS ORDERED: LOSARTAN 50 MG TAB PO SCH (09:00)
== END 2020-12-20 12:50 | disposition home or self-care (01) | DRG 247 ==
LOC: EC 22:48 → 6NMEDSUR 12-18 00:20 → OBSVTOIN 12-19 13:27
PROVIDERS: ADMIT Internal Medicine; ATTEND Internal Medicine
PROC: 027035Z Dilation of Coronary Artery, One Artery with Two Drug-eluting Intraluminal Devices, Percutaneous Approach (ICD-10-PCS; principal; 2020-12-17)
PROC: 02C03ZZ Extirpation of Matter from Coronary Artery, One Artery, Percutaneous Approach (ICD-10-PCS; 2020-12-17)
PROC: 4A023N7 Measurement of Cardiac Sampling and Pressure, Left Heart, Percutaneous Approach (ICD-10-PCS; 2020-12-17)
PROC: B2111ZZ Fluoroscopy of Multiple Coronary Arteries using Low Osmolar Contrast (ICD-10-PCS; 2020-12-17)
DX: I21.4 Non-ST elevation (NSTEMI) myocardial infarction (principal); J98.11 Atelectasis; D72.829 Elevated white blood cell count, unspecified; Z20.822 Contact with and (suspected) exposure to COVID-19; I25.10 Atherosclerotic heart disease of native coronary artery without angina pectoris; E11.65 Type 2 diabetes mellitus with hyperglycemia; E78.1 Pure hyperglyceridemia; I08.3 Combined rheumatic disorders of mitral, aortic and tricuspid valves; Z71.6 Tobacco abuse counseling; E78.5 Hyperlipidemia, unspecified; I77.810 Thoracic aortic ectasia; F17.210 Nicotine dependence, cigarettes, uncomplicated; I10 Essential (primary) hypertension; I25.5 Ischemic cardiomyopathy; I44.7 Left bundle-branch block, unspecified; Z79.02 Long term (current) use of antithrombotics/antiplatelets; Z79.82 Long term (current) use of aspirin; Z79.84 Long term (current) use of oral hypoglycemic drugs; Z79.899 Other long term (current) drug therapy; Z85.820 Personal history of malignant melanoma of skin; Z98.61 Coronary angioplasty status; Z86.79 Personal history of other diseases of the circulatory system
CPT/HCPCS: 36415; 71046; 80048; 80053; 80061; 82150; 83036; 83690; 83735; 84484; 85025; 85610; 85730; 87635; 93005; 93306; 93458; 94640; 94760; 99285

== ENCOUNTER 2021-03-12 13:02 | Emergency (ER) | payer MEDICARE, BC ==
[2021-03-12 13:09] VITALS: BP 129/79; PULSE 86; RESP 16; TEMP 97.1
--- NOTE | 2021-03-12 13:48 | ED ---
General Adult HPI - General Chief complaint: Urogenital Stated complaint: Retention Time Seen by Provider: 03/12/21 13:14 Source: patient, family, RN notes reviewed Mode of arrival: ambulatory Limitations: no limitations - History of Present Illness Initial comments: Patient is a pleasant 75-year-old male presenting to the emergency department with concerns for urinary retention. Patient has had mild symptoms over the past couple of weeks, worse last night and last urinated at 5 AM, only a small amount. Patient has suprapubic fullness. No history of similar symptoms prior to this. No fever. - Related Data Home Medications Medication Instructions Recorded Confirmed Empagliflozin [Jardiance] 25 mg PO DAILY 10/19/16 12/18/20 Latanoprost Ophth [Xalatan 0.005%] 1 drops BOTH EYES HS 10/19/16 12/18/20 Alogliptin Benzoate [Alogliptin] 25 mg PO DAILY 12/18/20 12/18/20 Ascorbic Acid [Vitamin C] 500 mg PO DAILY 12/18/20 12/18/20 Brimonidine Tartrate [Alphagan P 1 drops BOTH EYES BID 12/18/20 12/18/20 0.2% Ophth Soln] Budesonide/Formoterol Fumarate 2 puff INHALATION RT-BID 12/18/20 12/18/20 [Symbicort 160-4.5 Mcg Inhaler] Cholecalciferol [Vitamin D3 (10 20 mcg PO DAILY 12/18/20 12/18/20 Mcg = 400 Iu)] Cinnamon Bark [Cinnamon] 1,000 mg PO BID 12/18/20 12/18/20 Multivitamins, Thera [Multivitamin 1 tab PO DAILY 12/18/20 12/18/20 (formulary)] metFORMIN HCL [Glucophage] 1,000 mg PO BID 12/18/20 12/18/20 Previous Rx's Medication Instructions Recorded Aspirin 81 mg PO DAILY tab 12/19/20 Atorvastatin [Lipitor] 40 mg PO HS 30 Days #30 tab 12/19/20 Nitroglycerin Sl Tabs [Nitrostat] 0.4 mg SUBLINGUAL Q5M PRN #25 tab 12/19/20 Ticagrelor [Brilinta] 90 mg PO BID 30 Days #60 tab 12/19/20 Losartan [Cozaar] 50 mg PO DAILY 30 Days #30 tab 12/20/20 Metoprolol Tartrate [Lopressor] 12.5 mg PO BID 30 Days #60 tab 12/20/20 Spironolactone [Aldactone] 25 mg PO DAILY 30 Days #30 tab 12/20/20 Allergies Allergy/AdvReac Type Severity Reaction Status Date / Time oxycodone [From OxyContin] AdvReac Nausea & Verified 03/12/21 13:09 Vomiting Review of Systems ROS Statement: Those systems with pertinent positive or pertinent negative responses have been documented in the HPI. ROS Other: All systems not noted in ROS Statement are negative. 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 History of Any Multi-Drug Resistant Organisms: None Reported Past Surgical History: Cholecystectomy, Tonsillectomy Additional Past Surgical History / Comment(s): 35 cysts removed in the past. States large cyst removed from armpit. Colonoscopy in the past. Past Anesthesia/Blood Transfusion Reactions: No Reported Reaction Past Psychological History: No Psychological Hx Reported Smoking Status: Current every day smoker Past Alcohol Use History: None Reported Past Drug Use History: None Reported - Past Family History Father Family Medical History: Cancer Additional Family Medical History / Comment(s): Stomach Mother Family Medical History: No Reported History General Exam Limitations: no limitations General appearance: alert, in no apparent distress Head exam: Present: normocephalic Eye exam: Present: normal appearance Neck exam: Present: normal inspection Respiratory exam: Present: normal lung sounds bilaterally Cardiovascular Exam: Present: regular rate, normal rhythm GI/Abdominal exam: Present: soft, distended (Suprapubic) exam: Present: normal inspection Extremities exam: Present: normal inspection Neurological exam: Present: alert Psychiatric exam: Present: normal affect, normal mood Skin exam: Present: normal color Course Vital Signs 03/12/21 13:05 Temperature 97.1 F L Pulse Rate 86 Respiratory 16 Rate Blood Pressure 129/79 O2 Sat by Pulse 97 Oximetry Medical Decision Making - Medical Decision Making Patient reevaluated and feeling much better following 1200 mL of urine. Resolution of suprapubic distention Disposition Clinical Impression: Urinary retention Disposition: HOME SELF-CARE Condition: Stable Instructions (If sedation given, give patient instructions): Urinary Retention in Men (ED) Additional Instructions: Please follow-up with primary care physician in the next couple days for recheck. Please also follow-up with urology, number given. Return for not passing urine, abdominal pain, fevers, worsening symptoms or other concerns. Is patient prescribed a controlled substance at d/c from ED?: No Referrals: Ebenezer Guerrero MD [Primary Care Provider] - 1-2 days Time of Disposition: 13:47
== END 2021-03-12 14:32 | disposition home or self-care (01) ==
LOC: EC 13:02
DX: R33.9 Retention of urine, unspecified (principal); E11.9 Type 2 diabetes mellitus without complications; E78.5 Hyperlipidemia, unspecified; I10 Essential (primary) hypertension; F17.200 Nicotine dependence, unspecified, uncomplicated; Z79.84 Long term (current) use of oral hypoglycemic drugs; Z79.82 Long term (current) use of aspirin; Z88.5 Allergy status to narcotic agent; Z90.49 Acquired absence of other specified parts of digestive tract
CPT/HCPCS: 99283

== ENCOUNTER 2022-02-19 08:47 | Inpatient (IN) | payer MEDICARE, BC ==
[2022-02-19] MEDS ORDERED: SODIUM CHLORIDE 0.9% 1,000 ML IV ONE ×2 (08:53→11:44)
[2022-02-19 09:12] LABS: Basophils # (A) 0.1 k/uL (0-0.2); Basophils % (A) 0 %; Eosinophils # (A) 0.3 k/uL (0-0.7); Eosinophils % (A) 2 %; HCT 44.6 % (39.0-53.0); HGB 14.8 gm/dL (13.0-17.5); Lymphocytes # (A) 1.6 k/uL (1.0-4.8); Lymphocytes % (A) 8 %; MCH 32.8 pg (25.0-35.0); MCHC 33.2 g/dL (31.0-37.0); MCV 98.8 fL (80.0-100.0); Mean Platelet Volume 9.4; Monocytes % (A) 5 %; Neutrophils # (A) 17.7 k/uL (1.3-7.7); Neutrophils % (A) 84 %; Platelet Count 167 k/uL (150-450); RBC 4.52 m/uL (4.30-5.90); RDW 14.3 % (11.5-15.5)
[2022-02-19 09:22] LABS: Albumin 4.4 g/dL (3.5-5.0); Calcium 9.2 mg/dL (8.4-10.2); Total Bilirubin 1.5 mg/dL (0.2-1.3); Total Protein 7.6 g/dL (6.3-8.2)
--- NOTE | 2022-02-19 09:22 | CT ---
EXAMINATION TYPE: CT brain wo con CT DLP: 1133.6 mGycm, Automated exposure control for dose reduction was used. DATE OF EXAM: 02/19/2022 9:07 AM COMPARISON: Same day CTA head. CLINICAL INDICATION:Male, 76 years old with history of Neuro deficit, acute, stroke suspected, left s jamie weakness and slurred speech TECHNIQUE: Brain: Axial CT images of the brain were obtained with coronal and sagittal reformats created and rev iewed. Contrast used: None. Oral contrast used: None. FINDINGS: Brain: Extra-axial spaces: No abnormal extra-axial fluid collections. Ventricular system: Dilatation in proportion to cerebral atrophy. Cerebral parenchyma: Cerebral atrophy. No acute intraparenchymal hemorrhage or mass effect. Hypodense area within the right gannon radiata The calderon-white junction is well differentiated. Scattered hypoa ttenuating areas are seen within the white matter. Cerebellum: Unremarkable. Mass effect: No evidence of midline shift. Intracranial vasculature: Atherosclerotic calcifications of the intracranial vessels. Soft tissues: Normal. Calvarium/osseous structures: No depressed skull fracture. Paranasal sinuses and mastoid air cells: Mild scattered paranasal sinus disease. Visualized orbits: Orbital contents are intact. Findings communicated to Dr. Rosa Hernandez DO on 02/19/2022 9:[address] Damion Gregg. IMPRESSION: 1. No acute intracranial process. 2. Nonspecific white matter changes including right gannon radiata hypodensity with slightly asymmetr ic, likely secondary to chronic small vessel ischemic disease. Consider further evaluation with MRI.
[2022-02-19 09:25] LABS: Potassium 4.9 mmol/L (3.5-5.1)
--- NOTE | 2022-02-19 09:32 | CT ---
EXAMINATION TYPE: CT angio head neck DATE OF EXAM: 02/19/2022 COMPARISON: None HISTORY: Lt sided weakness CT DLP: 548.9 mGycm CONTRAST: Performed with IV Contrast, patient injected with 65 mL of Isovue 370. Combination Contrast CTA cervical carotids and [place] CTA cervical carotids with 3-D recons truction Contrast CTA of the cervical carotids was performed 3-D reconstruction imaging obtained at a separate workstation. Right carotid system: Mild plaque is seen of the right common carotid artery. There is mild plaque a lso noted at the carotid bulb and proximal ICA. No significant diameter reduction. ECA is patent. Right vertebral artery appears unremarkable. Left carotid system: Mild plaque is seen of the left common carotid artery. There is mild plaque als o noted at the carotid bulb and proximal ICA. No significant diameter reduction. ECA is patent. Lef t vertebral artery appears unremarkable. IMPRESSION: 1. No significant diameter reduction to account for the patient's symptoms. CTA [place] with 3-D reconstruction Contrast CTA of the [place] was performed 3-D reconstruction imaging obtained at a separate workstation. Vertebrobasilar system as well as intracranial portions of the internal carotid arteries and their ma [place]a tributaries are patent. I do not see evidence for sizable aneurysm or vascular malformation. Pl ease note MRI provides greater sensitivity and specificity. Visualized brain appears grossly unremar kable. IMPRESSION: 1. No significant abnormality. NASCET criteria was used in interpretation of this exam?
[2022-02-19 09:52] LABS: Prothrombin Time 10.9 sec (9.0-12.0)
[2022-02-19 09:54] LABS: Partial Thromboplastin Time 21.7 sec (22.0-30.0)
--- NOTE | 2022-02-19 10:10 | ED ---
Weakness HPI - General Chief complaint: Weakness Stated complaint: Stroke Time Seen by Provider: 02/19/22 08:47 Source: patient, EMS Mode of arrival: EMS Limitations: physical limitation - History of Present Illness Initial comments: 76-year-old male with past medical history of diabetes, hypertension, hyperlipidemia who presents to the emergency department with left-sided weakness. EMS originally reported that last known well was last night as patie nt woke up with his symptoms. When patient arrives in the ED, he reported it to me that he went to bed and felt fine. He awoke at 3:00 this morning to use the restroom and continued to feel his normal self. He then awoke at approximately 645 and from waking up he had symptoms of left-sided facial droop, left upper extremity weakness. He denies previous history of stroke. EMS found that the patient was hypoxic with an oxygenation of 85% on room air. He has a history of COPD ever denies any recent fevers, chills or cough. Patient has a notably low blood pressure. Patient reports that his blood pressure normally runs low, around 110 systolic. He denies any abdominal pain. He does not take any anticoagulation. No chest pain. No cardiac history. He denies any changes in his bowel or bladder habits. No head trauma. No other alleviating, precipitating or modifying factors - Related Data Home Medications Medication Instructions Recorded Confirmed Empagliflozin [Jardiance] 25 mg PO DAILY 10/19/16 02/19/22 Latanoprost Ophth [Xalatan 0.005%] 1 drop BOTH EYES HS 10/19/16 02/19/22 Alogliptin Benzoate [Alogliptin] 25 mg PO DAILY 12/18/20 02/19/22 Ascorbic Acid [Vitamin C] 500 mg PO DAILY 12/18/20 02/19/22 Brimonidine Tartrate [Alphagan P 1 drops BOTH EYES BID 12/18/20 02/19/22 0.2% Ophth Soln] Cholecalciferol [Vitamin D3 (10 20 mcg PO DAILY 12/18/20 02/19/22 Mcg = 400 Iu)] Cinnamon Bark [Cinnamon] 1,000 mg PO BID 12/18/20 02/19/22 Multivitamins, Thera [Multivitamin 1 tab PO DAILY 12/18/20 02/19/22 (formulary)] Atorvastatin Calcium [Lipitor] 40 mg PO HS 02/19/22 02/19/22 Clopidogrel [Plavix] 75 mg PO DAILY 02/19/22 02/19/22 Fluticasone Propion/Salmeterol 1 puff INHALATION RT-BID 02/19/22 02/19/22 [Fluticasone-Salmeterol 250-50] Losartan [Cozaar] 25 mg PO DAILY 02/19/22 02/19/22 Metoprolol Tartrate [Lopressor] 12.5 mg PO BID 02/19/22 02/19/22 hydroCHLOROthiazide 25 mg PO DAILY 02/19/22 02/19/22 metFORMIN HCL ER [Glucophage XR] 500 mg PO BID 02/19/22 02/19/22 rOPINIRole HCL [Requip] 1 mg PO HS 02/19/22 02/19/22 Previous Rx's Medication Instructions Recorded Spironolactone [Aldactone] 25 mg PO DAILY 30 Days #30 tab 12/20/20 Allergies Allergy/AdvReac Type Severity Reaction Status Date / Time oxycodone [From OxyContin] AdvReac Nausea & Verified 02/19/22 14:07 Vomiting Review of Systems ROS Statement: Those systems with pertinent positive or pertinent negative responses have been documented in the HPI. ROS Other: All systems not noted in ROS Statement are negative. 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 History of Any Multi-Drug Resistant Organisms: None Reported Past Surgical History: Cholecystectomy, Tonsillectomy Additional Past Surgical History / Comment(s): 35 cysts removed in the past. States large cyst removed from armpit. Colonoscopy in the past. Past Anesthesia/Blood Transfusion Reactions: No Reported Reaction Past Psychological History: No Psychological Hx Reported Smoking Status: Current every day smoker Past Alcohol Use History: None Reported Past Drug Use History: None Reported - Past Family History Father Family Medical History: Cancer Additional Family Medical History / Comment(s): Stomach Mother Family Medical History: No Reported History General Exam Limitations: physical limitation General appearance: alert Head exam: Present: atraumatic, normocephalic, normal inspection Eye exam: Present: other (left sided facial droop - involves lower face) ENT exam: Present: normal exam, mucous membranes moist Neck exam: Present: normal inspection. Absent: tenderness, meningismus, lymphadenopathy Respiratory exam: Present: decreased breath sounds. Absent: accessory muscle use Cardiovascular Exam: Present: normal rhythm, tachycardia GI/Abdominal exam: Present: soft, normal bowel sounds. 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 no expressive aphasia. ataxia of the left hand. right leg has normal strength) Psychiatric exam: Present: normal affect, normal mood Skin exam: Present: warm, dry, intact, normal color. Absent: rash Course Vital Signs 02/19/22 02/19/22 02/19/22 08:49 08:50 09:00 Temperature 97.6 F 97.6 F 97.6 F Pulse Rate 116 H 117 H 117 H Pulse Rate [ Pulse Oximetery ] Respiratory 18 18 Rate Blood Pressure 91/68 86/47 84/56 Blood Pressure [Right Arm] O2 Sat by Pulse 91 L 94 L Oximetry 02/19/22 02/19/22 02/19/22 09:15 12:00 13:00 Temperature 97.7 F 98.6 F 97.9 F Pulse Rate 110 H Pulse Rate [ 110 H 106 H Pulse Oximetery ] Respiratory 18 20 18 Rate Blood Pressure 82/59 Blood Pressure 95/63 98/60 [Right Arm] O2 Sat by Pulse 94 L 95 95 Oximetry 02/19/22 02/19/22 02/19/22 13:10 14:00 15:00 Temperature 98.5 F 98.2 F Pulse Rate 98 110 H 108 H Pulse Rate [ 102 H 106 H Pulse Oximetery ] Respiratory 18 20 20 Rate Blood Pressure 94/55 90/60 92/65 Blood Pressure 100/65 110/63 [Right Arm] O2 Sat by Pulse 98 93 L 96 Oximetry 02/19/22 15:55 Temperature 97.6 F Pulse Rate 100 Pulse Rate [ Pulse Oximetery ] Respiratory 22 Rate Blood Pressure 104/68 Blood Pressure [Right Arm] O2 Sat by Pulse 96 Oximetry EKG Findings - EKG Comments: EKG Findings:: EKG demonstrates a sinus tachycardia with a rate of 111. AR interval of 172. QRS 119. QTC of 355. No acute ST segment elevations or depressions. Intraventricular conduction delay Medical Decision Making - Medical Decision Making NIH 8 with last known well of 3 am Upon arrival patient was placed into room 1. A thorough history and physical exam was performed. Patient has an NIH of 8. As the patient stated to me that he had symptoms right upon awaking, his last known well was placed at 3 AM. He arrives outside of the window for TPA. I did activate a code stroke and the patient did go for CT. I spoke with Dr. Livingston who reviewed the films. No acute CVA or ability to intervene via thrombectomy. Laboratory studies are reviewed. Patient has a white count of 21,000. Creatinine 1.5. Lactic acid 2.9. Troponin 0.080. Urinalysis is positive for nitrates and many bacteria. Chest x-ray demonstrates a questionable left lower lobe infiltrate. He is given 2 g of Rocephin and [address] is formally read by the radiologist as negative for any acute stroke. He is additionally given an aspirin. I spoke with Dr. Rod who will admit the patient for neurology and pulmonary consultation - Lab Data Result diagrams: 02/21/22 10:39 02/20/22 07:03 Lab Results 02/19/22 02/19/22 02/19/22 Range/Units 09:00 09:00 09:00 WBC 21.0 H (3.8-10.6) k/uL RBC 4.52 (4.30-5.90) m/uL Hgb 14.8 (13.0-17.5) gm/dL Hct 44.6 (39.0-53.0) % MCV 98.8 (80.0-100.0) fL MCH 32.8 (25.0-35.0) pg MCHC 33.2 (31.0-37.0) g/dL RDW 14.3 (11.5-15.5) % Plt Count 167 (150-450) k/uL MPV 9.4 Neutrophils % 84 % Lymphocytes % 8 % Monocytes % 5 % Eosinophils % 2 % Basophils % 0 % Neutrophils # 17.7 H (1.3-7.7) k/uL Lymphocytes # 1.6 (1.0-4.8) k/uL Monocytes # 1.0 (0-1.0) k/uL Eosinophils # 0.3 (0-0.7) k/uL Basophils # 0.1 (0-0.2) k/uL PT (9.0-12.0) sec INR (<1.2) APTT (22.0-30.0) sec Sodium 139 (137-145) mmol/L Potassium 4.9 (3.5-5.1) mmol/L Chloride 108 H (98-107) mmol/L Carbon Dioxide 17 L (22-30) mmol/L Anion Gap 14 mmol/L BUN 26 H (9-20) mg/dL Creatinine 1.54 H (0.66-1.25) mg/dL Est GFR (CKD-EPI)AfAm 50 (>60 ml/min/1.73 sqM) Est GFR (CKD-EPI)NonAf 43 (>60 ml/min/1.73 sqM) Glucose 279 H (74-99) mg/dL Lactic Ac Sepsis Rflx Plasma Lactic Acid Geo (0.7-2.0) mmol/L Calcium 9.2 (8.4-10.2) mg/dL Total Bilirubin 1.5 H (0.2-1.3) mg/dL AST 47 (17-59) U/L ALT 48 (4-49) U/L Alkaline Phosphatase 77 (38-126) U/L Troponin I 0.080 H* (0.000-0.034) ng/mL NT-Pro-B Natriuret Pep pg/mL Total Protein 7.6 (6.3-8.2) g/dL Albumin 4.4 (3.5-5.0) g/dL Urine Color Urine Appearance (Clear) Urine pH (5.0-8.0) Ur Specific [place] (1.001-1.035) Urine Protein (Negative) Urine Glucose (UA) (Negative) Urine Ketones (Negative) Urine Blood (Negative) Urine Nitrite (Negative) Urine Bilirubin (Negative) Urine Urobilinogen (<2.0) mg/dL Ur Leukocyte Esterase (Negative) Urine RBC (0-5) /hpf Urine WBC (0-5) /hpf Ur Squamous Epith Cells (0-4) /hpf Urine Bacteria (None) /hpf Urine Mucus (None) /hpf Coronavirus (PCR) (Not Detectd) Influenza Type A RNA (Not Detectd) Influenza Type B (PCR) (Not Detectd) 02/19/22 02/19/22 02/19/22 Range/Units 09:15 10:21 10:21 WBC (3.8-10.6) k/uL RBC (4.30-5.90) m/uL Hgb (13.0-17.5) gm/dL Hct (39.0-53.0) % MCV (80.0-100.0) fL MCH (25.0-35.0) pg MCHC (31.0-37.0) g/dL RDW (11.5-15.5) % Plt Count (150-450) k/uL MPV Neutrophils % % Lymphocytes % % Monocytes % % Eosinophils % % Basophils % % Neutrophils # (1.3-7.7) k/uL Lymphocytes # (1.0-4.8) k/uL Monocytes # (0-1.0) k/uL Eosinophils # (0-0.7) k/uL Basophils # (0-0.2) k/uL PT 10.9 (9.0-12.0) sec INR 1.0 (<1.2) APTT 21.7 L (22.0-30.0) sec Sodium (137-145) mmol/L Potassium (3.5-5.1) mmol/L Chloride (98-107) mmol/L Carbon Dioxide (22-30) mmol/L Anion Gap mmol/L BUN (9-20) mg/dL Creatinine (0.66-1.25) mg/dL Est GFR (CKD-EPI)AfAm (>60 ml/min/1.73 sqM) Est GFR (CKD-EPI)NonAf (>60 ml/min/1.73 sqM) Glucose (74-99) mg/dL Lactic Ac Sepsis Rflx Plasma Lactic Acid Geo 2.9 H* (0.7-2.0) mmol/L Calcium (8.4-10.2) mg/dL Total Bilirubin (0.2-1.3) mg/dL AST (17-59) U/L ALT (4-49) U/L Alkaline Phosphatase (38-126) U/L Troponin I (0.000-0.034) ng/mL NT-Pro-B Natriuret Pep 463 pg/mL Total Protein (6.3-8.2) g/dL Albumin (3.5-5.0) g/dL Urine Color Urine Appearance (Clear) Urine pH (5.0-8.0) Ur Specific [place] (1.001-1.035) Urine Protein (Negative) Urine Glucose (UA) (Negative) Urine Ketones (Negative) Urine Blood (Negative) Urine Nitrite (Negative) Urine Bilirubin (Negative) Urine Urobilinogen (<2.0) mg/dL Ur Leukocyte Esterase (Negative) Urine RBC (0-5) /hpf Urine WBC (0-5) /hpf Ur Squamous Epith Cells (0-4) /hpf Urine Bacteria (None) /hpf Urine Mucus (None) /hpf Coronavirus (PCR) (Not Detectd) Influenza Type A RNA (Not Detectd) Influenza Type B (PCR) (Not Detectd) 02/19/22 02/19/22 02/19/22 Range/Units 10:21 10:21 11:17 WBC (3.8-10.6) k/uL RBC (4.30-5.90) m/uL Hgb (13.0-17.5) gm/dL Hct (39.0-53.0) % MCV (80.0-100.0) fL MCH (25.0-35.0) pg MCHC (31.0-37.0) g/dL RDW (11.5-15.5) % Plt Count (150-450) k/uL MPV Neutrophils % % Lymphocytes % % Monocytes % % Eosinophils % % Basophils % % Neutrophils # (1.3-7.7) k/uL Lymphocytes # (1.0-4.8) k/uL Monocytes # (0-1.0) k/uL Eosinophils # (0-0.7) k/uL Basophils # (0-0.2) k/uL PT (9.0-12.0) sec INR (<1.2) APTT (22.0-30.0) sec Sodium (137-145) mmol/L Potassium (3.5-5.1) mmol/L Chloride (98-107) mmol/L Carbon Dioxide (22-30) mmol/L Anion Gap mmol/L BUN (9-20) mg/dL Creatinine (0.66-1.25) mg/dL Est GFR (CKD-EPI)AfAm (>60 ml/min/1.73 sqM) Est GFR (CKD-EPI)NonAf (>60 ml/min/1.73 sqM) Glucose (74-99) mg/dL Lactic Ac Sepsis Rflx Y Plasma Lactic Acid Geo (0.7-2.0) mmol/L Calcium (8.4-10.2) mg/dL Total Bilirubin (0.2-1.3) mg/dL AST (17-59) U/L ALT (4-49) U/L Alkaline Phosphatase (38-126) U/L Troponin I (0.000-0.034) ng/mL NT-Pro-B Natriuret Pep pg/mL Total Protein (6.3-8.2) g/dL Albumin (3.5-5.0) g/dL Urine Color Urine Appearance (Clear) Urine pH (5.0-8.0) Ur Specific [place] (1.001-1.035) Urine Protein (Negative) Urine Glucose (UA) (Negative) Urine Ketones (Negative) Urine Blood (Negative) Urine Nitrite (Negative) Urine Bilirubin (Negative) Urine Urobilinogen (<2.0) mg/dL Ur Leukocyte Esterase (Negative) Urine RBC (0-5) /hpf Urine WBC (0-5) /hpf Ur Squamous Epith Cells (0-4) /hpf Urine Bacteria (None) /hpf Urine Mucus (None) /hpf Coronavirus (PCR) Not Detected (Not Detectd) Influenza Type A RNA Not Detected (Not Detectd) Influenza Type B (PCR) Not Detected (Not Detectd) 02/19/22 Range/Units 12:47 WBC (3.8-10.6) k/uL RBC (4.30-5.90) m/uL Hgb (13.0-17.5) gm/dL Hct (39.0-53.0) % MCV (80.0-100.0) fL MCH (25.0-35.0) pg MCHC (31.0-37.0) g/dL RDW (11.5-15.5) % Plt Count (150-450) k/uL MPV Neutrophils % % Lymphocytes % % Monocytes % % Eosinophils % % Basophils % % Neutrophils # (1.3-7.7) k/uL Lymphocytes # (1.0-4.8) k/uL Monocytes # (0-1.0) k/uL Eosinophils # (0-0.7) k/uL Basophils # (0-0.2) k/uL PT (9.0-12.0) sec INR (<1.2) APTT (22.0-30.0) sec Sodium (137-145) mmol/L Potassium (3.5-5.1) mmol/L Chloride (98-107) mmol/L Carbon Dioxide (22-30) mmol/L Anion Gap mmol/L BUN (9-20) mg/dL Creatinine (0.66-1.25) mg/dL Est GFR (CKD-EPI)AfAm (>60 ml/min/1.73 sqM) Est GFR (CKD-EPI)NonAf (>60 ml/min/1.73 sqM) Glucose (74-99) mg/dL Lactic Ac Sepsis Rflx Plasma Lactic Acid Geo (0.7-2.0) mmol/L Calcium (8.4-10.2) mg/dL Total Bilirubin (0.2-1.3) mg/dL AST (17-59) U/L ALT (4-49) U/L Alkaline Phosphatase (38-126) U/L Troponin I (0.000-0.034) ng/mL NT-Pro-B Natriuret Pep pg/mL Total Protein (6.3-8.2) g/dL Albumin (3.5-5.0) g/dL Urine Color Light Yellow Urine Appearance Clear (Clear) Urine pH 5.0 (5.0-8.0) Ur Specific [place] 1.047 H (1.001-1.035) Urine Protein Trace H (Negative) Urine Glucose (UA) 4+ H (Negative) Urine Ketones Negative (Negative) Urine Blood Negative (Negative) Urine Nitrite Positive (Negative) Urine Bilirubin Negative (Negative) Urine Urobilinogen <2.0 (<2.0) mg/dL Ur Leukocyte Esterase Negative (Negative) Urine RBC 1 (0-5) /hpf Urine WBC 5 (0-5) /hpf Ur Squamous Epith Cells <1 (0-4) /hpf Urine Bacteria Many H (None) /hpf Urine Mucus Rare H (None) /hpf Coronavirus (PCR) (Not Detectd) Influenza Type A RNA (Not Detectd) Influenza Type B (PCR) (Not Detectd) Critical Care Time Critical Care Time: Yes Critical Care Time: 35 minutes Disposition Clinical Impression: Left arm weakness, Hypotension, Dysarthria, Hypoxia, CAP (community acquired pneumonia), UTI (urinary tract infection), CVA (cerebral vascular accident) Disposition: ADMITTED IP TO THIS [facility] Condition: Serious Is patient prescribed a controlled substance at d/c from ED?: No Time of Disposition: 14:14 Decision to Admit Reason: Admit from EC Decision Date: 02/19/22 Decision Time: 14:14
--- NOTE | 2022-02-19 10:39 | XR ---
EXAMINATION TYPE: XR chest 2V DATE OF EXAM: 02/19/2022 COMPARISON: 12/17/2020 TECHNIQUE: PA and lateral views submitted. HISTORY: Shortness of breath FINDINGS: The lungs are clear and there is no pneumothorax or pleural effusion. Hyperinflation. Elevated left hemidiaphragm with basilar consolidation. Coarsened interstitium stable. Degenerative and hypertroph ic change of the spine. IMPRESSION: 1. COPD correlate for left lower lobe infiltrate. 2. Correlate for chronic interstitial lung disease..
[2022-02-19] MEDS ORDERED: AZITHROMYCIN 500 MG in SODIUM CHLORIDE 0.9% 250 ML IVPB STA (11:49)
[2022-02-19] MEDS ORDERED: IPRATROPIUM-ALBUTEROL 3 ML NEB INHALATION PRN (11:49)
[2022-02-19] MEDS ORDERED: PNEUMONIA PROTOCOL UTILIZED 1 EACH MISC PO PRN (11:49)
[2022-02-19 12:59] LABS: Appearance,Urine Clear (Clear); Bacteria,Urine Many /hpf; Bilirubin,Urine Negative (Negative); Blood,Urine Negative (Negative); Color,Urine Light Yellow; Glucose,Urine (UA) 4+ (Negative); Ketones,Urine Negative (Negative); Leukocyte Esterase,Urine Negative (Negative); Mucus,Urine Rare /hpf; Nitrite,Urine Positive (Negative); Protein,Urine Trace (Negative); RBC,Urine 1 /hpf (0-5); Squamous Epithelial Cell,Urine <1 /hpf (0-4); Urobilinogen,Urine <2.0 mg/dL (<2.0); WBC,Urine 5 /hpf (0-5)
[2022-02-19 13:01] LABS: Specific Gravity,Urine 1.047 (1.001-1.035)
[2022-02-19] MEDS ORDERED: oxyCODONE-APAP 5-325MG 1 EACH TAB PO PRN (14:11)
[2022-02-19] MEDS ORDERED: ACETAMINOPHEN TAB 325 MG TAB PO PRN (14:11)
[2022-02-19] MEDS ORDERED: NALOXONE 0.4 MG/ML 1 ML VIAL IV PRN (14:15)
[2022-02-19] MEDS ORDERED: SODIUM CHLORIDE 0.9% 1,000 ML IV SCH (14:15)
[2022-02-19] MEDS ORDERED: ASPIRIN 325 MG TAB PO STA (14:17)
[2022-02-19] MEDS ORDERED: TICAGRELOR 90 MG TAB PO STA (14:59)
--- NOTE | 2022-02-19 15:10 | P.HPIM ---
History of Present Illness H&P Date: 02/19/22 Chief Complaint: left sided weakness 76-year-old man with a history of CAD status post PCI with 2 stents, ischemic cardiomyopathy with ejection fraction of 35%, hypertension, hyperlipidemia, diabetes, COPD, active smoker presented with left-sided weakness. Patient says that this morning at 7 AM he noticed that he had left arm weakness, but no gait instability. He went down his stairs to get breakfast, but his symptoms did not improve. Shortly thereafter, his noticed that he had slurred speech as well as left-sided facial droop. Due to concern over the symptoms he presented to the emergency room for further evaluation. Patient denies fevers, chills, nausea, vomiting, chest pain, palpitations, syncope, presyncope, abdominal pain, constipation, diarrhea, dysuria, dyschezia, numbness of extremities. Patient does report that he's had increasing cough and sputum production over the last 2 days. He further denies sweats, shakes. In the emergency room, patient was afebrile, 91/68, heart rate 116, 85% on room air, improved to 94% on 4 L nasal cannula. CBC was remarkable for leukocytosis at 21. Chemistries are remarkable for a chloride of 108, CO2 of 17, BUN of 26, creatinine of 1.5. Liver function tests showed bilirubin of 1.5. Initial troponin is 0.08. BNP was 463. Lactic acid was 2.9. UA showed trace protein, 4+ glucose, positive nitrite, many bacteria. Covid was negative. Influenza A, B were negative. Coags were unremarkable. CT of the brain shows a hypodense area within the right gannon radiata. CT angiography of the head and neck showed no significant diameter reduction. Chest x-ray shows COPD as well as left lower lobe infiltrate, chronic interstitial lung disease. He shows sinus tachycardia with left axis deviation, no evidence of ischemia. Patient received 2 L of fluid bolus, dose of ceftriaxone, azithromycin. Patient was admitted to medicine for further evaluation, neurology was consulted. All Systems reviewed and pertinent positives and negatives noted in HPI, all other symptoms are negative Gen: in no apparent distress, resting comfortably in bed Eyes: PERRL, no scleral injection or icterus HENT: normocephalic, atraumatic, good hearing acuity, moist mucous membranes Neck: no tracheal deviation, full range of motion Resp: Impaired air exchange, breathing comfortably with no accessory muscle use, no tactile fremitus, diffuse wheezing, diminished breath sounds CVS: good distal perfusion x 4, 1+ pitting edema, tachycardic, no appreciable murmurs GI: soft, NTTP, ND, no hepatosplenomegaly : no suprapubic tenderness, no CVAT, cordero catheter not present MSK: no clubbing, no cyanosis, no noted contractures of extremities Skin: no noted rashes, petechiae; temperature of skin is appropriate Neuro: Left upper extremity 4 out of 5 hand ladler, 4 out of 5 motor strength at the elbow and shoulder on both flexion and extension, left-sided facial droop, tongue deviation to the left, symmetric uvula Psych: cooperative, euthymic mood, insight and judgment intact Labs and imaging as above Assessment/plan: Sepsis with acute hypoxemic respiratory failure Community acquired versus Aspiration pneumonia Complicated urinary tract infection -Admit to inpatient, telemetry -Ceftriaxone, azithromycin -DuoNeb's -Sputum culture, blood culture -Urine culture -Oxygen as needed -Procalcitonin, pending Acute stroke -Neurology consult -Aspirin, brillinta, statin -TSH, A1c, lipid panel -MRI of the brain, pending -Echocardiogram, pending -PT, OT, ST consult -Neurochecks CAD Chronic systolic heart failure, ejection fraction 35% Ischemic cardiomyopathy Hypertension Hyperlipidemia Diabetes type 2 COPD without exacerbation Nicotine abuse -Home medications reviewed and reconciled, changes noted above -Continue nebulizers -Low-dose sliding scale insulin -Nicotine cessation counseling provided, NRT upon request Patient is DO NOT RESUSCITATE/DO NOT INTUBATE DVT prophylaxis covered with heparin 3 times a day 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 History of Any Multi-Drug Resistant Organisms: None Reported Past Surgical History: Cholecystectomy, Tonsillectomy Additional Past Surgical History / Comment(s): 35 cysts removed in the past. States large cyst removed from armpit. Colonoscopy in the past. Past Anesthesia/Blood Transfusion Reactions: No Reported Reaction Past Psychological History: No Psychological Hx Reported Smoking Status: Current every day smoker Past Alcohol Use History: None Reported Past Drug Use History: None Reported - Past Family History Father Family Medical History: Cancer Additional Family Medical History / Comment(s): Stomach Mother Family Medical History: No Reported History Medications and Allergies Home Medications Medication Instructions Recorded Confirmed Type Empagliflozin [Jardiance] 25 mg PO DAILY 10/19/16 02/19/22 History Latanoprost Ophth [Xalatan 0.005%] 1 drop BOTH EYES HS 10/19/16 02/19/22 History Alogliptin Benzoate [Alogliptin] 25 mg PO DAILY 12/18/20 02/19/22 History Ascorbic Acid [Vitamin C] 500 mg PO DAILY 12/18/20 02/19/22 History Brimonidine Tartrate [Alphagan P 1 drops BOTH EYES BID 12/18/20 02/19/22 History 0.2% Ophth Soln] Cholecalciferol [Vitamin D3 (10 20 mcg PO DAILY 12/18/20 02/19/22 History Mcg = 400 Iu)] Cinnamon Bark [Cinnamon] 1,000 mg PO BID 12/18/20 02/19/22 History Multivitamins, Thera [Multivitamin 1 tab PO DAILY 12/18/20 02/19/22 History (formulary)] Spironolactone [Aldactone] 25 mg PO DAILY 30 Days #30 tab 12/20/20 02/19/22 Rx Atorvastatin Calcium [Lipitor] 40 mg PO HS 02/19/22 02/19/22 History Clopidogrel [Plavix] 75 mg PO DAILY 02/19/22 02/19/22 History Fluticasone Propion/Salmeterol 1 puff INHALATION RT-BID 02/19/22 02/19/22 H istory [Fluticasone-Salmeterol 250-50] Losartan [Cozaar] 25 mg PO DAILY 02/19/22 02/19/22 History Metoprolol Tartrate [Lopressor] 12.5 mg PO BID 02/19/22 02/19/22 History hydroCHLOROthiazide 25 mg PO DAILY 02/19/22 02/19/22 History metFORMIN HCL ER [Glucophage XR] 500 mg PO BID 02/19/22 02/19/22 History rOPINIRole HCL [Requip] 1 mg PO HS 02/19/22 02/19/22 History Allergies Allergy/AdvReac Type Severity Reaction Status Date / Time oxycodone [From OxyContin] AdvReac Nausea & Verified 02/19/22 14:07 Vomiting Physical Exam Osteopathic Statement: *. No significant issues noted on an osteopathic stru ctural exam other than those noted in the History and Physical/Consult. Vitals: Vital Signs Temp Pulse Resp BP Pulse Ox 02/19/22 13:10 98 18 94/55 98 02/19/22 09:15 97.7 F 110 H 18 82/59 94 L 02/19/22 09:00 97.6 F 117 H 18 84/56 94 L 02/19/22 08:50 97.6 F 117 H 18 86/47 91 L 02/19/22 08:49 97.6 F 116 H 91/68 Intake and Output 02/18/22 02/19/22 02/19/22 22:59 06:59 14:59 Other: Weight 89.176 kg Results CBC & Chem 7: 02/19/22 09:00 02/19/22 09:00 Labs: Abnormal Lab Results - Last 24 Hours (Table) 02/19/22 02/19/22 02/19/22 Range/Units 09:00 09:00 09:00 WBC 21.0 H (3.8-10.6) k/uL Neutrophils # 17.7 H (1.3-7.7) k/uL APTT (22.0-30.0) sec Chloride 108 H (98-107) mmol/L Carbon Dioxide 17 L (22-30) mmol/L BUN 26 H (9-20) mg/dL Creatinine 1.54 H (0.66-1.25) mg/dL Glucose 279 H (74-99) mg/dL Plasma Lactic Acid Geo (0.7-2.0) mmol/L Total Bilirubin 1.5 H (0.2-1.3) mg/dL Troponin I 0.080 H* (0.000-0.034) ng/mL Ur Specific [place] (1.001-1.035) Urine Protein (Negative) Urine Glucose (UA) (Negative) Urine Bacteria (None) /hpf Urine Mucus (None) /hpf 02/19/22 02/19/22 02/19/22 Range/Units 09:15 10:21 12:47 WBC (3.8-10.6) k/uL Neutrophils # (1.3-7.7) k/uL APTT 21.7 L (22.0-30.0) sec Chloride (98-107) mmol/L Carbon Dioxide (22-30) mmol/L BUN (9-20) mg/dL Creatinine (0.66-1.25) mg/dL Glucose (74-99) mg/dL Plasma Lactic Acid Geo 2.9 H* (0.7-2.0) mmol/L Total Bilirubin (0.2-1.3) mg/dL Troponin I (0.000-0.034) ng/mL Ur Specific [place] 1.047 H (1.001-1.035) Urine Protein Trace H (Negative) Urine Glucose (UA) 4+ H (Negative) Urine Bacteria Many H (None) /hpf Urine Mucus Rare H (None) /hpf
--- NOTE | 2022-02-19 15:18 | P.CNNES ---
History of Present Illness Consult date: 02/19/22 Requesting physician: Rosa Hernandez Reason for Consult: acute left sided weakness History of Present Illness: This is a 76-year-old gentleman who presented emergency department because of sudden onset of the left-sided weakness including face. He presented to our emergency department at 8:47 AM today Patient notified the ED nurse that his last normal was 3 AM today and then he won't back to sleep and woke up at 6:45 AM today with left-sided weakness and facial droop. But he notified later that he woke up around 6:45 AM and was doing well then he went downstairs and within 5 minutes he had a sudden left side was weak as well as a was slurring on the left side and drooling on the left side. He felt he was slurring his words He denies any history of stroke. Denies of any numbness any tingling, visual disturbance. Patient stated that he is on antiplatelet but could not tell me the name but according the EMR he is on Plavix 75 mg daily it does not seem he is on aspirin. Patient denies being on anticoagulation he denies any history of atrial fibrillation or the flutter. Patient stated that he does smoke cigarettes. Denies of any illicit drug use. Some other workup during this hospital visit consisted of: His initial vitals his blood pressure of 91/68, heart rate of 116, temperature of 97.6 oral pulse ox of 85% on 4 L of the nasal cannula then his systolic blood pressures in the 80s over 40s. Creatinine is 1.54 and troponins 0.08. White blood cells 21,000 and predominantly neutrophilic Urine analysis is the urine bacteria is many [place]ac[place] virus not detected. Influenza A/B is not detected. CT of the head is reported as no acute intracranial processes. Nonspecific white matter changes including right palacios radiata hypodensity was slightly asymmetric, likely secondary to chronic small vessel ischemic disease consider further nausea with MRI. CT angiography of the head and neck was reported as no significant abnormality. EKG is reported as sinus tachycardia. Left axis deviation. Inferior myocardial infarction probably old. Anteroseptal myocardial infarction. According to the ED attending patient is outside the window therefore patient did not get TPA and the risks outweigh the benefit. Since the patient notified the ED team his last normal state was at 3:00 in the morning. Review of Systems Review of system: The 12 point system was reviewed and apparent positive and negative per HPI. 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 History of Any Multi-Drug Resistant Organisms: None Reported Past Surgical History: Cholecystectomy, Tonsillectomy Additional Past Surgical History / Comment(s): 35 cysts removed in the past. States large cyst removed from armpit. Colonoscopy in the past. Past Anesthesia/Blood Transfusion Reactions: No Reported Reaction Past Psychological History: No Psychological Hx Reported Smoking Status: Current every day smoker Past Alcohol Use History: None Reported Past Drug Use History: None Reported - Past Family History Father Family Medical History: Cancer Additional Family Medical History / Comment(s): Stomach Mother Family Medical History: No Reported History Medications and Allergies Home Medications Medication Instructions Recorded Confirmed Type Empagliflozin [Jardiance] 25 mg PO DAILY 10/19/16 02/19/22 History Latanoprost Ophth [Xalatan 0.005%] 1 drop BOTH EYES HS 10/19/16 02/19/22 History Alogliptin Benzoate [Alogliptin] 25 mg PO DAILY 12/18/20 02/19/22 History Ascorbic Acid [Vitamin C] 500 mg PO DAILY 12/18/20 02/19/22 History Brimonidine Tartrate [Alphagan P 1 drops BOTH EYES BID 12/18/20 02/19/22 History 0.2% Ophth Soln] Cholecalciferol [Vitamin D3 (10 20 mcg PO DAILY 12/18/20 02/19/22 History Mcg = 400 Iu)] Cinnamon Bark [Cinnamon] 1,000 mg PO BID 12/18/20 02/19/22 History Multivitamins, Thera [Multivitamin 1 tab PO DAILY 12/18/20 02/19/22 History (formulary)] Spironolactone [Aldactone] 25 mg PO DAILY 30 Days #30 tab 12/20/20 02/19/22 Rx Atorvastatin Calcium [Lipitor] 40 mg PO HS 02/19/22 02/19/22 History Clopidogrel [Plavix] 75 mg PO DAILY 02/19/22 02/19/22 History Fluticasone Propion/Salmeterol 1 puff INHALATION RT-BID 02/19/22 02/19/22 History [Fluticasone-Salmeterol 250-50] Losartan [Cozaar] 25 mg PO DAILY 02/19/22 02/19/22 History Metoprolol Tartrate [Lopressor] 12.5 mg PO BID 02/19/22 02/19/22 History hydroCHLOROthiazide 25 mg PO DAILY 02/19/22 02/19/22 History metFORMIN HCL ER [Glucophage XR] 500 mg PO BID 02/19/22 02/19/22 History rOPINIRole HCL [Requip] 1 mg PO HS 02/19/22 02/19/22 History Allergies Allergy/AdvReac Type Severity Reaction Status Date / Time oxycodone [From OxyContin] AdvReac Nausea & Verified 02/19/22 14:07 Vomiting Physical Examination - Vital Signs Vital Signs: Vital Signs Temp Pulse Resp BP Pulse Ox 02/19/22 13:10 98 18 94/55 98 02/19/22 09:15 97.7 F 110 H 18 82/59 94 L 02/19/22 09:00 97.6 F 117 H 18 84/56 94 L 02/19/22 08:50 97.6 F 117 H 18 86/47 91 L 02/19/22 08:49 97.6 F 116 H 91/68 Intake and Output 02/19/22 02/19/22 02/19/22 06:59 14:59 22:59 Other: Weight 89.176 kg GENERAL: The patient is lying in bed and is not in acute distress. CHEST: The heart rate is regular rate rhythm. No murmurs to auscultation. LUNG: Clear to auscultation bilaterally no wheezing noted throughout. Not labored breathing. ABDOMEN/GI: Bowel sounds present in all 4 quadrants. No tenderness to palpation throughout. NEUROLOGICAL: Higher mental function: The patient is awake, alert, oriented to self, place and time. Patient is following commands. No aphasia and no neglect. Cranial nerves: The pupils are round, equal and reactive to light and accommodation. Visual harris are full to confrontation throughout. Extraocular movement is intact no nystagmus is noted. Facial sensation is normal to touch throughout. The facial strength is moderate to severe left lower weakness. Hearing is normal bilaterally to hand rub. Tongue is midline and moved [id number] without any difficulty. Mild to Moderate dysarthria is noted. Shoulder shrug is normal bilaterally. Motor: The strength is left upper and lower extremity is 4-4+. Otherwise 5 over 5 throughout. Normal tone and bulk. Cerebellum: Normal finger to nose bilaterally. Sensation: Sensation is normal to touch throughout. Reflexes (right/left): 1+ Plantars are mute bilaterally. Results - Laboratory Findings CBC and BMP: 02/19/22 09:00 02/19/22 09:00 Abnormal Lab Findings: Abnormal Labs 02/19/22 02/19/22 02/19/22 09:00 09:00 09:00 WBC 21.0 H Neutrophils # 17.7 H APTT Chloride 108 H Carbon Dioxide 17 L BUN 26 H Creatinine 1.54 H Glucose 279 H Plasma Lactic Acid Geo Total Bilirubin 1.5 H Troponin I 0.080 H* Ur Specific [place] Urine Protein Urine Glucose (UA) Urine Bacteria Urine Mucus 02/19/22 02/19/22 02/19/22 09:15 10:21 12:47 WBC Neutrophils # APTT 21.7 L Chloride Carbon Dioxide BUN Creatinine Glucose Plasma Lactic Acid Geo 2.9 H* Total Bilirubin Troponin I Ur Specific [place] 1.047 H Urine Protein Trace H Urine Glucose (UA) 4+ H Urine Bacteria Many H Urine Mucus Rare H Assessment and Plan Assessment: Acute ischemic stroke (left sided weakness and facial with dysarthria). Hypotensive episode with the leukocytosis with elevated lactic acid seems due to underlying sepsis Diabetes mellitus Hypertension Hyperlipidemia History of melanoma and basal cell or [place] Tobacco use Plan: In the ED the patient was given aspirin 325 once the primary start the patient on 81 mg aspirin daily. He failed Lasix therefore I started the patient on Brilinta 180mg once then 90mg bid. Started on Lipitor 40 mg daily at bedtime for secondary stroke prophylaxis MRI, 2-D echo, lipid panel, hemoglobin A1c, TSH is ordered by the ED team is pending Continue neuro checks Cardiac monitoring PT OT and DIRECTOR ONLINE MARKETING are consulted Please avoids any hypotensive episode and recommended the sock blood pressure between 140-160. Patient was counseled on tobacco cessation We'll defer the rest of the medical management to primary team For DVT prophylaxis the patient is on subcu heparin 5000 units every 8 hours The plan was discussed with the patient as well as in the ED team. Time with Patient: Greater than 30
[2022-02-19] MEDS ORDERED: ASPIRIN 300 MG SUPP RECTAL STA (16:26)
[2022-02-19 16:47] LABS: Glucose,Whole Blood 159 mg/dL (70-110)
[2022-02-19] MEDS: INSULIN ASPART (NovoLOG) 100 UNIT/ML VIAL SQ SCH (16:47)
[2022-02-19] MEDS: HEPARIN SODIUM,PORCINE/PF 5,000 UNIT/0.5 ML SYRINGE SQ SCH (18:07)
[2022-02-19] MEDS: METOPROLOL TARTRATE 12.5 MG TAB PO SCH (20:00)
[2022-02-19] MEDS: ATORVASTATIN 40 MG TAB PO SCH (20:00)
[2022-02-19] MEDS: TICAGRELOR 90 MG TAB PO SCH (20:01)
[2022-02-19 20:06] LABS: Glucose,Whole Blood 148 mg/dL (70-110)
[2022-02-19] MEDS: LATANOPROST 0.005% OPHTH DROPS 2.5 ML BTL BOTH EYES SCH (20:48)
[2022-02-19] MEDS: BRIMONIDINE TARTRATE 0.2% DROPS 5 ML BTL BOTH EYES SCH (20:48)
[2022-02-19] MEDS: SYMBICORT 80-4.5 MCG INHALER INHALATION SCH (20:52)
[2022-02-20] MEDS: HEPARIN SODIUM,PORCINE/PF 5,000 UNIT/0.5 ML SYRINGE SQ SCH ×4 (00:05→20:28)
[2022-02-20 06:05] LABS: Glucose,Whole Blood 157 mg/dL (70-110)
[2022-02-20] MEDS: INSULIN ASPART (NovoLOG) 100 UNIT/ML VIAL SQ SCH ×3 (06:23→17:20)
[2022-02-20 07:42] LABS: Basophils # (A) 0.1 k/uL (0-0.2); Basophils % (A) 0 %; Eosinophils # (A) 0.1 k/uL (0-0.7); Eosinophils % (A) 1 %; HCT 43.3 % (39.0-53.0); HGB 14.1 gm/dL (13.0-17.5); Hypochromasia Slight; Lymphocytes # (A) 1.5 k/uL (1.0-4.8); Lymphocytes % (A) 11 %; MCH 32.2 pg (25.0-35.0); MCHC 32.5 g/dL (31.0-37.0); Mean Platelet Volume 9.5; Monocytes # (A) 0.7 k/uL (0-1.0); Monocytes % (A) 5 %; Neutrophils # (A) 10.7 k/uL (1.3-7.7); Neutrophils % (A) 80 %; Platelet Count 149 k/uL (150-450); RBC 4.37 m/uL (4.30-5.90); RDW 14.4 % (11.5-15.5); WBC 13.4 k/uL (3.8-10.6)
[2022-02-20] MEDS: SYMBICORT 80-4.5 MCG INHALER INHALATION SCH ×2 (07:42→19:52)
[2022-02-20 07:57] LABS: Albumin 4.4 g/dL (3.5-5.0); Magnesium 1.9 mg/dL (1.6-2.3); Potassium 4.4 mmol/L (3.5-5.1); Total Protein 7.5 g/dL (6.3-8.2)
[2022-02-20 08:15] LABS: Prothrombin Time 10.9 sec (9.0-12.0)
[2022-02-20] MEDS: ASCORBIC ACID 500 MG TAB PO SCH (08:41)
[2022-02-20] MEDS: MULTIVITAMINS, THERA 1 EACH TAB PO SCH (08:42)
[2022-02-20] MEDS: METOPROLOL TARTRATE 12.5 MG TAB PO SCH ×2 (08:42→20:25)
[2022-02-20] MEDS: CHOLECALCIFEROL 10 MCG (400 IU) TABLET PO SCH (08:42)
[2022-02-20] MEDS: TICAGRELOR 90 MG TAB PO SCH (08:42)
[2022-02-20] MEDS ORDERED: AZITHROMYCIN 500 MG in SODIUM CHLORIDE 0.9% 250 ML IVPB SCH (09:00)
[2022-02-20] MEDS ORDERED: ASPIRIN 81 MG PO SCH (09:00)
[2022-02-20] MEDS ORDERED: CLOPIDOGREL 75 MG TAB PO SCH (09:00)
--- NOTE | 2022-02-20 09:09 | XR ---
EXAMINATION TYPE: XR chest 2V DATE OF EXAM: 02/20/2022 COMPARISON: 02/19/2022 TECHNIQUE: PA and lateral views submitted. HISTORY: Cough FINDINGS: The lungs are clear and there is no pleural effusion or pneumothorax. Improving left basilar density . Heart size normal. There is hyperinflation. No overt failure. Degenerative change of the spine. Ath erosclerotic change aorta. IMPRESSION: 1. COPD correlate for chronic interstitial lung disease. 2. Improving left lower lobe infiltrate.
[2022-02-20] MEDS: BRIMONIDINE TARTRATE 0.2% DROPS 5 ML BTL BOTH EYES SCH ×2 (09:12→20:25)
--- NOTE | 2022-02-20 09:59 | P.PN ---
Subjective Progress Note Date: 02/20/22 Pt is doing better today. WBC is downtrending. MRI pending. ST pending. Gen: in no apparent distress, resting comfortably in bed Eyes: PERRL, no scleral injection or icterus HENT: normocephalic, atraumatic, good hearing acuity, moist mucous membranes Neck: no tracheal deviation, full range of motion Resp: Impaired air exchange, breathing comfortably with no accessory muscle use, no tactile fremitus, diffuse wheezing, diminished breath sounds CVS: good distal perfusion x 4, 1+ pitting edema, tachycardic, no appreciable murmurs GI: soft, NTTP, ND, no hepatosplenomegaly : no suprapubic tenderness, no CVAT, cordero catheter not present MSK: no clubbing, no cyanosis, no noted contractures of extremities Skin: no noted rashes, petechiae; temperature of skin is appropriate Neuro: 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, 4 out of 5 motor strength at the elbow and shoulder on both flexion and extension, left-sided facial droop, tongue deviation to the left, symmetric uvula Psych: cooperative, euthymic mood, insight and judgment intact Assessment/plan: Sepsis with acute hypoxemic respiratory failure Community acquired versus Aspiration pneumonia Complicated urinary tract infection -Admit to inpatient, telemetry -Ceftriaxone, azithromycin -DuoNeb's -Sputum culture, blood culture -Urine culture -Oxygen as needed -Procalcitonin, pending Acute stroke -Neurology consult -Aspirin, brillinta, statin -TSH, A1c, lipid panel -MRI of the brain, pending -Echocardiogram, pending -PT, OT, ST consult -Neurochecks CAD Chronic systolic heart failure, ejection fraction 35% Ischemic cardiomyopathy Hypertension Hyperlipidemia Diabetes type 2 COPD without exacerbation Nicotine abuse -Home medications reviewed and reconciled, changes noted above -Continue nebulizers -Low-dose sliding scale insulin -Nicotine cessation counseling provided, NRT upon request Patient is DO NOT RESUSCITATE/DO NOT INTUBATE DVT prophylaxis covered with heparin 3 times a day Objective - Vital Signs Vital signs: Vital Signs Temp 98.4 F 02/20/22 04:00 Pulse 80 02/20/22 04:00 Resp 16 02/20/22 04:00 BP 100/61 02/20/22 04:00 Pulse Ox 96 02/20/22 04:00 FiO2 Intake & Output 02/19/22 02/20/22 02/20/22 18:59 06:59 18:59 Weight 89.176 kg Other: Voiding Method Toilet Urinal # Voids 1 - Labs CBC & Chem 7: 02/20/22 07:03 02/20/22 07:03 Labs: Abnormal Lab Results - Last 24 Hours (Table) 02/19/22 02/19/22 02/19/22 Range/Units 10:21 12:47 14:44 WBC (3.8-10.6) k/uL Plt Count (150-450) k/uL Neutrophils # (1.3-7.7) k/uL Chloride (98-107) mmol/L Carbon Dioxide (22-30) mmol/L BUN (9-20) mg/dL Glucose (74-99) mg/dL POC Glucose (mg/dL) (70-110) mg/dL Plasma Lactic Acid Geo 2.9 H* 2.2 H* (0.7-2.0) mmol/L Procalcitonin (0.02-0.09) ng/mL Ur Specific [place] 1.047 H (1.001-1.035) Urine Protein Trace H (Negative) Urine Glucose (UA) 4+ H (Negative) Urine Bacteria Many H (None) /hpf Urine Mucus Rare H (None) /hpf 02/19/22 02/19/22 02/19/22 Range/Units 15:34 16:28 20:05 WBC (3.8-10.6) k/uL Plt Count (150-450) k/uL Neutrophils # (1.3-7.7) k/uL Chloride (98-107) mmol/L Carbon Dioxide (22-30) mmol/L BUN (9-20) mg/dL Glucose (74-99) mg/dL POC Glucose (mg/dL) 159 H 148 H (70-110) mg/dL Plasma Lactic Acid Geo (0.7-2.0) mmol/L Procalcitonin 0.12 H (0.02-0.09) ng/mL Ur Specific [place] (1.001-1.035) Urine Protein (Negative) Urine Glucose (UA) (Negative) Urine Bacteria (None) /hpf Urine Mucus (None) /hpf 02/20/22 02/20/22 02/20/22 Range/Units 06:03 07:03 07:03 WBC 13.4 H (3.8-10.6) k/uL Plt Count 149 L (150-450) k/uL Neutrophils # 10.7 H (1.3-7.7) k/uL Chloride 114 H (98-107) mmol/L Carbon Dioxide 15 L (22-30) mmol/L BUN 21 H (9-20) mg/dL Glucose 161 H (74-99) mg/dL POC Glucose (mg/dL) 157 H (70-110) mg/dL Plasma Lactic Acid Geo (0.7-2.0) mmol/L Procalcitonin (0.02-0.09) ng/mL Ur Specific [place] (1.001-1.035) Urine Protein (Negative) Urine Glucose (UA) (Negative) Urine Bacteria (None) /hpf Urine Mucus (None) /hpf
[2022-02-20] MEDS ORDERED: HEPARIN SODIUM 1,000 UN/ML (10ML VL) IV PRN (10:07)
[2022-02-20] MEDS ORDERED: HEPARIN SODIUM 1,000 UN/ML (10ML VL) IV ONE (10:07)
--- NOTE | 2022-02-20 10:08 | CA ---
Transthoracic Echo Report Name: Osiel Fernandez Age: 76 Gender: M : 1945 Exam Date: 02/20/2022 08:40 Exam Location: [facility] Ht (in): 64 Wt (lb): 196 Ordering Physician: Phil Rod MD Attending/Referring Phys: Television Cameraman Sandra Martin RDCS Procedure CPT: Indications: CVA Cardiac Hx: Technical Quality: Fair Contrast 1: N/A Total Dose (mL): Contrast 2: Total Dose (mL): MEASUREMENTS (Male / Female) Normal Values 2D ECHO LV Diastolic Diameter PLAX 4.0 cm 4.2 - 5.9 / 3.9 - 5.3 cm LV Systolic Diameter PLAX 3.4 cm IVS Diastolic Thickness 1.1 cm 0.6 - 1.0 / 0.6 - 0.9 cm LVPW Diastolic Thickness 1.0 cm 0.6 - 1.0 / 0.6 - 0.9 cm LV Relative Wall Thickness 0.5 RV Internal Dim ED PLAX 4.9 cm M-MODE Aortic Root Diameter MM 3.9 cm LA Systolic Diameter MM 3.1 cm LA Ao Ratio MM 0.8 MV E Point Septal Separation 1.3 cm AV Cusp Separation MM 1.8 cm DOPPLER TR Peak Velocity 264.7 cm/s TR Peak Gradient 28.0 mmHg FINDINGS Left Ventricle Left ventricular ejection fraction is estimated at 35-40%. Right Ventricle Severe right ventricular dilatation. Moderate right ventricular hypokinesis. Right ventricular systolic pressure within normal limits. Right Atrium Mild right atrial dilatation. Large mobile echogenic structure seen in the right atrium extending to the level of the tricuspid valve concerning for vegetation vs thrombus. No evidence of extension into IVC as can be seen in renal cell cancer. Consider VINNIE to further evaluate if clinically indicated. Left Atrium Normal left atrial size. Mitral Valve Structurally normal mitral valve. Mild mitral regurgitation. Aortic Valve Trileaflet aortic valve. Aortic valve sclerosis. Tricuspid Valve Structurally normal tricuspid valve. Pulmonic Valve Pulmonic valve not well visualized. Pericardium Normal pericardium. Aorta Normal size aortic root and proximal ascending aorta. CONCLUSIONS Left ventricular ejection fraction 35-40% Severe right ventricular dilation RVSP 28 however may be underestimated secondary to RV dilation and hypokinesis Large mobile echogenic structure seen in the right atrium extending to the level of the tricuspid valve concerning for vegetation vs thrombus. No evidence of extension into IVC as can be seen in renal cell cancer. Consider VINNIE to further evaluate if clinically indicated. Mild mitral regurgitation No pericardial effusion Previewed by: Dr. Goyo Mcarthur DO (Electronically Signed) Final Date: 20 February 2022 10:07
[2022-02-20 10:38] LABS: Partial Thromboplastin Time 24.7 sec (22.0-30.0)
--- NOTE | 2022-02-20 11:40 | P.PN ---
Subjective Progress Note Date: 02/20/22 The patient is seen at bedside and continues to have deficits on the left (face, upper, slurring of speech). He had a echo and showed a large mobile echogenic structure seen in the right atrium extending to the level of tricuspid valve concerning for vegetation versus thrombus. Patient does not have any fevers so far during his hospital visit. Objective - Vital Signs Vital signs: Vital Signs Temp 98.4 F 02/20/22 04:00 Pulse 93 02/20/22 08:00 Resp 16 02/20/22 08:00 BP 115/71 02/20/22 08:00 Pulse Ox 92 L 02/20/22 08:00 FiO2 Intake & Output 02/19/22 02/20/22 02/20/22 18:59 06:59 18:59 Intake Total 300 Balance 300 Weight 89.176 kg Intake: Intake, IV Titration 300 Amount Azithromycin 500 mg In 250 Sodium Chloride 0.9% 250 ml @ 250 mls/hr IVPB DAILY [facility] Rx#:[id number] cefTRIAXone 1 gm In 50 Sodium Chloride 0.9% 50 ml @ 100 mls/hr IVPB DAILY [facility] Rx#:[id number] Other: Voiding Method Toilet Toilet Urinal Urinal # Voids 1 - Exam GENERAL: The patient is lying in bed and is not in acute distress. NEUROLOGICAL: Higher mental function: The patient is awake, alert, oriented to self, place and time. Patient is following commands. No aphasia and no neglect. Cranial nerves: The pupils are round, equal and reactive to light and accomm odation. Visual harris are full to confrontation throughout. Extraocular movement is intact no nystagmus is noted. Facial sensation is normal to touch throughout. The facial strength is moderate to severe left lower weakness. Hearing is normal bilaterally to hand rub. Tongue is midline and moved [id number] without any difficulty. Mild to Moderate dysarthria is noted. Shoulder shrug is normal bilaterally. Motor: The strength is left upper and lower extremity is 4-4+. Otherwise 5 over 5 throughout. Normal tone and bulk. Cerebellum: Normal finger to nose bilaterally. Sensation: Sensation is normal to touch throughout. Reflexes (right/left): 1+ Plantars are mute bilaterally. Some other workup during this hospital visit consisted of: His initial vitals his blood pressure of 91/68, heart rate of 116, temperature of 97.6 oral pulse ox of 85% on 4 L of the nasal cannula then his systolic blood pressures in the 80s over 40s. Creatinine is 1.54 and troponins 0.08. White blood cells 21,000 and predominantly neutrophilic Urine analysis is the urine bacteria is many [place] virus not detected. Influenza A/B is not detected. CT of the head is reported as no acute intracranial processes. Nonspecific white matter changes including right [place] radiata hypodensity was slightly asymmetric, likely secondary to chronic small vessel ischemic disease consider further nausea with MRI. CT angiography of the head and neck was reported as no significant abnormality. EKG is reported as sinus tachycardia. Left axis deviation. Inferior myocardial infarction probably old. Anteroseptal myocardial infarction. 2D echo is reported as left ventricle ejection fraction of 35-40%. Severe right ventricle dilation. Right ventricle dilation and hypokinesis. and showed a large mobile echogenic structure seen in the right atrium extending to the level of tricuspid valve concerning for vegetation versus thrombus. No evidence of extension into the IVC can be seen in the renal cell cancer. Consider VINNIE to further evaluate if clinically indicated. - Labs CBC & Chem 7: 02/20/22 07:03 02/20/22 07:03 Labs: Abnormal Lab Results - Last 24 Hours (Table) 02/19/22 02/19/22 02/19/22 Range/Units 12:47 14:44 15:34 WBC (3.8-10.6) k/uL Plt Count (150-450) k/uL Neutrophils # (1.3-7.7) k/uL Chloride (98-107) mmol/L Carbon Dioxide (22-30) mmol/L BUN (9-20) mg/dL Glucose (74-99) mg/dL POC Glucose (mg/dL) (70-110) mg/dL Plasma Lactic Acid Geo 2.2 H* (0.7-2.0) mmol/L Procalcitonin 0.12 H (0.02-0.09) ng/mL Ur Specific [place] 1.047 H (1.001-1.035) Urine Protein Trace H (Negative) Urine Glucose (UA) 4+ H (Negative) Urine Bacteria Many H (None) /hpf Urine Mucus Rare H (None) /hpf 02/19/22 02/19/22 02/20/22 Range/Units 16:28 20:05 06:03 WBC (3.8-10.6) k/uL Plt Count (150-450) k/uL Neutrophils # (1.3-7.7) k/uL Chloride (98-107) mmol/L Carbon Dioxide (22-30) mmol/L BUN (9-20) mg/dL Glucose (74-99) mg/dL POC Glucose (mg/dL) 159 H 148 H 157 H (70-110) mg/dL Plasma Lactic Acid Geo (0.7-2.0) mmol/L Procalcitonin (0.02-0.09) ng/mL Ur Specific [place] (1.001-1.035) Urine Protein (Negative) Urine Glucose (UA) (Negative) Urine Bacteria (None) /hpf Urine Mucus (None) /hpf 02/20/22 02/20/22 Range/Units 07:03 07:03 WBC 13.4 H (3.8-10.6) k/uL Plt Count 149 L (150-450) k/uL Neutrophils # 10.7 H (1.3-7.7) k/uL Chloride 114 H (98-107) mmol/L Carbon Dioxide 15 L (22-30) mmol/L BUN 21 H (9-20) mg/dL Glucose 161 H (74-99) mg/dL POC Glucose (mg/dL) (70-110) mg/dL Plasma Lactic Acid Geo (0.7-2.0) mmol/L Procalcitonin (0.02-0.09) ng/mL Ur Specific [place] (1.001-1.035) Urine Protein (Negative) Urine Glucose (UA) (Negative) Urine Bacteria (None) /hpf Urine Mucus (None) /hpf Assessment and Plan Assessment: * Acute ischemic stroke (left sided weakness and facial with dysarthria). Etiology of stroke is embolic. 2D echo showed a large mobile echogenic structure seen in the right atrium extending to the level of tricuspid valve concerning for vegetation versus thrombus. * Large mobile echogenic structure seen in the right atrium * Hypotensive episode with the leukocytosis with elevated lactic acid seems due to underlying sepsis * Diabetes mellitus * Hypertension * Hyperlipidemia * History of melanoma and basal cell carcinoma * Tobacco use Plan: I agree with the primary team consulting cardiology for VINNIE. Patient was started on heparin drip by the primary team therefore will discontinue aspirin and I'll will start the patient back on Plavix (since has hx of carduac stent) to avoid the increased risk for bleed from neurological perspective. Continue Lipitor 40 mg daily at bedtime for secondary stroke prophylaxis Pending MRI Brain, lipid panel, hemoglobin A1c, TSH. Continue neuro checks Cardiac monitoring PT OT and NEURORADIOLOGIST are consulted Please avoids any hypotensive episodes. Patient was counseled on tobacco cessation We'll defer the rest of the medical management to primary team For DVT prophylaxis on heparin drip. Condition is very guarded. Plan is discussed with patient and primary team. Time with Patient: Less than 30
[2022-02-20 11:57] LABS: Glucose,Whole Blood 251 mg/dL (70-110)
[2022-02-20] MEDS: HEPARIN SOD,PORK IN 0.45% NACL 25,000 UNIT in 0.45% NACL 1 250ML.BAG IV SCH (12:48)
--- NOTE | 2022-02-20 13:56 | CT ---
EXAMINATION TYPE: CT angio chest CT DLP: 663 mGycm, Automated exposure control for dose reduction was used. DATE OF EXAM: 02/20/2022 1:45 PM COMPARISON: Chest radiograph from same day. CLINICAL INDICATION:Male, 76 years old with history of rule out PE, characterize right atrial thrombu s; Difficulty breathing. TECHNIQUE/CONTRAST: CTA scan of the thorax is performed with IV Contrast, patient injected with 100ml mL of Isovue 370, p ulmonary embolism protocol. MIP images are created and reviewed. FINDINGS: Pulmonary Artery: Extensive bilateral occlusive and nonocclusive filling defects within the main pulm onary arteries extending into the segmental and subsegmental arteries diffusely. There is saddle embo lism identified. The pulmonary artery is mildly enlarged measuring 3.3 cm in transverse dimension. Lungs/Pleura: No evidence of focal consolidation, pleural effusion or pneumothorax. Moderate centrilo bular emphysematous changes. Airway: Large airways are patent. Heart: Mildly enlarged. No pericardial effusion. Coronary arterial calcifications. There is bowing of the interventricular septum into the left ventricle with enlargement of the right ventricle and atri um with reflux of contrast into the IVC and hepatic veins. RV to LV ratio is 1.8. Vasculature: No evidence of aortic aneurysm. This chronic calcification of the aorta and its branches . Mediastinum: No gross evidence of adenopathy. Musculoskeletal: No acute osseous abnormalities Soft Tissues: Unremarkable. Lower neck: No significant findings. Upper Abdomen: Postcholecystectomy. Likely left renal sinus 2.2 cm cyst. 2.6 cm left adrenal myelolip astrid with macroscopic fat density visualized. IMPRESSION: 1. 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 2. Moderate COPD changes. Findings called to and discussed with Dr. Phil Rod at 1:42 PM on 02/20/2022.
--- NOTE | 2022-02-20 14:56 | P.CRDCN ---
History of Present Illness History of present illness: HISTORY OF PRESENTING ILLNESS This is a pleasant 76-year-old male past medical history significant for type 2 diabetes, hypertension, dyslipidemia, tobacco abuse, coronary artery disease s/p penumbra aspiration thrombcetomy LAD, PCI mid LAD and PCI of mid to distal LAD 12/18/2020, ischemic cardiomyopathy with EF 35%. He follows with Dr. Mcarthur. We have been asked to see in consultation for VINNIE. Patient presented to the ER on 02/19/2022 with complaints of left sided weakness. 02/19 morning, patient had symptoms of left arm weakness, that did not improve, shortly after his noticed he had slurred speech and left sided facial droop. He presented to the emergency room for further evaluation. Patient seen and examined at beside, no acute distress. He is up in the bedside chair. Endorses some mild shortness of breath. Denies chest pain. Continues to have slurred speech. Left arm weakness has not improved. States left facial droop has improved. His is at bedside. He denied any chest pain, lightheadedness, dizziness, syncope or near syncope. Neurology evaluated the patient concerning for acute ischemic stroke. He underwent 2D echocardiogram that revealed EF 35-40%, severe right ventricular dilatation, RVSP 28, however may be underestimated secondary to RV dilatation a nd hypokinesis. Large mobile echogenic structure seen in the right atrium extending to the level of the tricuspid valve concerning for vegetation vs thrombus, mild mitral regurgitation. DIAGNOSTICS * EKG reveals sinus tachycardia, HR 111, left axis deviation, incomplete left bundle * Tele[place]ings [place] [id number] * CTA revealed extensive bilateral pulmonary emboli with saddle embolism and findings of right heart strain * 2D echocardiogram that revealed EF 35-40%, severe right ventricular dilatation, RVSP 28, however may be underestimated secondary to RV dilatation and hypokinesis. Large mobile echogenic structure seen in the right atrium extending to the level of the tricuspid valve concerning for vegetation vs thrombus, mild mitral regurgitation. * Previous Echocardiogram in the office 12/11/2021 revealed EF of 3540 percent, right ventricle normal size and function, PAS pain 33 mmHg, trace to mild mitral regurgitation, moderate aortic regurgitation * Laboratory reviewed, WBC 13.4, hemoglobin 14.1, platelets 149, sodium 144, potassium 4.4, BUN 21, serum creatinine 1.14, magnesium 1.9 * Current home cardiac medications include losartan 50 mg daily, metoprolol tartrate 12.5 mg twice a day, Plavix 75 mg daily, spironolactone 20 mg daily, hydrochlorothiazide 25 mg daily, atorvastatin 40 mg nightly, atorvastatin 20 mg daily, metformin 500 mg twice a day * Cardiac catheterization history: * 12/18/2020: Coronary artery disease with mid LAD 99% stenosis, mid to distal LAD 75% stenosis, apical LAD 100% stenosis, circumflex 40% stenosis, RCA 50-60% stenosis. Patient underwent successful Penumbra aspiration thrombcetomy LAD, PCI mid LAD, post dilated proximally with 3.5 NC balloon and PCI of mid to distal LAD. REVIEW OF SYSTEMS At the time of my exam: CONSTITUTIONAL: Denies fever or chills. CARDIOVASCULAR: Denies chest pain, shortness of breath, orthopnea, PND or palpitations. RESPIRATORY: Denies cough. GASTROINTESTINAL: Denies abdominal pain, diarrhea, constipation, nausea or vomiting. MUSCULOSKELETAL: Denies myalgias. NEUROLOGIC: Denies numbness, tingling, headacbe or weakness. ENDOCRINE: Denies fatigue, weight change, polydipsia or polyurina. GENITOURINARY: Denies burning, hematuria or urgency with micturation. HEMATOLOGIC: Denies history of anemia or bleeding. PHYSICAL EXAMINATION Vitals reviewed: Blood pressure 115/71, heart rate 93, afebrile, saturations 92% on 4 L nasal cannula CONSTITUTIONAL: No acute distress HEENT: Head is normocephalic. Pupils are equal, round. Sclerae anicteric. Mucous membranes of the mouth are moist. CHEST EXAMINATION: Lungs are clear to auscultation. No chest wall tenderness is noted on palpation or with deep breathing. HEART EXAMINATION: Regular rate and rhythm. S1, S2 heard. No gallops or rub. ABDOMEN: Soft, nontender. Positive bowel sounds. EXTREMITIES: No lower extremity edema and no calf tenderness. NEUROLOGIC EXAMINATION: Patient is awake, alert and oriented x3. Left arm wea kness. Left facial droop noted. Slurred speech noted. ASSESSMENT Acute ischemic stroke, Left sided weakness, left facial droop, and slurred speech Bilateral pulmonary embolism, saddle pulmonary embolism with right heart strain Right atrium thrombus History of non-STEMI s/p PCI mid LAD and mid to distal LAD on 9/19/21 Ischemic cardiomyopathy EF 35% Diabetes mellitus type 2 Hypertension Hyperlipidemia Tobacco abuse PLAN Patient discussed with Dr. Stephenson and his primary swimming coach or instructor Dr. Mcarthur. Plan for vascular consult for bilateral pulmonary embolism. Vascular surgery and cardiology discussed patient's case and agree patient should be transferred to tertiary center for further evaluation and treatment. Continue current medication regimen Continue IV heparin Further recommendations based on clinical course Nurse practitioner note has been reviewed by physician. Signing provider agrees with the documented findings, assessment, and plan of care. 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 States large cyst removed from armpit. Colonoscopy in the past. Past Anesthesia/Blood Transfusion Reactions: No Reported Reaction Past Psychological History: No Psychological Hx Reported Smoking Status: Current every day smoker Past Alcohol Use History: None Reported Past Drug Use History: None Reported - Past Family History Father Family Medical History: Cancer Additional Family Medical History / Comment(s): Stomach Mother Family Medical History: No Reported History Medications and Allergies Home Medications Medication Instructions Recorded Confirmed Type Empagliflozin [Jardiance] 25 mg PO DAILY 10/19/16 02/19/22 History Latanoprost Ophth [Xalatan 0.005%] 1 drop BOTH EYES HS 10/19/16 02/19/22 History Alogliptin Benzoate [Alogliptin] 25 mg PO DAILY 12/18/20 02/19/22 History Ascorbic Acid [Vitamin C] 500 mg PO DAILY 12/18/20 02/19/22 History Brimonidine Tartrate [Alphagan P 1 drops BOTH EYES BID 12/18/20 02/19/22 History 0.2% Ophth Soln] Cholecalciferol [Vitamin D3 (10 20 mcg PO DAILY 12/18/20 02/19/22 History Mcg = 400 Iu)] Cinnamon Bark [Cinnamon] 1,000 mg PO BID 12/18/20 02/19/22 History Multivitamins, Thera [Multivitamin 1 tab PO DAILY 12/18/20 02/19/22 History (formulary)] Spironolactone [Aldactone] 25 mg PO DAILY 30 Days #30 tab 12/20/20 02/19/22 Rx Atorvastatin Calcium [Lipitor] 40 mg PO HS 02/19/22 02/19/22 History Clopidogrel [Plavix] 75 mg PO DAILY 02/19/22 02/19/22 History Fluticasone Propion/Salmeterol 1 puff INHALATION RT-BID 02/19/22 02/19/22 History [Fluticasone-Salmeterol 250-50] Losartan [Cozaar] 25 mg PO DAILY 02/19/22 02/19/22 History Metoprolol Tartrate [Lopressor] 12.5 mg PO BID 02/19/22 02/19/22 History hydroCHLOROthiazide 25 mg PO DAILY 02/19/22 02/19/22 History metFORMIN HCL ER [Glucophage XR] 500 mg PO BID 02/19/22 02/19/22 History rOPINIRole HCL [Requip] 1 mg PO HS 02/19/22 02/19/22 History Allergies Allergy/AdvReac Type Severity Reaction Status Date / Time oxycodone [From OxyContin] AdvReac Nausea & Verified 02/19/22 14:07 Vomiting Physical Exam Vitals: Vital Signs Temp Pulse Pulse Resp BP BP Pulse Ox 02/20/22 08:00 93 16 115/71 92 L 02/20/22 04:00 98.4 F 80 16 100/61 96 02/20/22 02:00 16 02/20/22 00:00 98 F 80 16 112/70 92 L 02/19/22 20:00 98.7 F 83 16 112/73 96 02/19/22 16:09 97.4 F L 97 16 98/65 94 L 02/19/22 16:08 97.4 F L 97 94 16 98/65 98/65 94 L 02/19/22 16:00 98.5 F 106 H 100 20 95/60 106/65 95 02/19/22 15:55 97.6 F 100 22 104/68 96 02/19/22 15:00 98.2 F 108 H 106 H 20 92/65 110/63 96 02/19/22 14:00 98.5 F 110 H 102 H 20 90/60 100/65 93 L Intake and Output 02/19/22 02/20/22 02/20/22 22:59 06:59 14:59 Intake Total 300 Balance 300 Intake: Intake, IV Titration 300 Amount Azithromycin 500 mg In 250 Sodium Chloride 0.9% 250 ml @ 250 mls/hr IVPB DAILY [facility] Rx#:[id number] cefTRIAXone 1 gm In 50 Sodium Chloride 0.9% 50 ml @ 100 mls/hr IVPB DAILY [facility] Rx#:[id number] Other: Voiding Method Toilet Toilet Toilet Urinal Urinal Urinal # Voids 1 1 Weight 89.176 kg Results 02/20/22 07:03 02/20/22 07:03 Cardiac Enzymes 02/20/22 Range/Units 07:03 AST 32 (17-59) U/L Coagulation 02/20/22 Range/Units 07:03 PT 10.9 (9.0-12.0) sec APTT 24.7 (22.0-30.0) sec CBC 02/20/22 Range/Units 07:03 WBC 13.4 H (3.8-10.6) k/uL RBC 4.37 (4.30-5.90) m/uL Hgb 14.1 (13.0-17.5) gm/dL Hct 43.3 (39.0-53.0) % Plt Count 149 L (150-450) k/uL Comprehensive Metabolic Panel 02/20/22 Range/Units 07:03 Sodium 144 (137-145) mmol/L Potassium 4.4 (3.5-5.1) mmol/L Chloride 114 H (98-107) mmol/L Carbon Dioxide 15 L (22-30) mmol/L BUN 21 H (9-20) mg/dL Creatinine 1.14 (0.66-1.25) mg/dL Glucose 161 H (74-99) mg/dL Calcium 9.0 (8.4-10.2) mg/dL AST 32 (17-59) U/L ALT 40 (4-49) U/L Alkaline Phosphatase 82 (38-126) U/L Total Protein 7.5 (6.3-8.2) g/dL Albumin 4.4 (3.5-5.0) g/dL Current Medications Generic Name Dose Route Start Last Admin Trade Name Freq PRN Reason Stop Dose Admin Acetaminophen 650 mg 02/19/22 14:11 Acetaminophen Tab 325 Mg Tab PO Q6HR PRN Mild Pain or Fever > 100.5 Albuterol/Ipratropium 3 ml 02/19/22 11:49 Ipratropium-Albuterol 3 Ml Neb INHALATION RT-Q4H PRN shortness of breath Ascorbic Acid 500 mg 02/20/22 09:00 02/20/22 08:41 Ascorbic Acid 500 Mg Tab PO Not Given DAILY [facility] Atorvastatin Calcium 40 mg 02/19/22 21:00 02/19/22 20:00 Atorvastatin 40 Mg Tab PO Not Given HS [facility] Brimonidine Tartrate 1 drops 02/19/22 21:00 02/20/22 09:12 Brimonidine Tartrate 0.2% Drops 5 Ml Btl BOTH EYES 1 drops BID [facility]AR Administration Budesonide/Formoterol Fumarate 2 puff 02/19/22 20:00 02/20/22 07:42 Symbicort 80-4.5 Mcg Inhaler INHALATION 2 puff RT-BID [facility] Administration Cholecalciferol 20 mcg 02/20/22 09:00 02/20/22 08:42 Cholecalciferol 10 Mcg (400 Iu) Tablet PO Not Given DAILY [facility] Clopidogrel Bisulfate 75 mg 02/21/22 09:00 Clopidogrel 75 Mg Tab PO DAILY [facility] Heparin Sodium (Porcine) 5,000 unit 02/19/22 16:00 02/20/22 09:11 Heparin Sodium,Porcine/Pf 5,000 Unit/0.5 Ml Syringe SQ 5,000 unit Q8HR [facility] Administration Heparin Sodium (Porcine) 0 unit 02/20/22 10:07 Heparin Sodium 1,000 Un/Ml (10ml Vl) IV PER PROTOCOL PRN Low PTT Protocol Azithromycin 500 mg/ Sodium 250 mls @ 250 mls/hr 02/20/22 09:00 02/20/22 09:12 Chloride IVPB 02/21/22 10:00 250 mls/hr DAILY [facility] Administration Protocol Ceftriaxone Sodium 1 gm/ 50 mls @ 100 mls/hr 02/20/22 09:00 02/20/22 09:12 Sodium Chloride IVPB 100 mls/hr DAILY [facility] Administration Protocol Heparin Sodium/Sodium Chloride 250 mls @ 16.052 mls/hr 02/20/22 10:15 02/20/22 12:48 25,000 unit/ Sodium Chloride IV 18 units/kg/hr .[id number] O[facility] 16.052 mls/hr Administration Protocol 18 UNITS/KG/HR Insulin Aspart 0 unit 02/19/22 17:30 02/20/22 12:51 Insulin Aspart (Novolog) 100 Unit/Ml Vial SQ 4 unit AC-TID [facility] Administration Protocol Latanoprost 1 drops 02/19/22 21:00 02/19/22 20:48 Latanoprost 0.005% Ophth Drops 2.5 Ml Btl BOTH EYES 1 drops HS OUMAR Administration Metoprolol Tartrate 12.5 mg 02/19/22 21:00 02/20/22 08:42 Metoprolol Tartrate 12.5 Mg Tab PO Not Given BID [facility] Miscellaneous Information 1 each 02/19/22 11:49 Pneumonia Protocol Utilized 1 Each Misc PO ONCE PRN Per Protocol Multivitamins 1 each 02/20/22 09:00 02/20/22 08:42 Multivitamins, Thera 1 Each Tab PO Not Given DAILY [facility] Naloxone HCl 0.2 mg 02/19/22 14:15 Naloxone 0.4 Mg/Ml 1 Ml Vial IV Q2M PRN Opioid Reversal Oxycodone/Acetaminophen 1 each 02/19/22 14:11 Oxycodone-Apap 5-325mg 1 Each Tab PO Q4HR PRN Severe Pain (Scale 7 to 10) Ropinirole HCl 1 mg 02/19/22 21:00 02/19/22 20:00 Ropinirole Hcl 1 Mg Tab PO Not Given HS OUMAR Intake and Output 02/19/22 02/20/22 02/20/22 22:59 06:59 14:59 Intake Total 300 Balance 300 Intake: Intake, IV Titration 300 Amount Azithromycin 500 mg In 250 Sodium Chloride 0.9% 250 ml @ 250 mls/hr IVPB DAILY [facility] Rx#:[id number] cefTRIAXone 1 gm In 50 Sodium Chloride 0.9% 50 ml @ 100 mls/hr IVPB DAILY [facility] Rx#:[id number] Other: Voiding Method Toilet Toilet Toilet Urinal Urinal Urinal # Voids 1 1 Weight 89.176 kg 02/20/22 07:03 02/20/22 07:03
[2022-02-20 15:00] LABS: Chol/HDL Ratio 2.55 Ratio; LDL Cholesterol,Calculated 24.2 mg/dL (0.0-131.0)
--- NOTE | 2022-02-20 15:25 | P.GSCN ---
History of Present Illness Consult date: 02/20/22 Reason for Consult: Pulmonary embolism with right heart strain History of present illness: This is 76-year-old male with a history of coronary artery disease status post PCI with 2 stents, ischemic cardiomyopathy with EF of 35%, hypertension, hyperlipidemia, diabetes, COPD current smoker who had presented to the emergency department yesterday with left-sided weakness, left facial droop and slurred speech. Patient was admitted with sepsis with acute hypoxic event respiratory failure community-acquired versus aspiration pneumonia and complicated urinary tract infection as well as acute stroke. CT of the brain to acute intracranial process nonspecific white matter changes including right [place] hypodensity with slightly asymmetric likely secondary to small chronic vessel ischemic disease consider further evaluation with MRI. Patient also underwent a CT angiogram of the head and neck that showed no acute findings. No significant diameter reduction in the carotid arteries. Patient had an echocardiogram that had reported large mobile echogenic structure seen in the right atrium extending to the left of the tricuspid valve concerning for vegetation versus thrombus. Patient also underwent CT angiogram of the chest that reported extensive bilateral pulmonary emboli with saddle embolism and findings of right heart str ain. Moderate COPD changes. Vascular surgery was consulted for possible EKOS. Patient currently on a heparin drip as well as Plavix 75 mg daily. Patient currently states he still has some shortness of breath. He still has left-sided weakness, slurred speech and left facial droop. No other focal deficits reported. He states that he does not have weakness in his left lower extremity. Denies any previous history of blood clots. No previous history of carotid disease or peripheral arterial disease. He does state that he is a current smoker and has been smoking since the age of 16. He follows with Dr. Mcarthur for his coronary artery disease. Review of Systems A 14 point review systems was completed all pertinent positives and negatives as stated in the HPI. 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 States large cyst removed from armpit. Colonoscopy in the past. Past Anesthesia/Blood Transfusion Reactions: No Reported Reaction Past Psychological History: No Psychological Hx Reported Smoking Status: Current every day smoker Past Alcohol Use History: None Reported Past Drug Use History: None Reported - Past Family History Father Family Medical History: Cancer Additional Family Medical History / Comment(s): Stomach Mother Family Medical History: No Reported History Medications and Allergies Home Medications Medication Instructions Recorded Confirmed Type Empagliflozin [Jardiance] 25 mg PO DAILY 10/19/16 02/19/22 History Latanoprost Ophth [Xalatan 0.005%] 1 drop BOTH EYES HS 10/19/16 02/19/22 History Alogliptin Benzoate [Alogliptin] 25 mg PO DAILY 12/18/20 02/19/22 History Ascorbic Acid [Vitamin C] 500 mg PO DAILY 12/18/20 02/19/22 History Brimonidine Tartrate [Alphagan P 1 drops BOTH EYES BID 12/18/20 02/19/22 History 0.2% Ophth Soln] Cholecalciferol [Vitamin D3 (10 20 mcg PO DAILY 12/18/20 02/19/22 History Mcg = 400 Iu)] Cinnamon Bark [Cinnamon] 1,000 mg PO BID 12/18/20 02/19/22 History Multivitamins, Thera [Multivitamin 1 tab PO DAILY 12/18/20 02/19/22 History (formulary)] Spironolactone [Aldactone] 25 mg PO DAILY 30 Days #30 tab 12/20/20 02/19/22 Rx Atorvastatin Calcium [Lipitor] 40 mg PO HS 02/19/22 02/19/22 History Clopidogrel [Plavix] 75 mg PO DAILY 02/19/22 02/19/22 History Fluticasone Propion/Salmeterol 1 puff INHALATION RT-BID 02/19/22 02/19/22 History [Fluticasone-Salmeterol 250-50] Losartan [Cozaar] 25 mg PO DAILY 02/19/22 02/19/22 History Metoprolol Tartrate [Lopressor] 12.5 mg PO BID 02/19/22 02/19/22 History hydroCHLOROthiazide 25 mg PO DAILY 02/19/22 02/19/22 History metFORMIN HCL ER [Glucophage XR] 500 mg PO BID 02/19/22 02/19/22 History rOPINIRole HCL [Requip] 1 mg PO HS 02/19/22 02/19/22 History Allergies Allergy/AdvReac Type Severity Reaction Status Date / Time oxycodone [From OxyContin] AdvReac Nausea & Verified 02/19/22 14:07 Vomiting Surgical - Exam Vital Signs Temp Pulse BP 97.6 F 116 H 91/68 02/19/22 08:49 02/19/22 08:49 02/19/22 08:49 General appearance: The patient is alert, oriented, appears in no acute distress. HET: Head is normocephalic and atraumatic. Pupils are equal and reactive. Neck: Supple without lymphadenopathy. Trachea midline. No audible carotid bruit. Heart: Regular. Lungs: Equal expansion, normal respiratory effort. Abdomen: Soft, nontender, nondistended. Extremities: Normal skin color and turgor. No cyanosis, rash, ulceration, clubbing, or edema. Radial and pedal pulses are 2/4 bilaterally. Neurological: Patient is alert and oriented 3. He has a left facial droop, tongue protrudes mildly to the left. Patient continues with slurred speech, mild left-sided weakness/3/5. Patient is right-hand dominant. Bilateral lower extremities with good strength and tone. Results - Labs 02/20/22 07:03 02/20/22 07:03 Abnormal Lab Results - Last 24 Hours (Table) 02/19/22 02/19/22 02/19/22 Range/Units 14:44 15:34 16:28 WBC (3.8-10.6) k/uL Plt Count (150-450) k/uL Neutrophils # (1.3-7.7) k/uL Chloride (98-107) mmol/L Carbon Dioxide (22-30) mmol/L BUN (9-20) mg/dL Glucose (74-99) mg/dL POC Glucose (mg/dL) 159 H (70-110) mg/dL Plasma Lactic Acid Geo 2.2 H* (0.7-2.0) mmol/L Procalcitonin 0.12 H (0.02-0.09) ng/mL 02/19/22 02/20/22 02/20/22 Range/Units 20:05 06:03 07:03 WBC (3.8-10.6) k/uL Plt Count (150-450) k/uL Neutrophils # (1.3-7.7) k/uL Chloride 114 H (98-107) mmol/L Carbon Dioxide 15 L (22-30) mmol/L BUN 21 H (9-20) mg/dL Glucose 161 H (74-99) mg/dL POC Glucose (mg/dL) 148 H 157 H (70-110) mg/dL Plasma Lactic Acid Geo (0.7-2.0) mmol/L Procalcitonin (0.02-0.09) ng/mL 02/20/22 02/20/22 Range/Units 07:03 11:47 WBC 13.4 H (3.8-10.6) k/uL Plt Count 149 L (150-450) k/uL Neutrophils # 10.7 H (1.3-7.7) k/uL Chloride (98-107) mmol/L Carbon Dioxide (22-30) mmol/L BUN (9-20) mg/dL Glucose (74-99) mg/dL POC Glucose (mg/dL) 251 H (70-110) mg/dL Plasma Lactic Acid Geo (0.7-2.0) mmol/L Procalcitonin (0.02-0.09) ng/mL Microbiology - Last 24 Hours (Table) 02/19/22 10:00 Blood Culture - Preliminary Blood No Growth after 24 hours Diabetes panel 02/20/22 Range/Units 07:03 Sodium 144 (137-145) mmol/L Potassium 4.4 (3.5-5.1) mmol/L Chloride 114 H (98-107) mmol/L Carbon Dioxide 15 L (22-30) mmol/L BUN 21 H (9-20) mg/dL Creatinine 1.14 (0.66-1.25) mg/dL Glucose 161 H (74-99) mg/dL Calcium 9.0 (8.4-10.2) mg/dL AST 32 (17-59) U/L ALT 40 (4-49) U/L Alkaline Phosphatase 82 (38-126) U/L Total Protein 7.5 (6.3-8.2) g/dL Albumin 4.4 (3.5-5.0) g/dL Calcium panel 02/20/22 Range/Units 07:03 Calcium 9.0 (8.4-10.2) mg/dL Albumin 4.4 (3.5-5.0) g/dL Pituitary panel 02/20/22 Range/Units 07:03 Sodium 144 (137-145) mmol/L Potassium 4.4 (3.5-5.1) mmol/L Chloride 114 H (98-107) mmol/L Carbon Dioxide 15 L (22-30) mmol/L BUN 21 H (9-20) mg/dL Creatinine 1.14 (0.66-1.25) mg/dL Glucose 161 H (74-99) mg/dL Calcium 9.0 (8.4-10.2) mg/dL Adrenal panel 02/20/22 Range/Units 07:03 Sodium 144 (137-145) mmol/L Potassium 4.4 (3.5-5.1) mmol/L Chloride 114 H (98-107) mmol/L Carbon Dioxide 15 L (22-30) mmol/L BUN 21 H (9-20) mg/dL Creatinine 1.14 (0.66-1.25) mg/dL Glucose 161 H (74-99) mg/dL Calcium 9.0 (8.4-10.2) mg/dL Total Bilirubin 1.0 (0.2-1.3) mg/dL AST 32 (17-59) U/L ALT 40 (4-49) U/L Alkaline Phosphatase 82 (38-126) U/L Total Protein 7.5 (6.3-8.2) g/dL Albumin 4.4 (3.5-5.0) g/dL - Imaging Comments: Chest CT angiogram reports extensive bilateral pulmonary emboli with saddle embolism and findings of right heart strain. Moderate COPD changes. Echocardiogram Left ventricular ejection fraction 35-40% severe right ventricular dilation, RVSP 28 however may be underestimated secondary to RV di lation and hypokinesis. Large mobile echogenic structure seen in the right atrium extending to the level of the tricuspid valve concerning for vegetation versus thrombus. Consider VINNIE, mild mitral regurgitation no pericardial effusion. CT angiogram head and neck reports no significant abnormality. CT brain without contrast reports no acute intracranial process. Nonspecific white matter changes including right gannon [place] hypodensity with slightly asymmetric, likely secondary to chronic small vessel ischemic disease. Consider further evaluation with MRI Assessment and Plan Assessment: 1. Bilateral pulmonary emboli with saddle embolism and right heart strain 2. Right atrium thrombus 3. Acute ischemic stroke Left-sided weakness, left facial droop and dysarthia 4. History of ischemic cardiomyopathy with an EF 35-40% 5. Coronary artery disease status post stenting 6. Hypertension 7. Type 2 diabetes mellitus 8. Tobacco abuse Plan: Patient with evidence of bilateral pulmonary emboli with saddle embolism with concern for right heart strain as well as right atrial thrombus. Both vascular surgery and cardiology discussed patient's case and agree patient should be transferred to tertiary center for further evaluation and treatment. Continue heparin drip. Plan is to transfer patient to [facility]. Primary care team are taking care of transfer. The plan of care was also discussed with both the patient and his who is at the bedside, and they are agreeable to transfer. The impression and plan of care has been dictated as directed. Dr. Ibarra I performed a history and examination of this patient, discussed the same with the dictator. I agree with the dictator's note ,documented as a scribe. Any additional findings or plans will be noted.
--- NOTE | 2022-02-20 16:29 | P.CNPUL ---
History of Present Illness Consult date: 02/20/22 Reason for consult: dyspnea, COPD History of present illness: This is a 76-year-old gentleman who presented emergency department because of sudden onset of the left-sided weakness including face. He presented to our em ergency department at 8:47 AM today Patient notified the ED nurse that his last normal was 3 AM today and then he won't back to sleep and woke up at 6:45 AM today with left-sided weakness and facial droop. But he notified later that he woke up around 6:45 AM and was doing well then he went downstairs and within 5 minutes he had a sudden left side was weak as well as a was slurring on the left side and drooling on the left side. He felt he was slurring his words He denies any history of stroke. Denies of any numbness any tingling, visual disturbance. Patient stated that he is on antiplatelet but could not tell me the name but according the EMR he is on Plavix 75 mg daily it does not seem he is on aspirin. Patient denies being on anticoagulation he denies any history of atrial fibrillation or the flutter. Patient stated that he does smoke cigarettes. Denies of any illicit drug use. His initial vitals his blood pressure of 91/68, heart rate of 116, temperature of 97.6 oral pulse ox of 85% on 4 L of the nasal cannula then his systolic blood pressures in the 80s over 40s. He was found to be in acute kidney injury. His initial creatinine was 1.54 and his white cell count was 21 and the patient had a component of melena negative metabolic acidosis. His influenza screen came b ack negative. His Covid 19 testing came back negative. CAT scan of the brain showed no acute intracranial process and there was some nonspecific white matter changes including the right gannon radiata and evidence of chronic small vessel ischemic changes. CT angiogram of the brain and the neck showed no significant abnormalities. The patient was not given TPA as the patient was found to be out side the window for this treatment. His chest x-ray showed evidence of COPD. His echocardiogram showed an ejection fraction of 35-40%. There is moderate RV hypokinesis and RV pressures were estimated to be within normal limits. There was a large mobile echogenic structure seen in the right H and extending into the level of the tricuspid valve concerning for vegetation or thrombus. No evidence of extension into the IVC. VINNIE was recommended by the retail and promotions coordinator. No evidence of any pericardial effusion. There is evidence of severe RV dilatation and systolic heart failure. Repeat blood work from today showed a WBC count dropping down to 16.4 with a hemoglobin of 14.1. Platelet count is at 149. The patient's serum bicarb is down to 15 and this is consistent with metabolic acidosis and the sodium levels of 144 and a potassium is at 4.4. Creatinine is normalized and is down to 1.1. LFTs are normal. His UA has been showing plus for glucose and many bacteria. The white cell count is only at 5. The initial pro-calcitonin level is at 0.12. ProBNP elevated at 4063. The patient a ccordingly was started on antiplatelet agents and the patient was given Plavix 75 mg by mouth daily. The patient was also placed on IV heparin regarding the intracardiac thrombus and given a broad-spectrum empiric antibiotic coverage including combination of Rocephin and Zithromax. Due to concern of this intracardiac thrombus and possibility of pulmonary embolism as the patient was hypoxic, the patient underwent a CT angiogram and the patient was found to have extensive bilateral pulmonary emboli with saddle embolism and evidence of right ventricular strain. There is also background moderate degree of COPD. As mentioned, the patient was started on IV heparin. Review of Systems Constitutional: Reports as per HPI Eyes: denies as per HPI, denies blurred vision, denies bulging eye, denies decreased vision, denies diplopia, denies discharge, denies dry eye, denies irritation, denies itching, denies pain, denies photophobia, denies loss of peripheral vision, denies loss of vision, denies tunnel vision/blind spots Ears: deny: decreased hearing, ear discharge, earache, tinnitus Ears, nose, mouth and throat: Reports as per HPI Breasts: absent: as per HPI, gynecomastia Cardiovascular: Reports decreased exercise tolerance, Reports dyspnea on exertion Respiratory: Reports cough, Reports dyspnea Gastrointestinal: Reports as per HPI Genitourinary: Reports as per HPI Musculoskeletal: Reports as per HPI Musculoskeletal: absent: ankle pain, ankle stiffness, ankle swelling Integumentary: Reports as per HPI Neurological: Reports change in speech, Reports gait dysfunction, Reports numbness, Reports paralysis, Reports weakness Past Medical History Past Medical History: Coronary Artery Disease (CAD), Cancer, Heart Failure, COPD, Diabetes Mellitus, Hyperlipidemia, Hypertension, Myocardial Infarction ([place]) (2020) Additional Past Medical History / Comment(s): 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 States large cyst removed from armpit. Colonoscopy in the past. Past Anesthesia/Blood Transfusion Reactions: No Reported Reaction Past Psychological History: No Psychological Hx Reported Smoking Status: Current every day smoker Past Alcohol Use History: None Reported Past Drug Use History: None Reported - Past Family History Father Family Medical History: Cancer Additional Family Medical History / Comment(s): Stomach Mother Family Medical History: No Reported History Medications and Allergies Home Medications Medication Instructions Recorded Confirmed Type Empagliflozin [Jardiance] 25 mg PO DAILY 10/19/16 02/19/22 History Latanoprost Ophth [Xalatan 0.005%] 1 drop BOTH EYES HS 10/19/16 02/19/22 History Alogliptin Benzoate [Alogliptin] 25 mg PO DAILY 12/18/20 02/19/22 History Ascorbic Acid [Vitamin C] 500 mg PO DAILY 12/18/20 02/19/22 History Brimonidine Tartrate [Alphagan P 1 drops BOTH EYES BID 12/18/20 02/19/22 History 0.2% Ophth Soln] Cholecalciferol [Vitamin D3 (10 20 mcg PO DAILY 12/18/20 02/19/22 History Mcg = 400 Iu)] Cinnamon Bark [Cinnamon] 1,000 mg PO BID 12/18/20 02/19/22 History Multivitamins, Thera [Multivitamin 1 tab PO DAILY 12/18/20 02/19/22 History (formulary)] Spironolactone [Aldactone] 25 mg PO DAILY 30 Days #30 tab 12/20/20 02/19/22 Rx Atorvastatin Calcium [Lipitor] 40 mg PO HS 02/19/22 02/19/22 History Clopidogrel [Plavix] 75 mg PO DAILY 02/19/22 02/19/22 History Fluticasone Propion/Salmeterol 1 puff INHALATION RT-BID 02/19/22 02/19/22 History [Fluticasone-Salmeterol 250-50] Losartan [Cozaar] 25 mg PO DAILY 02/19/22 02/19/22 History Metoprolol Tartrate [Lopressor] 12.5 mg PO BID 02/19/22 02/19/22 History hydroCHLOROthiazide 25 mg PO DAILY 02/19/22 02/19/22 History metFORMIN HCL ER [Glucophage XR] 500 mg PO BID 02/19/22 02/19/22 History rOPINIRole HCL [Requip] 1 mg PO HS 02/19/22 02/19/22 History Allergies Allergy/AdvReac Type Severity Reaction Status Date / Time oxycodone [From OxyContin] AdvReac Nausea & Verified 02/19/22 14:07 Vomiting Physical Exam Vitals: Vital Signs Temp Pulse Pulse Resp BP BP Pulse Ox 02/20/22 08:00 93 16 115/71 92 L 02/20/22 04:00 98.4 F 80 16 100/61 96 02/20/22 02:00 16 02/20/22 00:00 98 F 80 16 112/70 92 L 02/19/22 20:00 98.7 F 83 16 112/73 96 02/19/22 16:09 97.4 F L 97 16 98/65 94 L 02/19/22 16:08 97.4 F L 97 94 16 98/65 98/65 94 L 02/19/22 16:00 98.5 F 106 H 100 20 95/60 106/65 95 02/19/22 15:55 97.6 F 100 22 104/68 96 02/19/22 15:00 98.2 F 108 H 106 H 20 92/65 110/63 96 02/19/22 14:00 98.5 F 110 H 102 H 20 90/60 100/65 93 L 02/19/22 13:10 98 18 94/55 98 02/19/22 13:00 97.9 F 106 H 18 98/60 95 02/19/22 12:00 98.6 F 110 H 20 95/63 95 Intake and Output 02/19/22 02/20/22 02/20/22 22:59 06:59 14:59 Intake Total 300 Balance 300 Intake: Intake, IV Titration 300 Amount Azithromycin 500 mg In 250 Sodium Chloride 0.9% 250 ml @ 250 mls/hr IVPB DAILY OUMAR Rx#:[id number] cefTRIAXone 1 gm In 50 Sodium Chloride 0.9% 50 ml @ 100 mls/hr IVPB DAILY OUMAR Rx#:[id number] Other: Voiding Method Toilet Toilet Toilet Urinal Urinal Urinal # Voids 1 1 Weight 89.176 kg Gen. appearance the patient is calm and comfortable on 4 L of O2 nasal cannula Head exam was generally normal. There was no scleral icterus or corneal arcus. Mucous membranes were moist. Neck was supple and without jugular venous distension, thyromegaly, or carotid bruits. Carotids were easily palpable bilaterally. There was no adenopathy. Lungs sounds are diminished bilaterally otherwise clear Cardiac exam revealed the PMI to be normally situated and sized. The rhythm was regular and no extrasystoles were noted during several minutes of auscultation. The first and second heart sounds were normal and physiologic splitting of the second heart sound was noted. There were no murmurs, rubs, clicks, or gallops. Abdominal exam revealed normal bowel sounds. The abdomen was soft, non-tender, and without masses, organomegaly, or appreciable enlargement of the abdominal aorta. Examination of the extremities revealed easily palpable radial, femoral and pedal pulses. There was no cyanosis, clubbing or edema. Examination of the skin revealed no evidence of significant rashes, suspicious appearing nevi or other concerning lesions. Neurologically, the patient is alert and awake 3. No aphasia. Following simple commands. He does have left facial weakness, motor function is also reducible left upper and left lower extremity and the motor function is in order of 4 out of 5, motor function on the right is within normal limits. Normal cerebellar functions. Normal sensitivity. Plantars are mute bilaterally. Reflexes are symmetrical. Results - Laboratory Findings CBC and BMP: 02/20/22 07:03 02/20/22 07:03 ABG WBC 13.4 k/uL (3.8-10.6) H 02/20/22 07:03 RBC 4.37 m/uL (4.30-5.90) 02/20/22 07:03 Hgb 14.1 gm/dL (13.0-17.5) 02/20/22 07:03 Hct 43.3 % (39.0-53.0) 02/20/22 07:03 MCV 99.0 fL (80.0-100.0) 02/20/22 07:03 MCH 32.2 pg (25.0-35.0) 02/20/22 07:03 MCHC 32.5 g/dL (31.0-37.0) 02/20/22 07:03 RDW 14.4 % (11.5-15.5) 02/20/22 07:03 Plt Count 149 k/uL (150-450) L 02/20/22 07:03 MPV 9.5 02/20/22 07:03 Neutrophils % 80 % 02/20/22 07:03 Lymphocytes % 11 % 02/20/22 07:03 Monocytes % 5 % 02/20/22 07:03 Eosinophils % 1 % 02/20/22 07:03 Basophils % 0 % 02/20/22 07:03 Neutrophils # 10.7 k/uL (1.3-7.7) H 02/20/22 07:03 Lymphocytes # 1.5 k/uL (1.0-4.8) 02/20/22 07:03 Monocytes # 0.7 k/uL (0-1.0) 02/20/22 07:03 Eosinophils # 0.1 k/uL (0-0.7) 02/20/22 07:03 Basophils # 0.1 k/uL (0-0.2) 02/20/22 07:03 Hypochromasia Slight 02/20/22 07:03 PT 10.9 sec (9.0-12.0) 02/20/22 07:03 INR 1.0 (<1.2) 02/20/22 07:03 APTT 24.7 sec (22.0-30.0) 02/20/22 07:03 Sodium 144 mmol/L (137-145) 02/20/22 07:03 Potassium 4.4 mmol/L (3.5-5.1) 02/20/22 07:03 Chloride 114 mmol/L (98-107) H 02/20/22 07:03 Carbon Dioxide 15 mmol/L (22-30) L 02/20/22 07:03 Anion Gap 15 mmol/L 02/20/22 07:03 BUN 21 mg/dL (9-20) H 02/20/22 07:03 Creatinine 1.14 mg/dL (0.66-1.25) 02/20/22 07:03 Est GFR (CKD-EPI)AfAm 72 (>60 ml/min/1.73 sqM) 02/20/22 07:03 Est GFR (CKD-EPI)NonAf 63 (>60 ml/min/1.73 sqM) 02/20/22 07:03 Glucose 161 mg/dL (74-99) H 02/20/22 07:03 POC Glucose (mg/dL) 157 mg/dL (70-110) H 02/20/22 06:03 POC Glu Rig Welder ID Lucy Lu 02/20/22 06:03 Lactic Ac Sepsis Rflx Y 02/19/22 15:19 Plasma Lactic Acid Geo 1.9 mmol/L (0.7-2.0) 02/19/22 18:02 Calcium 9.0 mg/dL (8.4-10.2) 02/20/22 07:03 Magnesium 1.9 mg/dL (1.6-2.3) 02/20/22 07:03 Total Bilirubin 1.0 mg/dL (0.2-1.3) 02/20/22 07:03 AST 32 U/L (17-59) 02/20/22 07:03 ALT 40 U/L (4-49) 02/20/22 07:03 Alkaline Phosphatase 82 U/L (38-126) 02/20/22 07:03 Troponin I 0.080 ng/mL (0.000-0.034) H* 02/19/22 09:00 NT-Pro-B Natriuret Pep 463 pg/mL 02/19/22 10:21 Total Protein 7.5 g/dL (6.3-8.2) 02/20/22 07:03 Albumin 4.4 g/dL (3.5-5.0) 02/20/22 07:03 Procalcitonin 0.12 ng/mL (0.02-0.09) H 02/19/22 15:34 Urine Color Light Yellow 02/19/22 12:47 Urine Appearance Clear (Clear) 02/19/22 12:47 Urine pH 5.0 (5.0-8.0) 02/19/22 12:47 Ur Specific [place] 1.047 (1.001-1.035) H 02/19/22 12:47 Urine Protein Trace (Negative) H 02/19/22 12:47 Urine Glucose (UA) 4+ (Negative) H 02/19/22 12:47 Urine Ketones Negative (Negative) 02/19/22 12:47 Urine Blood Negative (Negative) 02/19/22 12:47 Urine Nitrite Positive (Negative) 02/19/22 12:47 Urine Bilirubin Negative (Negative) 02/19/22 12:47 Urine Urobilinogen <2.0 mg/dL (<2.0) 02/19/22 12:47 Ur Leukocyte Esterase Negative (Negative) 02/19/22 12:47 Urine RBC 1 /hpf (0-5) 02/19/22 12:47 Urine WBC 5 /hpf (0-5) 02/19/22 12:47 Ur Squamous Epith Cells <1 /hpf (0-4) 02/19/22 12:47 Urine Bacteria Many /hpf (None) H 02/19/22 12:47 Urine Mucus Rare /hpf (None) H 02/19/22 12:47 Coronavirus (PCR) Not Detected (Not Detectd) 02/19/22 10:21 Influenza Type A RNA Not Detected (Not Detectd) 02/19/22 10:21 Influenza Type B (PCR) Not Detected (Not Detectd) 02/19/22 10:21 PT/INR, D-dimer PT 10.9 sec (9.0-12.0) 02/20/22 07:03 INR 1.0 (<1.2) 02/20/22 07:03 Abnormal lab findings: Abnormal Labs 02/19/22 02/19/22 02/19/22 09:00 09:00 09:00 WBC 21.0 H Plt Count Neutrophils # 17.7 H APTT Chloride 108 H Carbon Dioxide 17 L BUN 26 H Creatinine 1.54 H Glucose 279 H POC Glucose (mg/dL) Plasma Lactic Acid Geo Total Bilirubin 1.5 H Troponin I 0.080 H* Procalcitonin Ur Specific [place] Urine Protein Urine Glucose (UA) Urine Bacteria Urine Mucus 02/19/22 02/19/22 02/19/22 09:15 10:21 12:47 WBC Plt Count Neutrophils # APTT 21.7 L Chloride Carbon Dioxide BUN Creatinine Glucose POC Glucose (mg/dL) Plasma Lactic Acid Geo 2.9 H* Total Bilirubin Troponin I Procalcitonin Ur Specific [place] 1.047 H Urine Protein Trace H Urine Glucose (UA) 4+ H Urine Bacteria Many H Urine Mucus Rare H 02/19/22 02/19/22 02/19/22 14:44 15:34 16:28 WBC Plt Count Neutrophils # APTT Chloride Carbon Dioxide BUN Creatinine Glucose POC Glucose (mg/dL) 159 H Plasma Lactic Acid Geo 2.2 H* Total Bilirubin Troponin I Procalcitonin 0.12 H Ur Specific [place] Urine Protein Urine Glucose (UA) Urine Bacteria Urine Mucus 02/19/22 02/20/22 02/20/22 20:05 06:03 07:03 WBC Plt Count Neutrophils # APTT Chloride 114 H Carbon Dioxide 15 L BUN 21 H Creatinine Glucose 161 H POC Glucose (mg/dL) 148 H 157 H Plasma Lactic Acid Geo Total Bilirubin Troponin I Procalcitonin Ur Specific [place] Urine Protein Urine Glucose (UA) Urine Bacteria Urine Mucus 02/20/22 07:03 WBC 13.4 H Plt Count 149 L Neutrophils # 10.7 H APTT Chloride Carbon Dioxide BUN Creatinine Glucose POC Glucose (mg/dL) Plasma Lactic Acid Geo Total Bilirubin Troponin I Procalcitonin Ur Specific [place] Urine Protein Urine Glucose (UA) Urine Bacteria Urine Mucus Assessment and Plan Plan: Acute bilateral pulmonary embolism with saddle embolism and evidence of RV strain and significant pulmonary hypertension. Patient also has a necrotic thrombus involving the right atrium as evident on the echocardiogram. There are ventilator systolic pressure was estimated to be 28. The patient has of the dysfunction and the patient also has IV dilatation and hypokinesis and large echogenic structure seen in the right atrium extending into the tricuspid valve most likely a thrombus. No evidence of extension into the IVC. Also, consider possibility of a bacterial vegetation and septic embolism. This is felt to be less likely based on the CAT scan findings. Acute ischemic stroke and the patient presented with left-sided weakness and left facial weakness and dysarthria. This is most likely an embolic phenomena. Paradoxic embolism cannot be completely excluded. The patient was seen by neurology. The patient was outside the window for tocolytics and the patient was not offered any thrombolytic therapy. Acute hypoxic respiratory failure currently on 4 L O2 nasal cannula COPD CHF with impaired LV function and ejection fraction of 35% Diabetes mellitus type 2 Hypertension Hyperlipidemia Previous history of melanoma and basal cell carcinoma Smoker Plan Obtain Dopplers of the lower extremities Give the patient IV heparin Obtain a vascular surgery consultation regarding the need for catheter directed thrombolytic treatment. This will be somewhat relatively contraindicated as the patient has had a recent CVA with ongoing left-sided weakness Continue IV heparin for now Transfer the patient to the intensive care unit Monitor hemodynamics Obtain blood cultures May discontinue the current antibiotics for now pending blood cultures Neuro evaluation regarding the recent CVA MRI of the brain Continue Lipitor Smoking cessation counseling Condition is critical at this point in time Time with Patient: Greater than 30
[2022-02-20 17:05] LABS: Glucose,Whole Blood 157 mg/dL (70-110)
--- NOTE | 2022-02-20 17:55 | US ---
EXAMINATION TYPE: US venous doppler duplex LE DATE OF EXAM: 02/20/2022 5:39 PM COMPARISON: NONE CLINICAL HISTORY: Pulmonary embolism. On IV heparin. Inpatient. SIDE PERFORMED: Bilateral TECHNIQUE: The lower extremity deep venous system is examined utilizing real time linear array sonog pam with graded compression, doppler sonography and color-flow sonography. VESSELS IMAGED: Common Femoral Vein Deep Femoral Vein Greater Saphenous Vein * Femoral Vein Popliteal Vein Small Saphenous Vein * Proximal Calf Veins (* superficial vessels) Right Leg: Positive for DVT in Mid popliteal vein and duplicate distal popliteal vein. Clot visuali zed in PTV vein. Left Leg: Negative for DVT IMPRESSION: There is evidence of acute deep vein thrombosis in the popliteal and posterior tibial vei n of the right leg. No evidence of deep vein thrombosis in the left leg.
--- NOTE | 2022-02-20 18:33 | P.DS ---
Providers Date of admission: 02/19/22 14:11 Expected date of discharge: 02/20/22 Attending physician: Phil Rod MD Consults: 02/19/22 14:15 Consult Physician Urgent Consulting Provider: Meme Downing Consult Reason/Comments: hypoxic resp failure, copd, cap Do you want consulting provider notified?: Yes Consult Physician Urgent Consulting Provider: Trent Alonzo Consult Reason/Comments: acute left sided weakness, acute cva Do you want consulting provider notified?: Yes 02/20/22 10:13 Consult Physician Routine Consulting Provider: Leobardo Stephenson Consult Reason/Comments: VINNIE for embolic stroke rule out Do you want consulting provider notified?: Yes 02/20/22 14:45 Consult Physician Urgent Consulting Provider: Melissa Ibarra Consult Reason/Comments: Pulmonary Embolism Do you want consulting provider notified?: Already Contacted Primary care physician: [facility] Course: Sepsis with acute hypoxemic respiratory failure Community acquired versus Aspiration pneumonia Complicated urinary tract infection Acute stroke CAD Chronic systolic heart failure, ejection fraction 35% Ischemic cardiomyopathy Hypertension Hyperlipidemia Diabetes type 2 COPD without exacerbation Nicotine abuse 76-year-old man with a history of CAD status post PCI with 2 stents, ischemic cardiomyopathy with ejection fraction of 35%, hypertension, hyperlipidemia, diabetes, COPD, active smoker presented with left-sided weakness. In the emergency room, patient was afebrile, 91/68, heart rate 116, 85% on room air, improved to 94% on 4 L nasal cannula. CBC was remarkable for leukocytosis at 21. Chemistries are remarkable for a chloride of 108, CO2 of 17, BUN of 26, creatinine of 1.5. Liver function tests showed bilirubin of 1.5. Initial troponin is 0.08. BNP was 463. Lactic acid was 2.9. UA showed trace protein, 4+ glucose, positive nitrite, many bacteria. Covid was negative. Influenza A, B were negative. Coags were unremarkable. CT of the brain shows a hypodense area within the right gannon radiata. CT angiography of the head and neck showed no significant diameter reduction. Chest x-ray shows COPD as well as le ft lower lobe infiltrate, chronic interstitial lung disease. He shows sinus tachycardia with left axis deviation, no evidence of ischemia. Patient received 2 L of fluid bolus, dose of ceftriaxone, azithromycin. Patient was admitted to medicine for further evaluation, neurology was consulted. Patient's echocardiogram ultimately returned with a significant finding of reduced ejection fraction of 35-40% as well as findings of a mobile right atrial thrombus. Patient was ultimately started on IV heparin and underwent CT angiography of the chest, which demonstrated saddle embolus with evidence of right heart strain. [place] was discontinued, aspirin was discontinued, Plavix was restarted. Case was discussed between vascular surgery and cardiology, who recommended transfer to tertiary care for further management. Patient was accepted by Dr. Vale from [facility] with consultation from Dr. Ibarra, the vascular surgeon. See same day progress note for physical exam Patient Condition at Discharge: Serious Plan - Discharge Summary Discharge Rx Participant: Yes New Discharge Prescriptions: No Action Latanoprost Ophth [Xalatan 0.005%] 1 drop BOTH EYES HS Empagliflozin [Jardiance] 25 mg PO DAILY Alogliptin Benzoate [Alogliptin] 25 mg PO DAILY Cinnamon Bark [Cinnamon] 1,000 mg PO BID Cholecalciferol [Vitamin D3 (10 Mcg = 400 Iu)] 20 mcg PO DAILY Ascorbic Acid [Vitamin C] 500 mg PO DAILY rOPINIRole HCL [Requip] 1 mg PO HS metFORMIN HCL ER [Glucophage XR] 500 mg PO BID Fluticasone Propion/Salmeterol [Fluticasone-Salmeterol 250-50] 1 puff INHALATION RT-BID Clopidogrel [Plavix] 75 mg PO DAILY Losartan [Cozaar] 25 mg PO DAILY Multivitamins, Thera [Multivitamin (formulary)] 1 tab PO DAILY Brimonidine Tartrate [Alphagan P 0.2% Ophth Soln] 1 drops BOTH EYES BID Spironolactone [Aldactone] 25 mg PO DAILY 30 Days #30 tab Atorvastatin Calcium [Lipitor] 40 mg PO HS hydroCHLOROthiazide 25 mg PO DAILY Metoprolol Tartrate [Lopressor] 12.5 mg PO BID Discharge Medication List Empagliflozin [Jardiance] 25 mg PO DAILY 10/19/16 [History] Latanoprost Ophth [Xalatan 0.005%] 1 drop BOTH EYES HS 10/19/16 [History] Alogliptin Benzoate [Alogliptin] 25 mg PO DAILY 12/18/20 [History] Ascorbic Acid [Vitamin C] 500 mg PO DAILY 12/18/20 [History] Brimonidine Tartrate [Alphagan P 0.2% Ophth Soln] 1 drops BOTH EYES BID 12/18/20 [History] Cholecalciferol [Vitamin D3 (10 Mcg = 400 Iu)] 20 mcg PO DAILY 12/18/20 [History] Cinnamon Bark [Cinnamon] 1,000 mg PO BID 12/18/20 [History] Multivitamins, Thera [Multivitamin (formulary)] 1 tab PO DAILY 12/18/20 [History] Spironolactone [Aldactone] 25 mg PO DAILY 30 Days #30 tab 12/20/20 [Rx] Atorvastatin Calcium [Lipitor] 40 mg PO HS 02/19/22 [History] Clopidogrel [Plavix] 75 mg PO DAILY 02/19/22 [History] Fluticasone Propion/Salmeterol [Fluticasone-Salmeterol 250-50] 1 puff INHALATION RT-BID 02/19/22 [History] Losartan [Cozaar] 25 mg PO DAILY 02/19/22 [History] Metoprolol Tartrate [Lopressor] 12.5 mg PO BID 02/19/22 [History] hydroCHLOROthiazide 25 mg PO DAILY 02/19/22 [History] metFORMIN HCL ER [Glucophage XR] 500 mg PO BID 02/19/22 [History] rOPINIRole HCL [Requip] 1 mg PO HS 02/19/22 [History] Follow up Appointment(s)/Referral(s): Ebenezer Guerrero MD [Primary Care Provider] - 1-2 days [facility] Visiting Nurse, [NON-STAFF] - Patient Instructions/Handouts: Ischemic Stroke (GEN)
[2022-02-20 19:57] LABS: Glucose,Whole Blood 251 mg/dL (70-110)
[2022-02-20] MEDS: LATANOPROST 0.005% OPHTH DROPS 2.5 ML BTL BOTH EYES SCH (20:25)
[2022-02-20] MEDS: ATORVASTATIN 40 MG TAB PO SCH (20:25)
[2022-02-21] MEDS: HEPARIN SOD,PORK IN 0.45% NACL 25,000 UNIT in 0.45% NACL 1 250ML.BAG IV SCH (03:08)
[2022-02-21 06:02] LABS: Glucose,Whole Blood 200 mg/dL (70-110)
[2022-02-21] MEDS: INSULIN ASPART (NovoLOG) 100 UNIT/ML VIAL SQ SCH ×3 (06:15→16:56)
[2022-02-21] MEDS: SYMBICORT 80-4.5 MCG INHALER INHALATION SCH ×2 (07:25→19:58)
--- NOTE | 2022-02-21 08:07 | P.PN ---
Subjective Progress Note Date: 02/21/22 Principal diagnosis: Bilateral saddle pulmonary emboli Patient is seen and examined today as a follow-up for bilateral pulmonary emboli with evidence of right heart strain on CTA. Patient was also noted on echocardiogram to have thrombus in the right atrium. vascular surgery and cardiology recommending patient being transfer to tertiary center for higher level of care. At this time patient had been accepted to [facility] however no beds available. Patient underwent a venous duplex of the lower extremities yesterday that did show right lower extremity DVT in the popliteal and posterior tibial vein of the right leg. Patient denies any pain in his leg, states he has not noticed prior any pain in his legs, redness or swelling. Patient denies any shortness of breath or chest pain at rest. He is on 5 L of nasal cannula with an oxygen saturation between 90-93%. He has been afebrile. Last blood pressure 125/80 respiratory rate 22, heart rate 74. He remains on IV heparin drip at this time. Objective - Vital Signs Vital signs: Vital Signs Temp 97.9 F 02/21/22 03:50 Pulse 74 02/21/22 03:50 Resp 22 02/21/22 03:50 BP 125/80 02/21/22 03:50 Pulse Ox 93 L 02/21/22 03:50 FiO2 Intake & Output 02/20/22 02/21/22 02/21/22 18:59 06:59 18:59 Intake Total 620 493.082 Output Total 350 Balance 620 143.082 Intake: Intake, IV Titration 380 253.082 Amount Azithromycin 500 mg In 250 Sodium Chloride 0.9% 250 ml @ 250 mls/hr IVPB DAILY [facility] Rx#:[id number] Heparin Sod,Pork in 0.45% 80 253.082 NaCl 25,000 unit In 0.45 % NaCl 1 250ml.bag @ 18 UNITS/KG/HR 16.052 mls/hr IV .[id number] [facility] Rx#: [id number] cefTRIAXone 1 gm In 50 Sodium Chloride 0.9% 50 ml @ 100 mls/hr IVPB DAILY [facility] Rx#:[id number] Oral 240 240 Output: Urine 350 Other: Voiding Method Toilet Toilet Urinal Urinal # Voids 1 - Exam General appearance: The patient is alert, oriented, appears in no acute distress. HET: Head is normocephalic and atraumatic. Pupils are equal and reactive. Neck: Supple without lymphadenopathy. Trachea midline. Heart: Regular. Lungs: Equal expansion, normal respiratory effort. Abdomen: Soft, nontender, nondistended. Extremities: Normal skin color and turgor. No cyanosis, rash, ulceration, clubbing, or edema. Radial and pedal pulses are 2/4 bilaterally. Neurological: No focal deficits. Strength and sensation are grossly intact. - Labs CBC & Chem 7: 02/20/22 07:03 02/20/22 07:03 Labs: Abnormal Lab Results - Last 24 Hours (Table) 02/20/22 02/20/22 02/20/22 Range/Units 07:03 07:03 11:47 APTT (22.0-30.0) sec POC Glucose (mg/dL) 251 H (70-110) mg/dL Hemoglobin A1c 8.6 H (0.0-6.0) % Triglycerides 216.00 H (0.00-149.00) mg/dL VLDL Cholesterol, Calc 43.20 H (5.00-40.00) mg/dL Procalcitonin (0.02-0.09) ng/mL 02/20/22 02/20/22 02/20/22 Range/Units 16:53 18:34 18:50 APTT 40.1 H (22.0-30.0) sec POC Glucose (mg/dL) 157 H (70-110) mg/dL Hemoglobin A1c (0.0-6.0) % Triglycerides (0.00-149.00) mg/dL VLDL Cholesterol, Calc (5.00-40.00) mg/dL Procalcitonin 0.34 H (0.02-0.09) ng/mL 02/20/22 02/21/22 02/21/22 Range/Units 19:55 02:40 06:01 APTT 106.1 H* (22.0-30.0) sec POC Glucose (mg/dL) 251 H 200 H (70-110) mg/dL Hemoglobin A1c (0.0-6.0) % Triglycerides (0.00-149.00) mg/dL VLDL Cholesterol, Calc (5.00-40.00) mg/dL Procalcitonin (0.02-0.09) ng/mL Microbiology - Last 24 Hours (Table) 02/19/22 12:38 Blood Culture - Preliminary Blood No Growth after 24 hours 02/19/22 10:00 Blood Culture - Preliminary Blood No Growth after 24 hours Assessment and Plan Assessment: 1. Bilateral pulmonary emboli with saddle embolism and right heart strain 2. Right atrium thrombus 3. Acute ischemic stroke Left-sided weakness, left facial droop and dysarthia 4. History of ischemic cardiomyopathy with an EF 35-40% 5. Coronary artery disease status post stenting 6. Hypertension 7. Type 2 diabetes mellitus 8. Tobacco abuse Plan: Patient with evidence of bilateral pulmonary emboli with saddle embolism with concern for right heart strain as well as right atrial thrombus. Both vascular surgery and cardiology discussed patient's case and agree patient should be transferred to tertiary center for further evaluation and treatment. Continue heparin drip. Plan is to transfer patient to [facility], currently waiting on bed availability. If there will be a prolonged time for transfer to [facility], recommend other tertiary hospitals such as [facility], [facility] or [place]. The impression and plan of care has been dictated as directed. Dr. Ibarra I performed a history and examination of this patient, discussed the same with the dictator. I agree with the dictator's note ,documented as a scribe. Any additional findings or plans will be noted.
[2022-02-21] MEDS: CHOLECALCIFEROL 10 MCG (400 IU) TABLET PO SCH (08:25)
[2022-02-21] MEDS: METOPROLOL TARTRATE 12.5 MG TAB PO SCH (08:25)
[2022-02-21] MEDS: MULTIVITAMINS, THERA 1 EACH TAB PO SCH (08:25)
[2022-02-21] MEDS: ASCORBIC ACID 500 MG TAB PO SCH (08:25)
[2022-02-21] MEDS: HEPARIN SODIUM,PORCINE/PF 5,000 UNIT/0.5 ML SYRINGE SQ SCH (08:25)
[2022-02-21] MEDS: BRIMONIDINE TARTRATE 0.2% DROPS 5 ML BTL BOTH EYES SCH (08:26)
[2022-02-21] MEDS ORDERED: CLOPIDOGREL 75 MG TAB PO SCH (09:00)
[2022-02-21 10:11] VITALS: RESP 18; TEMP 97.7
[2022-02-21 11:31] LABS: Basophils % (A) 0 %; Eosinophils % (A) 0 %; HCT 39.1 % (39.0-53.0); HGB 13.1 gm/dL (13.0-17.5); Lymphocytes # (A) 1.4 k/uL (1.0-4.8); Lymphocytes % (A) 11 %; MCH 32.6 pg (25.0-35.0); MCHC 33.5 g/dL (31.0-37.0); MCV 97.4 fL (80.0-100.0); Mean Platelet Volume 9.5; Monocytes # (A) 0.8 k/uL (0-1.0); Monocytes % (A) 6 %; Neutrophils # (A) 9.8 k/uL (1.3-7.7); Neutrophils % (A) 78 %; Platelet Count 142 k/uL (150-450); RBC 4.01 m/uL (4.30-5.90); RDW 14.4 % (11.5-15.5); WBC 12.5 k/uL (3.8-10.6)
--- NOTE | 2022-02-21 11:45 | P.PN ---
Subjective his is a pleasant 76-year-old male past medical history significant for type 2 diabetes, hypertension, dyslipidemia, tobacco abuse, coronary artery disease s/p penumbra aspiration thrombcetomy LAD, PCI mid LAD and PCI of mid to distal LAD 12/18/2020, ischemic cardiomyopathy with EF 35%. He follows with Dr. Mcarthur. We have been asked to see in consultation for VINNIE. Patient presented to the ER on 02/19/2022 with complaints of left sided weakness. 02/19 morning, patient had symptoms of left arm weakness, that did not improve, shortly after his noticed he had slurred speech and left sided facial droop. He presented to the emergency room for further evaluation. Neurology evaluated the patient concerning for acute ischemic stroke. He underwent 2D echocardiogram that revealed EF 35-40%, severe right ventricular dilatation, RVSP 28, however may be underestimated secondary to RV dilatation and hypokinesis. Large mobile echogenic structure seen in the right atrium extending to the level of the tricuspid valve concerning for vegetation vs thrombus, mild mitral regurgitation. DIAGNOSTICS * CTA revealed extensive bilateral pulmonary emboli with saddle embolism and findings of right heart strain * 2D echocardiogram that revealed EF 35-40%, severe right ventricular dilatation, RVSP 28, however may be underestimated secondary to RV dilatation and hypokinesis. Large mobile echogenic structure seen in the right atrium extending to the level of the tricuspid valve concerning for vegetation vs thrombus, mild mitral regurgitation. * Previous Echocardiogram in the office 12/11/2021 revealed EF of 3540 percent, right ventricle normal size and function, PAS pain 33 mmHg, trace to mild mitral regurgitation, moderate aortic regurgitation 02/21/2022 Patient seen and examined at bedside, no acute events overnight. Vital signs are stable. He remains on heparin drip . Awaiting bed transfer to tertiary care center, apparently no beds available at [facility]. PHYSICAL EXAMINATION Vitals reviewed CONSTITUTIONAL: No acute distress HEENT: Head is normocephalic. Mucous membranes of the mouth are moist. CHEST EXAMINATION: Lungs are clear to auscultation. No chest wall tenderness is noted on palpation or with deep breathing. HEART EXAMINATION: Regular rate and rhythm. S1, S2 heard. No gallops or rub. ABDOMEN: Soft, nontender. Positive bowel sounds. EXTREMITIES: No lower extremity edema and no calf tenderness. NEUROLOGIC EXAMINATION: Patient is awake, alert and oriented x3. Left arm weakness. Left facial droop noted. Slurred speech noted. ASSESSMENT Acute ischemic stroke, Left sided weakness, left facial droop, and slurred speech Bilateral pulmonary embolism, saddle pulmonary embolism with right heart strain Right atrium thrombus History of non-STEMI s/p PCI mid LAD and mid to distal LAD on 12/18/20 Ischemic cardiomyopathy EF 35% Diabetes mellitus type 2 Hypertension Hyperlipidemia Tobacco abuse PLAN Vascular surgery and cardiology discussed patient's case and agree patient should be transferred to tertiary center for further evaluation and treatment. Continue current medication regimen Continue IV heparin Further recommendations based on clinical course Nurse practitioner note has been reviewed by physician. Signing provider agrees with the documented findings, assessment, and plan of care. Objective - Vital Signs Vital signs: Vital Signs Temp 97.7 F 02/21/22 08:00 Pulse 76 02/21/22 08:00 Resp 18 02/21/22 08:00 BP 140/80 02/21/22 08:00 Pulse Ox 92 L 02/21/22 08:00 FiO2 Intake & Output 02/20/22 02/21/22 02/21/22 18:59 06:59 18:59 Intake Total 620 493.082 Output Total 350 Balance 620 143.082 Intake: Intake, IV Titration 380 253.082 Amount Azithromycin 500 mg In 250 Sodium Chloride 0.9% 250 ml @ 250 mls/hr IVPB DAILY [facility] Rx#:[id number] Heparin Sod,Pork in 0.45% 80 253.082 NaCl 25,000 unit In 0.45 % NaCl 1 250ml.bag @ 18 UNITS/KG/HR 16.052 mls/hr IV .[id number] [facility] Rx#: [id number] cefTRIAXone 1 gm In 50 Sodium Chloride 0.9% 50 ml @ 100 mls/hr IVPB DAILY [facility] Rx#:[id number] Oral 240 240 Output: Urine 350 Other: Voiding Method Toilet Toilet Urinal Urinal # Voids 1 - Labs CBC & Chem 7: 02/21/22 10:39 02/20/22 07:03 Labs: Abnormal Lab Results - Last 24 Hours (Table) 02/20/22 02/20/22 02/20/22 Range/Units 07:03 07:03 11:47 WBC (3.8-10.6) k/uL RBC (4.30-5.90) m/uL Plt Count (150-450) k/uL Neutrophils # (1.3-7.7) k/uL APTT (22.0-30.0) sec POC Glucose (mg/dL) 251 H (70-110) mg/dL Hemoglobin A1c 8.6 H (0.0-6.0) % Triglycerides 216.00 H (0.00-149.00) mg/dL VLDL Cholesterol, Calc 43.20 H (5.00-40.00) mg/dL Procalcitonin (0.02-0.09) ng/mL 02/20/22 02/20/22 02/20/22 Range/Units 16:53 18:34 18:50 WBC (3.8-10.6) k/uL RBC (4.30-5.90) m/uL Plt Count (150-450) k/uL Neutrophils # (1.3-7.7) k/uL APTT 40.1 H (22.0-30.0) sec POC Glucose (mg/dL) 157 H (70-110) mg/dL Hemoglobin A1c (0.0-6.0) % Triglycerides (0.00-149.00) mg/dL VLDL Cholesterol, Calc (5.00-40.00) mg/dL Procalcitonin 0.34 H (0.02-0.09) ng/mL 02/20/22 02/21/22 02/21/22 Range/Units 19:55 02:40 06:01 WBC (3.8-10.6) k/uL RBC (4.30-5.90) m/uL Plt Count (150-450) k/uL Neutrophils # (1.3-7.7) k/uL APTT 106.1 H* (22.0-30.0) sec POC Glucose (mg/dL) 251 H 200 H (70-110) mg/dL Hemoglobin A1c (0.0-6.0) % Triglycerides (0.00-149.00) mg/dL VLDL Cholesterol, Calc (5.00-40.00) mg/dL Procalcitonin (0.02-0.09) ng/mL 02/21/22 02/21/22 Range/Units 10:39 10:39 WBC 12.5 H (3.8-10.6) k/uL RBC 4.01 L (4.30-5.90) m/uL Plt Count 142 L (150-450) k/uL Neutrophils # 9.8 H (1.3-7.7) k/uL APTT 58.9 H (22.0-30.0) sec POC Glucose (mg/dL) (70-110) mg/dL Hemoglobin A1c (0.0-6.0) % Triglycerides (0.00-149.00) mg/dL VLDL Cholesterol, Calc (5.00-40.00) mg/dL Procalcitonin (0.02-0.09) ng/mL Microbiology - Last 24 Hours (Table) 02/19/22 12:38 Blood Culture - Preliminary Blood No Growth after 24 hours 02/19/22 10:00 Blood Culture - Preliminary Blood No Growth after 24 hours
--- NOTE | 2022-02-21 11:47 | P.PN ---
Subjective Progress Note Date: 02/21/22 The patient is seen at bedside and had CT chest which revealed extensive bilateral pulmonary emboli with saddle embolism and findings of right heart strain. Also has DVT in right lower extremity. Patient is pending to be transferred to tertiary center for further evaluation and treatment. Objective - Vital Signs Vital signs: Vital Signs Temp 97.7 F 02/21/22 08:00 Pulse 76 02/21/22 08:00 Resp 18 02/21/22 08:00 BP 140/80 02/21/22 08:00 Pulse Ox 92 L 02/21/22 08:00 FiO2 Intake & Output 02/20/22 02/21/22 02/21/22 18:59 06:59 18:59 Intake Total 620 493.082 Output Total 350 Balance 620 143.082 Intake: Intake, IV Titration 380 253.082 Amount Azithromycin 500 mg In 250 Sodium Chloride 0.9% 250 ml @ 250 mls/hr IVPB DAILY [facility] Rx#:[id number] Heparin Sod,Pork in 0.45% 80 253.082 NaCl 25,000 unit In 0.45 % NaCl 1 250ml.bag @ 18 UNITS/KG/HR 16.052 mls/hr IV .[id number] [facility] Rx#: [id number] cefTRIAXone 1 gm In 50 Sodium Chloride 0.9% 50 ml @ 100 mls/hr IVPB DAILY [facility] Rx#:[id number] Oral 240 240 Output: Urine 350 Other: Voiding Method Toilet Toilet Urinal Urinal # Voids 1 - Exam GENERAL: The patient is lying in bed and is not in acute distress. NEUROLOGICAL: Higher mental function: The patient is awake, alert, oriented to self, place and time. Patient is following commands. No aphasia and no neglect. Cranial nerves: The pupils are round, equal and reactive to light and accommodation. Visual harris are full to confrontation throughout. Extraocular movement is intact no nystagmus is noted. Facial sensation is normal to touch throughout. The facial strength is moderate to severe left lower weakness. Hearing is normal bilaterally to hand rub. Tongue is midline and moved [id number] without any difficulty. Mild to Moderate dysarthria is noted. Shoulder shrug is normal bilaterally. Motor: The strength is left upper and lower extremity is 4-4+. Otherwise 5 over 5 throughout. Normal tone and bulk. Cerebellum: Normal finger to nose bilaterally. Sensation: Sensation is normal to touch throughout. Reflexes (right/left): 1+ Plantars are mute bilaterally. Some other workup during this hospital visit consisted of: Lipid panel: TG 216, cholestrol 111, LDL 24 and HDL 43. Urine analysis is the urine bacteria is many Palacios virus not detected. Influenza A/B is not detected. CT of the head is reported as no acute intracranial processes. Nonspecific white matter changes including right palacios radiata hypodensity was slightly asymmetric, likely secondary to chronic small vessel ischemic disease consider further nausea with MRI. CT angiography of the head and neck was reported as no significant abnormality. EKG is reported as sinus tachycardia. Left axis deviation. Inferior myocardial infarction probably old. Anteroseptal myocardial infarction. 2D echo is reported as left ventricle ejection fraction of 35-40%. Severe right ventricle dilation. Right ventricle dilation and hypokinesis. and showed a large mobile echogenic structure seen in the right atrium extending to the level of tricuspid valve concerning for vegetation versus thrombus. No evidence of extension into the IVC can be seen in the renal cell cancer. Consider VINNIE to further evaluate if clinically indicated. CT chest which revealed extensive bilateral pulmonary emboli with saddle embolism and findings of right heart strain. Also has DVT in right lower extremity. - Labs CBC & Chem 7: 02/21/22 10:39 02/20/22 07:03 Labs: Abnormal Lab Results - Last 24 Hours (Table) 02/20/22 02/20/22 02/20/22 Range/Units 07:03 07:03 11:47 WBC (3.8-10.6) k/uL RBC (4.30-5.90) m/uL Plt Count (150-450) k/uL Neutrophils # (1.3-7.7) k/uL APTT (22.0-30.0) sec POC Glucose (mg/dL) 251 H (70-110) mg/dL Hemoglobin A1c 8.6 H (0.0-6.0) % Triglycerides 216.00 H (0.00-149.00) mg/dL VLDL Cholesterol, Calc 43.20 H (5.00-40.00) mg/dL Procalcitonin (0.02-0.09) ng/mL 02/20/22 02/20/22 02/20/22 Range/Units 16:53 18:34 18:50 WBC (3.8-10.6) k/uL RBC (4.30-5.90) m/uL Plt Count (150-450) k/uL Neutrophils # (1.3-7.7) k/uL APTT 40.1 H (22.0-30.0) sec POC Glucose (mg/dL) 157 H (70-110) mg/dL Hemoglobin A1c (0.0-6.0) % Triglycerides (0.00-149.00) mg/dL VLDL Cholesterol, Calc (5.00-40.00) mg/dL Procalcitonin 0.34 H (0.02-0.09) ng/mL 02/20/22 02/21/22 02/21/22 Range/Units 19:55 02:40 06:01 WBC (3.8-10.6) k/uL RBC (4.30-5.90) m/uL Plt Count (150-450) k/uL Neutrophils # (1.3-7.7) k/uL APTT 106.1 H* (22.0-30.0) sec POC Glucose (mg/dL) 251 H 200 H (70-110) mg/dL Hemoglobin A1c (0.0-6.0) % Triglycerides (0.00-149.00) mg/dL VLDL Cholesterol, Calc (5.00-40.00) mg/dL Procalcitonin (0.02-0.09) ng/mL 02/21/22 02/21/22 Range/Units 10:39 10:39 WBC 12.5 H (3.8-10.6) k/uL RBC 4.01 L (4.30-5.90) m/uL Plt Count 142 L (150-450) k/uL Neutrophils # 9.8 H (1.3-7.7) k/uL APTT 58.9 H (22.0-30.0) sec POC Glucose (mg/dL) (70-110) mg/dL Hemoglobin A1c (0.0-6.0) % Triglycerides (0.00-149.00) mg/dL VLDL Cholesterol, Calc (5.00-40.00) mg/dL Procalcitonin (0.02-0.09) ng/mL Microbiology - Last 24 Hours (Table) 02/19/22 12:38 Blood Culture - Preliminary Blood No Growth after 24 hours 02/19/22 10:00 Blood Culture - Preliminary Blood No Growth after 24 hours Assessment and Plan Assessment: * Acute ischemic stroke (left sided weakness and facial with dysarthria). Etiology of stroke is embolic. 2D echo showed a large mobile echogenic structure seen in the right atrium extending to the level of tricuspid valve concerning for vegetation versus thrombus. * Large mobile echogenic structure seen in the right atrium * Extensive bilateral pulmonary emboli with saddle embolism and findings of right heart strain on CT chest * DVT in right lower extremity. * Hypercoagulopathy state. * Diabetes mellitus * Hypertension * Hyperlipidemia * History of melanoma and basal cell carcinoma * Tobacco use Plan: CT chest which revealed extensive bilateral pulmonary emboli with saddle embolism and findings of right heart strain. Also has DVT in right lower extremity. Cardiology is consulted. Patient was started on heparin drip by the primary team therefore will discontinue aspirin and I'll will start the patient back on Plavix (since has hx of carduac stent) to avoid the increased risk for bleed from neurological perspective. Continue Lipitor 40 mg daily at bedtime for secondary stroke prophylaxis Pending MRI Brain. Continue neuro checks Cardiac monitoring PT OT and ROBOTIC MAINTENANCE TECHNICIAN are consulted Please avoids any hypotensive episodes. Patient was counseled on tobacco cessation We'll defer the rest of the medical management to primary team For DVT prophylaxis on heparin drip. Condition is very guarded. Patient is pending to be transferred to tertiary center for further evaluation and treatment. The plan is discussed with patient and his who is at bedside. Dr. Philip will start neurology service tomorrow A.M. Time with Patient: Less than 30
[2022-02-21 11:55] LABS: Glucose,Whole Blood 211 mg/dL (70-110)
--- NOTE | 2022-02-21 15:31 | P.PN ---
Subjective Progress Note Date: 02/21/22 Principal diagnosis: weakness He is still with left sided weakness. No cp or sob. No other overnight events. Objective - Vital Signs Vital signs: Vital Signs Temp 97.7 F 02/21/22 08:00 Pulse 80 02/21/22 12:00 Resp 18 02/21/22 12:00 BP 116/71 02/21/22 12:00 Pulse Ox 95 02/21/22 12:00 FiO2 Intake & Output 02/20/22 02/21/22 02/21/22 18:59 06:59 18:59 Intake Total 620 493.082 Output Total 350 Balance 620 143.082 Intake: Intake, IV Titration 380 253.082 Amount Azithromycin 500 mg In 250 Sodium Chloride 0.9% 250 ml @ 250 mls/hr IVPB DAILY [facility] Rx#:[id number] Heparin Sod,Pork in 0.45% 80 253.082 NaCl 25,000 unit In 0.45 % NaCl 1 250ml.bag @ 18 UNITS/KG/HR 16.052 mls/hr IV .[id number] [facility] Rx#: [id number] cefTRIAXone 1 gm In 50 Sodium Chloride 0.9% 50 ml @ 100 mls/hr IVPB DAILY [facility] Rx#:[id number] Oral 240 240 Output: Urine 350 Other: Voiding Method Toilet Toilet Urinal Urinal # Voids 1 - Exam Gen: in no apparent distress, resting comfortably in bed Eyes: PERRL, no scleral injection or icterus HENT: normocephalic, atraumatic, good hearing acuity, moist mucous membranes Neck: no tracheal deviation, full range of motion Resp: Impaired air exchange, breathing comfortably with no accessory muscle use, no tactile fremitus, diffuse wheezing, diminished breath sounds CVS: good distal perfusion x 4, 1+ pitting edema, tachycardic, no appreciable murmurs GI: soft, NTTP, ND, no hepatosplenomegaly : no suprapubic tenderness, no CVAT, cordero catheter not present MSK: no clubbing, no cyanosis, no noted contractures of extremities Skin: no noted rashes, petechiae; temperature of skin is appropriate Neuro: Left upper extremity 4 out of 5 hand director communications, 4 out of 5 motor strength at the elbow and shoulder on both flexion and extension, left-sided facial droop, tongue deviation to the left, symmetric uvula Psych: cooperative, euthymic mood, insight and judgment intact - Labs CBC & Chem 7: 02/21/22 10:39 02/20/22 07:03 Labs: Abnormal Lab Results - Last 24 Hours (Table) 02/20/22 02/20/22 02/20/22 Range/Units 16:53 18:34 18:50 WBC (3.8-10.6) k/uL RBC (4.30-5.90) m/uL Plt Count (150-450) k/uL Neutrophils # (1.3-7.7) k/uL APTT 40.1 H (22.0-30.0) sec POC Glucose (mg/dL) 157 H (70-110) mg/dL Procalcitonin 0.34 H (0.02-0.09) ng/mL 02/20/22 02/21/22 02/21/22 Range/Units 19:55 02:40 06:01 WBC (3.8-10.6) k/uL RBC (4.30-5.90) m/uL Plt Count (150-450) k/uL Neutrophils # (1.3-7.7) k/uL APTT 106.1 H* (22.0-30.0) sec POC Glucose (mg/dL) 251 H 200 H (70-110) mg/dL Procalcitonin (0.02-0.09) ng/mL 02/21/22 02/21/22 02/21/22 Range/Units 10:39 10:39 11:53 WBC 12.5 H (3.8-10.6) k/uL RBC 4.01 L (4.30-5.90) m/uL Plt Count 142 L (150-450) k/uL Neutrophils # 9.8 H (1.3-7.7) k/uL APTT 58.9 H (22.0-30.0) sec POC Glucose (mg/dL) 211 H (70-110) mg/dL Procalcitonin (0.02-0.09) ng/mL Microbiology - Last 24 Hours (Table) 02/19/22 12:38 Blood Culture - Preliminary Blood No Growth after 48 hours 02/19/22 10:00 Blood Culture - Preliminary Blood No Growth after 48 hours Assessment and Plan Plan: Acute hypoxemic respiratory failure sec to saddle PE -D/c abx -DuoNeb's -Negative blood culture -Oxygen as needed--on 5L -Procalcitonin 0.34 Acute stroke -Neurology consulted -plavix, statin -2D echo is reported as left ventricle ejection fraction of 35-40%. Severe right ventricle dilation. Right ventricle dilation and hypokinesis. and showed a large mobile echogenic structure seen in the right atrium extending to the level of tricuspid valve concerning for vegetation versus thrombus. -Neurochecks Saddle PE Right leg DVT CT angiography of the chest, which demonstrated saddle embolus with evidence of right heart strain Heparin gtt CAD Chronic systolic heart failure, ejection fraction 35% Ischemic cardiomyopathy Hypertension Hyperlipidemia Diabetes type 2 COPD without exacerbation Nicotine abuse -Home medications reviewed and reconciled, changes noted above -Continue nebulizers -Low-dose sliding scale insulin -Nicotine cessation counseling provided, NRT upon request Case was discussed with [facility], I was told that patient is currently on the list for transfer, awaiting bed availability. Case was discussed with [facility], I was told there is no capacity to admit the patient at this point. I'm currently trying [facility]. Patient is DO NOT RESUSCITATE/DO NOT INTUBATE DVT prophylaxis covered with heparin 3 times a day
[2022-02-21 16:51] LABS: Glucose,Whole Blood 158 mg/dL (70-110)
--- NOTE | 2022-02-21 17:12 | P.PN ---
Subjective Progress Note Date: 02/21/22 This is a 76-year-old gentleman who presented emergency department because of sudden onset of the left-sided weakness including face. He presented to our emergency department at 8:47 AM today Patient notified the ED nurse that his last normal was 3 AM today and then he won't back to sleep and woke up at 6:45 AM today with left-sided weakness and facial droop. But he notified later that he woke up around 6:45 AM and was doing well then he went downstairs and within 5 minutes he had a sudden left side was weak as well as a was slurring on the left side and drooling on the left side. He felt he was slurring his words He denies any history of stroke. Denies of any numbness any tingling, visual di sturbance. Patient stated that he is on antiplatelet but could not tell me the name but according the EMR he is on Plavix 75 mg daily it does not seem he is on aspirin. Patient denies being on anticoagulation he denies any history of atrial fibrillation or the flutter. Patient stated that he does smoke cigarettes. Denies of any illicit drug use. His initial vitals his blood pressure of 91/68, heart rate of 116, temperature of 97.6 oral pulse ox of 85% on 4 L of the nasal cannula then his systolic blood pressures in the 80s over 40s. He was found to be in acute kidney injury. His initial creatinine was 1.54 and his white cell count was 21 and the patient had a component of melena negative metabolic acidosis. His influenza screen came back negative. His Covid 19 testing came back negative. CAT scan of the brain showed no acute intracranial process and there was some nonspecific white matter changes including the right gannon radiata and evidence of chronic small vessel ischemic changes. CT angiogram of the brain and the neck showed no significant abnormalities. The patient was not given TPA as the patient was found to be outside the window for this treatment. His chest x-ray showed evidence of COPD. His echocardiogram showed an ejection fraction of 35-40%. There is moderate RV hypokinesis and RV pressures were estimated to be within normal limits. There was a large mobile echogenic structure seen in the right H and extending into the level of the tricuspid valve concerning for vegetation or thrombus. No evidence of extension into the IVC. VINNIE was recommended by the marketing lead. No evidence of any pericardial effusion. There is evidence of severe RV dilatation and systolic heart failure. Repeat blood work from today showed a WBC count dropping down to 16.4 with a hemoglobin of 14.1. Platelet count is at 149. The patient's serum bicarb is down to 15 and this is consistent with metabolic acidosis and the sodium levels of 144 and a potassium is at 4.4. Creatinine is normalized and is down to 1.1. LFTs are normal. His UA has been showing plus for glucose and many bacteria. The white cell count is only at 5. The initial pro-calcitonin level is at 0.12. ProBNP elevated at 4063. The patient accordingly was started on antiplatelet agents and the patient was given Plavix 75 mg by mouth daily. The patient was also placed on IV heparin regarding the intracardiac thrombus and given a broad-spectrum empiric antibiotic coverage including combination of Rocephin and Zithromax. Due to concern of this intracardiac thrombus and possibility of pulmonary embolism as the patient was hypoxic, the patient underwent a CT angiogram and the patient was found to have extensive bilateral pulmonary emboli with saddle embolism and evidence of right ventricular strain. There is also background moderate degree of COPD. As mentioned, the patient was started on IV heparin. The patient is seen today 02/21/2022 in follow-up on the selective care unit. He is currently awake and alert in no acute distress. He sitting up in a chair at the bedside. He still has some left-sided facial droop. Continues with some left-sided weakness. Slightly improved today compared to yesterday. No worsening shortness of breath. No chest discomfort. No headache. He is maintaining O2 saturations in the mid 90s on 5 L/m per nasal cannula. Afebrile. Hemodynamically stable. Doppler of the lower extremities did reveal a right lower extremity DVT in the mid popliteal vein and distal popliteal vein. the patient is awaiting transfer to [facility] for possible vascular intervention regarding the saddle embolism and bilateral pulmonary emboli. Remains on a heparin drip. White count 12.5. Hemoglobin 13.1. Platelet count 142. Glucose 158. Objective - Vital Signs Vital signs: Vital Signs Temp 97.7 F 02/21/22 08:00 Pulse 80 02/21/22 12:00 Resp 18 02/21/22 14:00 BP 116/71 02/21/22 12:00 Pulse Ox 95 02/21/22 14:00 FiO2 Intake & Output 02/20/22 02/21/22 02/21/22 18:59 06:59 18:59 Intake Total 620 493.082 Output Total 350 Balance 620 143.082 Intake: Intake, IV Titration 380 253.082 Amount Azithromycin 500 mg In 250 Sodium Chloride 0.9% 250 ml @ 250 mls/hr IVPB DAILY [facility] Rx#:[id number] Heparin Sod,Pork in 0.45% 80 253.082 NaCl 25,000 unit In 0.45 % NaCl 1 250ml.bag @ 18 UNITS/KG/HR 16.052 mls/hr IV .[id number] [facility] Rx#: [id number] cefTRIAXone 1 gm In 50 Sodium Chloride 0.9% 50 ml @ 100 mls/hr IVPB DAILY [facility] Rx#:[id number] Oral 240 240 Output: Urine 350 Other: Voiding Method Toilet Toilet Urinal Urinal # Voids 1 - Exam Gen. appearance: This is a pleasant 76-year-old male patient, calm and comfortable, on 5 L of O2 nasal cannula Head exam was generally normal. There was no scleral icterus or corneal arcus. Mucous membranes were moist. Neck was supple and without jugular venous distension, thyromegaly, or carotid bruits. Carotids were easily palpable bilaterally. There was no adenopathy. Lungs sounds are diminished bilaterally otherwise clear Cardiac exam revealed the PMI to be normally situated and sized. The rhythm was regular and no extrasystoles were noted during several minutes of auscultation. The first and second heart sounds were normal and physiologic splitting of the second heart sound was noted. There were no murmurs, rubs, clicks, or gallops. Abdominal exam revealed normal bowel sounds. The abdomen was soft, non-tender, and without masses, organomegaly, or appreciable enlargement of the abdominal aorta. Examination of the extremities revealed easily palpable radial, femoral and pedal pulses. There was no cyanosis, clubbing or edema. Examination of the skin revealed no evidence of significant rashes, suspicious appearing nevi or other concerning lesions. Neurologically, the patient is alert and awake 3. No aphasia. Following simple commands. He does have left facial weakness, motor function is also reducible left upper and left lower extremity and the motor function is in order of 4 out of 5, motor function on the right is within normal limits. Normal cerebellar functions. Normal sensitivity. Plantars are mute bilaterally. Reflexes are symmetrical. - Labs CBC & Chem 7: 02/21/22 10:39 02/20/22 07:03 Labs: Abnormal Lab Results - Last 24 Hours (Table) 02/20/22 02/20/22 02/20/22 Range/Units 16:53 18:34 18:50 WBC (3.8-10.6) k/uL RBC (4.30-5.90) m/uL Plt Count (150-450) k/uL Neutrophils # (1.3-7.7) k/uL APTT 40.1 H (22.0-30.0) sec POC Glucose (mg/dL) 157 H (70-110) mg/dL Procalcitonin 0.34 H (0.02-0.09) ng/mL 02/20/22 02/21/22 02/21/22 Range/Units 19:55 02:40 06:01 WBC (3.8-10.6) k/uL RBC (4.30-5.90) m/uL Plt Count (150-450) k/uL Neutrophils # (1.3-7.7) k/uL APTT 106.1 H* (22.0-30.0) sec POC Glucose (mg/dL) 251 H 200 H (70-110) mg/dL Procalcitonin (0.02-0.09) ng/mL 02/21/22 02/21/22 02/21/22 Range/Units 10:39 10:39 11:53 WBC 12.5 H (3.8-10.6) k/uL RBC 4.01 L (4.30-5.90) m/uL Plt Count 142 L (150-450) k/uL Neutrophils # 9.8 H (1.3-7.7) k/uL APTT 58.9 H (22.0-30.0) sec POC Glucose (mg/dL) 211 H (70-110) mg/dL Procalcitonin (0.02-0.09) ng/mL 02/21/22 Range/Units 16:50 WBC (3.8-10.6) k/uL RBC (4.30-5.90) m/uL Plt Count (150-450) k/uL Neutrophils # (1.3-7.7) k/uL APTT (22.0-30.0) sec POC Glucose (mg/dL) 158 H (70-110) mg/dL Procalcitonin (0.02-0.09) ng/mL Microbiology - Last 24 Hours (Table) 02/19/22 12:38 Blood Culture - Preliminary Blood No Growth after 48 hours 02/19/22 10:00 Blood Culture - Preliminary Blood No Growth after 48 hours Assessment and Plan Assessment: Acute bilateral pulmonary embolism with saddle embolism and evidence of RV strain and significant pulmonary hypertension. Patient also has a embolic thrombus involving the right atrium as evident on the echocardiogram. There are ventilator systolic pressure was estimated to be 28. The patient has of the dysfunction and the patient also has IV dilatation and hypokinesis and large echogenic structure seen in the right atrium extending into the tricuspid valve most likely a thrombus. No evidence of extension into the IVC. Also, consider possibility of a bacterial vegetation and septic embolism. This is felt to be less likely based on the CAT scan findings. He remains on a heparin drip Acute ischemic stroke and the patient presented with left-sided weakness and left facial weakness and dysarthria. This is most likely an embolic phenomena. Paradoxic embolism cannot be completely excluded. The patient was seen by neurology. The patient was outside the window for thrombolytics and the patient was not offered any thrombolytic therapy. Acute right lower extremity DVT Acute hypoxic respiratory failure currently on 4 L O2 nasal cannula COPD CHF with impaired LV function and ejection fraction of 35% Diabetes mellitus type 2 Hypertension Hyperlipidemia Previous history of melanoma and basal cell carcinoma Smoker Plan: The patient was seen and evaluated Currently stable and on 5 L nasal cannula He remains on heparin drip Awaiting transfer to [facility] for possible intervention Neurology, cardiology, vascular services on the case We will continue to follow I have personally seen and examined the patient, performed the documentation and the assessment and plan as written. Number of minutes spent on the visit: 10. Evaluation that was done along with the nurse practitioner. I agree on the above-mentioned plan. The patient was seen in conjunction with the [facility]. This evaluation was done in more than 20 minutes.
[2022-02-21 18:26] VITALS: BP 113/73; PULSE 78
[2022-02-21 20:02] LABS: Glucose,Whole Blood 165 mg/dL (70-110)
== END 2022-02-21 20:19 | disposition short-term general hospital (02) | DRG 871 ==
LOC: EC 08:47 → 3SCARD 14:11
PROVIDERS: ADMIT Internal Medicine; ATTEND Internal Medicine
DX: A41.9 Sepsis, unspecified organism (principal); I26.92 Saddle embolus of pulmonary artery without acute cor pulmonale; I50.23 Acute on chronic systolic (congestive) heart failure; J96.01 Acute respiratory failure with hypoxia; I63.40 Cerebral infarction due to embolism of unspecified cerebral artery; I82.431 Acute embolism and thrombosis of right popliteal vein; E87.20 Acidosis, unspecified; N17.9 Acute kidney failure, unspecified; I96 Gangrene, not elsewhere classified; G81.94 Hemiplegia, unspecified affecting left nondominant side; I82.441 Acute embolism and thrombosis of right tibial vein; J84.9 Interstitial pulmonary disease, unspecified; N39.0 Urinary tract infection, site not specified; K92.1 Melena; I27.20 Pulmonary hypertension, unspecified; I11.0 Hypertensive heart disease with heart failure; J44.9 Chronic obstructive pulmonary disease, unspecified; E11.9 Type 2 diabetes mellitus without complications; I51.3 Intracardiac thrombosis, not elsewhere classified; Z66 Do not resuscitate; E78.5 Hyperlipidemia, unspecified; I25.10 Atherosclerotic heart disease of native coronary artery without angina pectoris; R29.810 Facial weakness; R47.1 Dysarthria and anarthria; R27.0 Ataxia, unspecified; R29.708 NIHSS score 8; I25.5 Ischemic cardiomyopathy; F17.210 Nicotine dependence, cigarettes, uncomplicated; I08.0 Rheumatic disorders of both mitral and aortic valves; Z20.822 Contact with and (suspected) exposure to COVID-19; Z79.84 Long term (current) use of oral hypoglycemic drugs; Z79.899 Other long term (current) drug therapy; Z79.02 Long term (current) use of antithrombotics/antiplatelets; Z79.51 Long term (current) use of inhaled steroids; Z88.5 Allergy status to narcotic agent; I25.2 Old myocardial infarction; Z95.5 Presence of coronary angioplasty implant and graft
CPT/HCPCS: 36415; 70450; 70496; 70498; 71046; 71275; 80053; 80061; 81001; 83036; 83605; 83735; 83880; 84145; 84443; 84484; 85025; 85610; 85730; 87040; 87502; 87635; 93005; 93306; 93970; 94640; 94760; 96365; 96366; 96375; 99291

== ENCOUNTER 2022-06-01 09:50 | Day surgery (SDC) | payer MEDICARE, BC ==
[2022-05-29 11:44] VITALS: BMI 27.0
[~2022-06-01 09:50] MED LIST changes: +ALPRAZolam 0.25 MG TAB PO PRN; +ALPRAZolam 0.5 MG TAB PO PRN; +ASPIRIN 325 MG TAB PO ONE; +ATORVASTATIN 80 MG TAB PO ONE; -DEXAMETHASONE SOD PHOSPHATE 10 MG/ML 1 ML VIAL IV ONE; +HEPARIN SODIUM,PORCINE 10,000 UNIT in SODIUM CHLORIDE 0.9% 1,000 ML IRRIGATION PRN; +HEPARIN SODIUM,PORCINE 2,500 UNIT in SODIUM CHLORIDE 0.9% 250 ML IRRIGATION PRN; -HEPARIN SODIUM,PORCINE 5,000 UNIT/ML 1 ML VIAL SQ ONE; -HYDROmorphone 1 MG/ML 1 ML SYRINGE IVP PRN; -LACTATED RINGERS 1,000 ML IV SCH; -LIDOCAINE 1% 20 ML VIAL (10MG/ML) FOR IV START INTRADERMA PRN; -MIDAZOLAM 2 MG/2 ML VIAL IV PRN; +NITROGLYCERIN SL TABS 0.4 MG TAB SUBLINGUAL PRN; -ONDANSETRON 4 MG/2 ML VIAL IVP ONE; -Pre Op ABX Message 1 EACH MISC MISCELLANE ONE; -SCOPOLAMINE 1.5MG/72HR PATCH TRANSDERM ONE; +SODIUM CHLORIDE 0.9% 1,000 ML in EMPTY BAG 1 BAG IV SCH
[2022-06-01] MEDS ORDERED: ASPIRIN 81 MG ONE (10:24)
[2022-06-01 10:43] LABS: Glucose,Whole Blood 178 mg/dL (70-110)
[2022-06-01 11:06] VITALS: TEMP 94
[2022-06-01] MEDS ORDERED: fentaNYL (PF) 50 MCG/ML 2 ML AMP IV ONE (12:49)
[2022-06-01] MEDS ORDERED: MIDAZOLAM 2 MG/2 ML VIAL IV ONE (12:49)
[2022-06-01] MEDS ORDERED: LIDOCAINE 1% INJ 10MG/ML (30 ML VIAL-PF) SQ ONE (12:55)
[2022-06-01] MEDS ORDERED: SODIUM CHLORIDE 0.9% 50 ML with ceFAZolin 2,000 MG IV ONE ×2 (12:55)
[2022-06-01] MEDS ORDERED: HEPARIN SODIUM 1,000 UN/ML (10ML VL) IV ONE (13:04)
[2022-06-01] MEDS ORDERED: IOPAMIDOL-370 100ML BTL INJ ONE (13:41)
[2022-06-01 17:49] VITALS: BP 108/56; PULSE 67; RESP 18
--- NOTE | 2022-06-04 10:45 | P.PCN ---
Date of Procedure: 06/01/22 Description of Procedure: PROCEDURES PERFORMED: 1. Intracardiac echocardiography using an 8-Telugu AcuNav ultrasound catheter 2. RFV access under direct U/S visualization x 2 3. Right atrial and pulmonary angiography OPERATORS: 1. 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 SEDATION: Under my direct supervision the patient was administered moderate conscious sedation with Versed and Fentanyl for a total of 49 minutes. DATE OF PROCEDURE: 06/01/2022 (late entry) PRPOCEDURE SUMMARY: Prior to sedation, the risks, benefits and alternatives of the procedure were discussed with the patient in detail and all questions were answered to the patient's satisfaction. Both verbal and written consents were obtained. The patient was transported to the cardiac catheterization suite and prepped and draped in the usual sterile fashion for access to the right groin. The patient received conscious sedation in the form of Versed and Fentanyl intravenously. 2% lidocaine was infused into the right groin for local anesthesia. Then, under direct ultrasound visualization, right femoral vein was accessed using micropuncture technique and two 8-Telugu 11 cm sheaths were placed into the right femoral vein. The 8-Telugu AcuNav ICE ultrasound catheter was then advanced through into the right atrium where intracardiac echocardiography was performed. ICE ULTRASOUND: This demonstrated no evidence of pericardial effusion. It demonstrated normal appearing aortic and mitral valves. Overall the left ventricular function and chamber size appeared within normal limits. The LV function appeared preserved with no significant wall motion abnormalities. The tricuspid valve appeared normal and the RV appeared normal in size. The visualized portions of the left atrium and left atrial appendage demonstrated no significant abnormalities. There was no PFO noted by ICE. There was somewhat delayed shunting of bubbles occuring approximately 2-3 seconds after infusing more consistent with a pulmonary AVM. After initial images were obtained with the ICE catheter, a 6-Telugu Multipurpose and then FR4 catheter were used to attempt to cross the septum. There was initial thought that the PFO was just not visible and multiple attempts were made however unsuccessful and no obvious PFO was noted. Bubble study was performed 3 times with no shunting noted across the septum and levels noted to cross into the left atrium somewhat late approximately 2-3 seconds later. This appeared more consistent with a pulmonary AVM. Using the pigtail catheter angiography was performed including some pulmonary angiography however unable to fully assess pulmonary branches to identify any significant pulmonary AVM. Given no PFO, the procedure was aborted. At this point, 8-Telugu ICE catheter and the sheaths were removed A Z stitch was placed to achieve hemostasis. The patient was transferred to the [facility] in stable condition. COMPLICATIONS: None. 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 RECOMMENDATIONS: Given no PFO or septal defect, would recommend continued medical therapy with anticoagulation.
== END 2022-06-01 17:43 | disposition home or self-care (01) ==
LOC: CATHCVL 09:50
PROVIDERS: ATTEND Internal Medicine
DX: Q21.12 Patent foramen ovale (principal); Q21.0 Ventricular septal defect; Z86.73 Personal history of transient ischemic attack (TIA), and cerebral infarction without residual deficits; E11.9 Type 2 diabetes mellitus without complications; I10 Essential (primary) hypertension; I25.10 Atherosclerotic heart disease of native coronary artery without angina pectoris; I25.2 Old myocardial infarction; E78.5 Hyperlipidemia, unspecified; Z86.711 Personal history of pulmonary embolism; I25.5 Ischemic cardiomyopathy; F17.210 Nicotine dependence, cigarettes, uncomplicated; Z79.01 Long term (current) use of anticoagulants; Z79.02 Long term (current) use of antithrombotics/antiplatelets; Z79.82 Long term (current) use of aspirin; Z79.899 Other long term (current) drug therapy; Z79.84 Long term (current) use of oral hypoglycemic drugs; Z88.8 Allergy status to other drugs, medicaments and biological substances
CPT/HCPCS: 93451; 99152; 99153 ×2; 93799; 93662; 86900; 86901; 86850; C1769 ×4; C1894; C1759; J2250; J0690; J2001; J3010; J1644; Q9967

== ENCOUNTER 2023-06-02 12:48 | Inpatient (IN) | payer MEDICARE, BC ==
--- NOTE | 2023-06-02 13:04 | ED ---
General Adult HPI <Ayden Elizalde - Last Filed: 06/02/23 13:12> - General Source: family Mode of arrival: ambulatory Limitations: no limitations <Elly Grider - Last Filed: 06/02/23 16:29> <Rosa Hernandez - Last Filed: 06/02/23 19:26> - General Chief complaint: Upper Respiratory Infection Stated complaint: SOB, cough, low oxygen level Time Seen by Provider: 06/02/23 12:55 - History of Present Illness Initial comments: Quick note-is a 77-year-old male with a past medical history of COPD and diabete s who presents to the ED with a chief complaint of cough. States he went to an urgent care this morning where his oxygen saturation was below 90, and they prompted him to visit the ER. Patient states this cough started 2 days ago and has worsened. Cough is nonproductive in nature. Patient denies any known fevers at home, chest pain, headaches, runny nose, congestion. Patient states that he uses an at home breathing treatment 3 times a week for his COPD but is unaware of what the medication is. Denies current steroid use. (Elly Grider) Patient also has a history of a PE for which he is on Eliquis (Rosa Hernandez) - Related Data Home Medications Medication Instructions Recorded Confirmed Empagliflozin [Jardiance] 25 mg PO DAILY 10/19/16 06/01/22 Latanoprost Ophth [Xalatan 0.005%] 1 drop BOTH EYES HS 10/19/16 06/01/22 Alogliptin Benzoate [Alogliptin] 25 mg PO DAILY 12/18/20 05/29/22 Brimonidine Tartrate [Alphagan P 1 drops BOTH EYES BID 12/18/20 06/01/22 0.2% Ophth Soln] Atorvastatin Calcium [Lipitor] 40 mg PO HS 02/19/22 06/01/22 metFORMIN HCL ER [Glucophage XR] 500 mg PO QAM 02/19/22 06/01/22 rOPINIRole HCL [Requip] 1 mg PO HS 02/19/22 06/01/22 Acetaminophen/Diphenhydramine 2 tab PO HS 05/29/22 06/01/22 [Tylenol PM 500-25mg] Apixaban [Eliquis] 5 mg PO BID 05/29/22 06/01/22 Aspirin [Adult Low Dose Aspirin EC] 81 mg PO DAILY 05/29/22 06/01/22 Budesonide-Formot 160-4.5 Mcg 2 puff INHALATION BID 05/29/22 06/01/22 [Symbicort 160-4.5 Mcg Inhaler] Metoprolol Succinate [Metoprolol 25 mg PO DAILY 05/29/22 06/01/22 Succinate ER] Sacubitril/Valsartan [Entresto 24 1 each PO BID 05/29/22 06/01/22 mg-26 mg Tablet] metFORMIN HCL [Glucophage] 1,000 mg PO HS 05/29/22 06/01/22 Previous Rx's Medication Instructions Recorded Spironolactone [Aldactone] 25 mg PO DAILY 30 Days #30 tab 12/20/20 Allergies Allergy/AdvReac Type Severity Reaction Status Date / Time oxycodone [From OxyContin] AdvReac Nausea & Verified 06/02/23 14:14 Vomiting LUCY Inhibitors Allergy Cough Uncoded 06/02/23 14:14 Review of Systems ROS Other: All systems not noted in ROS Statement are negative. <Ayden Elizalde - Last Filed: 06/02/23 13:12> ROS Other: All systems not noted in ROS Statement are negative. <Elly Grider - Last Filed: 06/02/23 16:29> ROS Other: All systems not noted in ROS Statement are negative. <Rosa Hernandez - Last Filed: 06/02/23 19:26> ROS Statement: Those systems with pertinent positive or pertinent negative responses have been documented in the HPI. Past Medical History Past Medical History: Cancer, CVA/TIA, Diabetes Mellitus, Eye Disorder, Hyperlipidemia, Hypertension, Myocardial Infarction ([place]), Pulmonary Embolus ([place]) Additional Past Medical History / Comment(s): See Dr Mcatrhur's H&P. 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 Ongoing SOB, no O2 needed. Hx Melanoma & Basal Cell cancer on scalp and eyelid. Bilateral Glaucoma. 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 Last Myocardial Infarction Date:: 11/2020 History of Any Multi-Drug Resistant Organisms: None Reported Past Surgical History: Cholecystectomy, Heart Catheterization With Stent, Tonsillectomy Additional Past Surgical History / Comment(s): 35 cysts removed, large cyst removed from armpit, colonoscopy, 2 cardiac stents. Past Anesthesia/Blood Transfusion Reactions: No Reported Reaction Date of Last Stent Placement:: 11/2020 Past Psychological History: No Psychological Hx Reported Smoking Status: Current every day smoker Past Alcohol Use History: None Reported Additional Past Alcohol Use History / Comment(s): Smoker of 1 PPD since his 20's, down to 1/2 ppd now. Past Drug Use History: None Reported - Past Family History Father Family Medical History: Cancer Additional Family Medical History / Comment(s): Stomach cancer. Mother Family Medical History: No Reported History <Elly Grider - Last Filed: 06/02/23 16:29> General Exam <Elly Grider - Last Filed: 06/02/23 16:29> - General Exam Comments Initial Comments: Visual Physical Exam Vital signs reviewed General: Well-appearing, nontoxic, no acute distress. Head: Normocephalic, atraumatic Eyes: PERRLA, EOMI ENT: Airway patent Chest: Nonlabored breathing Skin: No visual rash, normal skin tone Neuro: Alert and oriented 3 Musculoskeletal: No gross abnormalities (Elly Grider) Course <Elly Grider - Last Filed: 06/02/23 16:29> Vital Signs 06/02/23 06/02/23 06/02/23 14:11 15:21 15:23 Temperature 100.0 F H Pulse Rate 91 88 Respiratory 18 19 20 Rate Blood Pressure 96/63 98/67 O2 Sat by Pulse 93 L 91 L Oximetry 06/02/23 06/02/23 06/02/23 15:26 15:34 16:04 Temperature Pulse Rate 87 71 Respiratory 18 16 Rate Blood Pressure 105/64 O2 Sat by Pulse 89 L 94 L Oximetry 06/02/23 06/02/23 06/02/23 16:12 16:25 17:15 Temperature 100.2 F H Pulse Rate 71 92 76 Respiratory 16 18 18 Rate Blood Pressure 81/54 88/57 O2 Sat by Pulse 92 L 94 L Oximetry 06/02/23 18:27 Temperature 98.9 F Pulse Rate 67 Respiratory 18 Rate Blood Pressure 90/58 O2 Sat by Pulse 94 L Oximetry - Reevaluation(s) Reevaluation #1: Patient requested breathing treatment. 06/02/23 15:45 (Elly Grider) Reevaluation #2: 's temperature and vitals were rechecked after Tylenol and breathing treatment. Patient is now on 2 L O2 satting in the low 90s. Patient's blood pressure is hypotensive. 06/02/23 16:29 (Elly Grider) Medical Decision Making <Elly Grider - Last Filed: 06/02/23 16:29> - Lab Data Result diagrams: 06/02/23 17:15 06/02/23 17:15 <Rosa Hernandez - Last Filed: 06/02/23 19:26> - Medical Decision Making I completed the quick note portion of this chart signed Elly Grider PA-C Was pt. sent in by a medical professional or institution ([facility], [employer], urgent care, hospital, or long term...) When possible be specific @ -Was advised to visit ED from urgent care. Did you speak to anyone other than the patient for history (EMS, parent, family, police, friend...)? What history was obtained from this source @ -[No] Did you review nursing and triage notes (agree or disagree)? Why? @ -[I reviewed and agree with nursing and triage notes] Were old charts reviewed (outside hosp., previous admission, EMS record, old EKG, old radiological studies, urgent care reports/EKG's, long term records)? Report findings @ -[No old charts were reviewed] Differential Diagnosis (chest pain, altered mental status, abdominal pain women, abdominal pain men, vaginal bleeding, weakness, fever, dyspnea, syncope, headache, dizziness, GI bleed, back pain, seizure, CVA, palpatations, mental health, musculoskeletal)? @ -Differential Fever: Pneumonia, viral URI, endocarditis, myocarditis, pericarditis, otitis, sinusitis, peritonsillar Abscess, retropharyngeal Abscess, epiglottitis, peritonitis, appendicitis, Gloria cystitis, diverticulitis, hepatitis, colitis, UTI, PID, TOA, pyelonephritis, prostatitis, epididymitis, meningitis, encephalitis, pulmonary embolism, CVA, thyroid storm, pancreatitis, adrenal crisis, cavernous sinus thrombosis, this is not meant to be an all-inclusive list. EKG interpreted by me (3pts min.). @ -[None] X-rays interpreted by me (1pt min.). @ -[chest X-ray revealed right basilar airspace opacities correlate for pneumonia.] CT interpreted by me (1pt min.). @ -[None done] U/S interpreted by me (1pt. min.). @ -[None done] What testing was considered but not performed or refused? (CT, X-rays, U/S, labs)? Why? @ -[None] What meds were considered but not given or refused? Why? @ -[None] Did you discuss the management of the patient with other professionals (professionals i.e. , PA, POLICE JUSTICE, lab, RT, psych nurse, school social worker, director statistical programming, teacher, community chest officer, family independence case manager)? Give summary @ -[No] Was smoking cessation discussed for >3mins.? @ -[No] Was critical care preformed (if so, how long)? @ -[No] Were there social determinants of health that impacted care today? How? (Homelessness, low income, unemployed, alcoholism, drug addiction, transportation, low edu. Level, literacy, decrease access to med. care, fpc, rehab)? @ -[No] Was there de-escalation of care discussed even if they declined (Discuss DNR or withdrawal of care, Hospice)? DNR status @ -[No] What co-morbidities impacted this encounter? (DM, HTN, Smoking, COPD, CAD, Cancer, CVA, ARF, Chemo, Hep., AIDS, mental health diagnosis, sleep apnea, morbid obesity)? @ -HTN, COPD Was patient admitted / discharged? Hospital course, mention meds given and route, prescriptions, significant lab abnormalities, going to OR and other pertinent info. @ -[77-year-old male presents to the ED with chief complaint of cough. Tested positive for influenza A. Patient's vitals on triage revealed 101.1, patient given Tylenol. X-ray revealed basilar airspace opacities. ] Undiagnosed new problem with uncertain prognosis? @ -[No] Drug Therapy requiring intensive monitoring for toxicity (Heparin, Nitro, Insul in, Cardizem)? @ -[No] Were any procedures done? @ -[No] Diagnosis/symptom? @ -Influenza A Acute, or Chronic, or Acute on Chronic? @ -Acute Uncomplicated (without systemic symptoms) or Complicated (systemic symptoms)? @ -Uncomplicated Side effects of treatment? @ -[No] Exacerbation, Progression, or Severe Exacerbation? @ -[No] Poses a threat to life or bodily function? How? (Chest pain, [place], [place], pneumonia, PE, COPD, DKA, ARF, appy, cholecystitis, CVA, Diverticulitis, Homicidal, Suicidal, threat to staff... and all critical care pts) @ -[No] (Elly Grider) Patient was signed out to me pending laboratory studies. Patient remains on 2 L of oxygen and is saturating 94%. Blood pressure is improved with 1 L of IV saline. Patient is given a second liter. He states that he has normal blood pressures at baseline. States he normally runs 100/60. Laboratory studies de monstrate labs are within normal limits. I did recommend admission due to his oxygen requirement. Patient was agreeable. Antibiotics and Tamiflu initiated. Patient is pending a bed on the floor in stable condition (Rosa Hernandez) - Lab Data Lab Results 06/02/23 06/02/23 06/02/23 Range/Units 14:16 17:15 17:15 WBC 6.4 (3.8-10.6) k/uL RBC 4.65 (4.30-5.90) m/uL Hgb 15.5 (13.0-17.5) gm/dL Hct 46.5 (39.0-53.0) % MCV 100.1 H (80.0-100.0) fL MCH 33.4 (25.0-35.0) pg MCHC 33.4 (31.0-37.0) g/dL RDW 13.9 (11.5-15.5) % Plt Count 148 L (150-450) k/uL MPV 8.7 Neutrophils % 77 % Lymphocytes % 8 % Monocytes % 10 % Eosinophils % 1 % Basophils % 1 % Neutrophils # 5.0 (1.3-7.7) k/uL Lymphocytes # 0.5 L (1.0-4.8) k/uL Monocytes # 0.7 (0-1.0) k/uL Eosinophils # 0.0 (0-0.7) k/uL Basophils # 0.0 (0-0.2) k/uL Sodium 135 L (137-145) mmol/L Potassium 5.4 H (3.5-5.1) mmol/L Chloride 108 H (98-107) mmol/L Carbon Dioxide 20 L (22-30) mmol/L Anion Gap 7 mmol/L BUN 25 H (9-20) mg/dL Creatinine 1.08 (0.66-1.25) mg/dL Est GFR (CKD-EPI)AfAm 76 (>60 ml/min/1.73 sqM) Est GFR (CKD-EPI)NonAf 66 (>60 ml/min/1.73 sqM) Glucose 122 H (74-99) mg/dL Plasma Lactic Acid Geo (0.7-2.0) mmol/L Calcium 8.7 (8.4-10.2) mg/dL Total Bilirubin 1.0 (0.2-1.3) mg/dL AST 35 (17-59) U/L ALT 24 (4-49) U/L Alkaline Phosphatase 48 (38-126) U/L Total Protein 7.3 (6.3-8.2) g/dL Albumin 4.2 (3.5-5.0) g/dL Influenza Type A (PCR) Detected A (Not Detectd) Influenza Type B (PCR) Not Detected (Not Detectd) RSV (PCR) Not Detected (Not Detectd) SARS-CoV-2 (PCR) Not Detected (Not Detectd) 06/02/23 Range/Units 17:15 WBC (3.8-10.6) k/uL RBC (4.30-5.90) m/uL Hgb (13.0-17.5) gm/dL Hct (39.0-53.0) % MCV (80.0-100.0) fL MCH (25.0-35.0) pg MCHC (31.0-37.0) g/dL RDW (11.5-15.5) % Plt Count (150-450) k/uL MPV Neutrophils % % Lymphocytes % % Monocytes % % Eosinophils % % Basophils % % Neutrophils # (1.3-7.7) k/uL Lymphocytes # (1.0-4.8) k/uL Monocytes # (0-1.0) k/uL Eosinophils # (0-0.7) k/uL Basophils # (0-0.2) k/uL Sodium (137-145) mmol/L Potassium (3.5-5.1) mmol/L Chloride (98-107) mmol/L Carbon Dioxide (22-30) mmol/L Anion Gap mmol/L BUN (9-20) mg/dL Creatinine (0.66-1.25) mg/dL Est GFR (CKD-EPI)AfAm (>60 ml/min/1.73 sqM) Est GFR (CKD-EPI)NonAf (>60 ml/min/1.73 sqM) Glucose (74-99) mg/dL Plasma Lactic Acid Geo 1.4 (0.7-2.0) mmol/L Calcium (8.4-10.2) mg/dL Total Bilirubin (0.2-1.3) mg/dL AST (17-59) U/L ALT (4-49) U/L Alkaline Phosphatase (38-126) U/L Total Protein (6.3-8.2) g/dL Albumin (3.5-5.0) g/dL Influenza Type A (PCR) (Not Detectd) Influenza Type B (PCR) (Not Detectd) RSV (PCR) (Not Detectd) SARS-CoV-2 (PCR) (Not Detectd) Disposition <Ayden Elizalde - Last Filed: 06/02/23 13:12> Is patient prescribed a controlled substance at d/c from ED?: No <Elly Grider - Last Filed: 06/02/23 16:29> Is patient prescribed a controlled substance at d/c from ED?: No Time of Disposition: 18:43 Decision to Admit Reason: Admit from EC Decision Date: 06/02/23 Decision Time: 18:44 <Rosa Hernandez - Last Filed: 06/02/23 19:26> Clinical Impression: Influenza A, Pneumonia, Hypoxia, Hypotension Narrative: Please return to the Emergency Department if symptoms worsen or any other concerns. (Elly Grider) Disposition: ADMITTED IP TO THIS [facility] Referrals: Ebenezer Guerrero MD [Primary Care Provider] - 1-2 days
--- NOTE | 2023-06-02 13:56 | XR ---
EXAMINATION TYPE: XR chest 2V DATE OF EXAM: 06/02/2023 1:48 PM CLINICAL INDICATION:Male, 77 years old with history of cough; [facility] COMPARISON: Chest radiographs from 02/19/2022 TECHNIQUE: XR chest 2V Frontal and lateral views of the chest. FINDINGS: Lungs/Pleura: Multiple contiguous represent airspace opacities. There is no evidence of pleural effus ion, focal consolidation, or pneumothorax. Pulmonary vascularity: Unremarkable. Heart/mediastinum: Cardiomediastinal silhouette is unremarkable. Musculoskeletal: No acute osseous pathology. IMPRESSION: Right basilar airspace opacities correlate for pneumonia.e
[2023-06-02] MEDS: ACETAMINOPHEN TAB 325 MG TAB PO STA (15:34)
[2023-06-02] MEDS: IPRATROPIUM-ALBUTEROL 3 ML NEB INHALATION STA (16:04)
[2023-06-02] MEDS: SODIUM CHLORIDE 0.9% 1,000 ML IV STA (17:00)
[2023-06-02 17:59] LABS: Basophils % (A) 1 %; Eosinophils % (A) 1 %; HCT 46.5 % (39.0-53.0); HGB 15.5 gm/dL (13.0-17.5); Lymphocytes # (A) 0.5 k/uL (1.0-4.8); Lymphocytes % (A) 8 %; MCH 33.4 pg (25.0-35.0); MCHC 33.4 g/dL (31.0-37.0); MCV 100.1 fL (80.0-100.0); Mean Platelet Volume 8.7; Monocytes # (A) 0.7 k/uL (0-1.0); Monocytes % (A) 10 %; Neutrophils % (A) 77 %; Platelet Count 148 k/uL (150-450); RBC 4.65 m/uL (4.30-5.90); RDW 13.9 % (11.5-15.5); WBC 6.4 k/uL (3.8-10.6)
[2023-06-02 18:11] LABS: ALT 24 U/L (4-49); AST 35 U/L (17-59); African American GFR (CKD) 76 (>60 ml/min/1.73 sqM); Albumin 4.2 g/dL (3.5-5.0); Alkaline Phosphatase 48 U/L (38-126); Anion Gap 7 mmol/L; Blood Urea Nitrogen 25 mg/dL (9-20); Calcium 8.7 mg/dL (8.4-10.2); Carbon Dioxide 20 mmol/L (22-30); Chloride 108 mmol/L (98-107); Glucose 122 mg/dL (74-99); Non-African American GFR(CKD) 66 (>60 ml/min/1.73 sqM); Sodium 135 mmol/L (137-145); Total Protein 7.3 g/dL (6.3-8.2)
[2023-06-02 18:13] LABS: Potassium 5.4 mmol/L (3.5-5.1)
[2023-06-02] MEDS ORDERED: PNEUMONIA PROTOCOL UTILIZED 1 EACH MISC PO PRN (18:44)
[2023-06-02] MEDS: OSELTAMIVIR 75 MG CAP PO SCH (21:55)
[2023-06-02] MEDS: AZITHROMYCIN 500 MG in SODIUM CHLORIDE 0.9% 250 ML IVPB STA (22:36)
[2023-06-03] MEDS ORDERED: DEXTROSE 50% SYRINGE 50 ML IVP PRN ×2 (04:23)
--- NOTE | 2023-06-03 04:25 | P.HPIM ---
History of Present Illness H&P Date: 06/02/23 Chief Complaint: Coughing 77 year-old male with coronary artery disease diabetes mellitus Patient has been experiencing upper respiratory infection symptoms describing some productive cough no hemoptysis no fevers no chills no chest pain no shortness of breath denies any muscle aches denies any nausea vomiting or abdominal pain he denies any known sick contact or recent travel. Patient went to an urgent care this morning they found him hypoxic for which they sent him to the ER for further evaluation. At time of my evaluation patient seems to be fine denies any chest pain or trouble breathing denies any coughing he is eager to go home. Upon further testing in the ED was found to have influenza A positive he was admitted for monitoring overnight Patient denies illicit drugs or heavy alcohol he admits to some smoking Patient does admit to history of venous thromboembolism for which he takes Eliquis for history of PE review of systems Pertinent positives as noted in HPI. All other systems were reviewed and are negative on exam Constitutional: No acute distress, conversant, pleasant Eyes: Anicteric sclerae, moist conjunctiva, Pupils equal round reactive to light ENMT: NC/AT Oropharynx clear, no erythema, or exudates Neck: Supple, no masses, or JVD No carotid bruits No thyromegaly Lungs: Diminished breath sounds throughout Clear to percussion Normal respiratory effort, no accessory muscle use Cardiovascular: Heart regular in rate and rhythm, No murmurs, gallops, or rubs No peripheral edema Abdominal: Soft Nontender, no guarding, rebound or rigidity Abdomen moving with respiration Normoactive bowel sounds Extremities: No digital cyanosis No clubbing Pedal pulses intact and symmetrical Radial pulses intact and symmetrical No calf tenderness Psychiatric: Alert and oriented to person, place and time Appropriate affect fair judgement Neuro Muscles Strength 5/5 in all 4 extremities Sensation to light touch grossly present throughout Cranial nerves II-XII grossly intact Lymphatics: no palpable cervical or supraclavicular lymph nodes Past Medical History Past Medical History: Cancer, CVA/TIA, Diabetes Mellitus, Eye Disorder, Hyperlipidemia, Hypertension, Myocardial Infarction ([place]), Pulmonary Embolus ([place]) Additional Past Medical History / Comment(s): See Dr Mcarthur's H&P. 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 Ongoing SOB, no O2 needed. Hx Melanoma & Basal Cell cancer on scalp and eyelid. Bilateral Glaucoma. 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 Last Myocardial Infarction Date:: 11/2020 History of Any Multi-Drug Resistant Organisms: None Reported Past Surgical History: Cholecystectomy, Heart Catheterization With Stent, Tonsillectomy Additional Past Surgical History / Comment(s): 35 cysts removed, large cyst removed from armpit, colonoscopy, 2 cardiac stents. Past Anesthesia/Blood Transfusion Reactions: No Reported Reaction Date of Last Stent Placement:: 11/2020 Past Psychological History: No Psychological Hx Reported Smoking Status: Current every day smoker Past Alcohol Use History: None Reported Additional Past Alcohol Use History / Comment(s): Smoker of 1 PPD since his 20's, down to 1/2 ppd now. Past Drug Use History: None Reported - Past Family History Father Family Medical History: Cancer Additional Family Medical History / Comment(s): Stomach cancer. Mother Family Medical History: No Reported History Medications and Allergies Home Medications Medication Instructions Recorded Confirmed Type Empagliflozin [Jardiance] 25 mg PO DAILY 10/19/16 06/02/23 History Latanoprost Ophth [Xalatan 0.005%] 1 drop BOTH EYES HS 10/19/16 06/02/23 History Alogliptin Benzoate [Alogliptin] 25 mg PO DAILY 12/18/20 06/02/23 History Brimonidine Tartrate [Alphagan P 1 drop BOTH EYES BID 12/18/20 06/02/23 History 0.2% Ophth Soln] Spironolactone [Aldactone] 25 mg PO DAILY 30 Days #30 tab 12/20/20 06/02/23 Rx Atorvastatin Calcium [Lipitor] 40 mg PO HS 02/19/22 06/02/23 History metFORMIN HCL ER [Glucophage XR] 500 mg PO DAILY 02/19/22 06/02/23 History rOPINIRole HCL [Requip] 1 mg PO HS 02/19/22 06/02/23 History Acetaminophen/Diphenhydramine 2 tab PO HS 05/29/22 06/02/23 History [Tylenol PM 500-25mg] Apixaban [Eliquis] 5 mg PO BID 05/29/22 06/02/23 History Aspirin [Adult Low Dose Aspirin EC] 81 mg PO DAILY 05/29/22 06/02/23 History Metoprolol Succinate [Metoprolol 25 mg PO DAILY 05/29/22 06/02/23 History Succinate ER] Sacubitril/Valsartan [Entresto 24 1 tab PO BID 05/29/22 06/02/23 History mg-26 mg Tablet] Cinnamon Bark [Cinnamon] 1,000 mg PO DAILY 06/02/23 06/02/23 History Fluticasone Propion/Salmeterol 1 puff INHALATION RT-BID PRN 06/02/23 06/02/23 History [Wixela 250-50 Inhub] metFORMIN HCL ER [Glucophage XR] 1,000 mg PO HS 06/02/23 06/02/23 History Allergies Allergy/AdvReac Type Severity Reaction Status Date / Time oxycodone [From OxyContin] AdvReac Nausea & Verified 06/02/23 21:24 Vomiting LUCY Inhibitors Allergy Cough Uncoded 06/02/23 14:14 Physical Exam Vitals: Vital Signs Temp Pulse Resp BP Pulse Ox 06/02/23 20:59 81 26 H 91 L 06/02/23 19:52 94 L 06/02/23 18:27 98.9 F 67 18 90/58 94 L 06/02/23 17:15 76 18 88/57 94 L 06/02/23 16:25 100.2 F H 92 18 81/54 92 L 06/02/23 16:12 71 16 06/02/23 16:04 71 16 06/02/23 15:34 94 L 06/02/23 15:26 87 18 105/64 89 L 06/02/23 15:23 20 06/02/23 15:21 88 19 98/67 91 L 06/02/23 14:11 100.0 F H 91 18 96/63 93 L Intake and Output 06/02/23 06/02/23 06/03/23 14:59 22:59 06:59 Other: Weight 85.275 kg Results CBC & Chem 7: 06/02/23 17:15 06/02/23 17:15 Labs: Abnormal Lab Results - Last 24 Hours (Table) 06/02/23 06/02/23 06/02/23 Range/Units 14:16 17:15 17:15 MCV 100.1 H (80.0-100.0) fL Plt Count 148 L (150-450) k/uL Lymphocytes # 0.5 L (1.0-4.8) k/uL Sodium 135 L (137-145) mmol/L Potassium 5.4 H (3.5-5.1) mmol/L Chloride 108 H (98-107) mmol/L Carbon Dioxide 20 L (22-30) mmol/L BUN 25 H (9-20) mg/dL Glucose 122 H (74-99) mg/dL Influenza Type A (PCR) Detected A (Not Detectd) Assessment and Plan Assessment: 77-year-old male with diabetes mellitus, history of venous thromboembolism coming into the ED for productive cough and hypoxemia I discussed the case with ED doctor and accepted the admission for influenza A positive with acute hypoxic respiratory failure with anticipated length of stay more than 2 midnights Acute hypoxic respiratory failure with oxygen saturation dropping down to 92% on room air Influenza A pneumonitis COPD exacerbation Oral systemic steroids with prednisone 40 mg p.o. daily Tamiflu 75 mg p.o. twice daily Symptomatic control of coughing with Tessalon Perles 100 mg 3 times daily DuoNeb every 4 hours as needed Supportive care Monitor vital signs Influenza A positive patient is not vaccinated White count 6.4 hemoglobin 15.5 Renal function unremarkable sodium 135 potassium 5.4 BUN 25 creatinine 1 Patient received one-time dose of antibiotic azithromycin Rocephin in the ED . continue to monitor off antibiotic Chest x-ray showed right basilar airspace opacity Chronic conditions History of venous thromboembolism he takes Eliquis for PE Coronary artery disease continue aspirin and statin and metoprolol, Entresto and Aldactone Diabetes mellitus insulin sliding scale Full code DVT prophylaxis on Eliquis for history of venous thromboembolism GI prophylaxis Protonix 40 mg p.o. daily
[2023-06-03 07:44] LABS: Glucose,Whole Blood 141 mg/dL (70-110)
[2023-06-03] MEDS: INSULIN ASPART (NovoLOG) 100 UNIT/ML VIAL SQ SCH (07:44)
[2023-06-03] MEDS: predniSONE 20 MG TAB PO SCH (07:59)
[2023-06-03] MEDS: METOPROLOL SUCCINATE (ER) 25 MG TAB.ER.24H PO SCH (08:00)
[2023-06-03] MEDS: SPIRONOLACTONE 25 MG TAB PO SCH (08:00)
[2023-06-03] MEDS: APIXABAN 5 MG TAB PO SCH (08:00)
[2023-06-03] MEDS: ASPIRIN 81 MG PO SCH (08:00)
[2023-06-03] MEDS: IPRATROPIUM-ALBUTEROL 3 ML NEB INHALATION PRN (08:33)
--- NOTE | 2023-06-03 08:56 | XR ---
EXAMINATION TYPE: XR chest 2V DATE OF EXAM: 06/03/2023 COMPARISON: 06/02/2023 HISTORY: 77-year-old male pneumonia, respiratory distress TECHNIQUE: PA and lateral views FINDINGS: Heart normal size. Mildly tortuous thoracic aorta with atherosclerotic arch calcifications. Hyperinfl ation. Patchy opacity mid and lower lungs, right greater than left persists. No pleural effusion. IMPRESSION: COPD with continued patchy bilateral lower lung opacities, right greater than left.
[2023-06-03] MEDS ORDERED: BENZONATATE 100 MG CAP PO PRN (09:00)
[2023-06-03] MEDS ORDERED: AZITHROMYCIN 500 MG TAB PO SCH (09:00)
[2023-06-03] MEDS: SACUBITRIL/VALSARTAN 24 MG-26 MG TABLET PO SCH (09:08)
[2023-06-03] MEDS: PANTOPRAZOLE 40 MG TABLET PO SCH (09:08)
[2023-06-03 10:01] LABS: African American GFR (CKD) 78 (>60 ml/min/1.73 sqM); Anion Gap 7 mmol/L; Blood Urea Nitrogen 23 mg/dL (9-20); Calcium 8.4 mg/dL (8.4-10.2); Carbon Dioxide 22 mmol/L (22-30); Chloride 108 mmol/L (98-107); Glucose 129 mg/dL (74-99); Non-African American GFR(CKD) 67 (>60 ml/min/1.73 sqM); Potassium 4.4 mmol/L (3.5-5.1); Sodium 137 mmol/L (137-145)
[2023-06-03 12:27] LABS: Glucose,Whole Blood 182 mg/dL (70-110)
[2023-06-03] MEDS: AZITHROMYCIN 500 MG TAB PO SCH (12:45)
[2023-06-03] MEDS: methylPREDNISolone SOD SUCCI 125 MG/2 ML VIAL IV SCH (12:46)
--- NOTE | 2023-06-03 13:11 | P.CNPUL ---
History of Present Illness Consult date: 06/03/23 Requesting physician: Zafar Rahman Reason for consult: dyspnea, COPD, abnormal CXR/CT Chief complaint: Shortness of breath, cough, congestion History of present illness: This is a 77-year-old male patient with a known history of diabetes mellitus, hypertension, congestive heart failure, CVA/TIA, hyperlipidemia, pulmonary embolism anticoagulated with Eliquis, coronary artery disease with previous stent placements, Melanoma and basal cell skin cancers, history of agent orange exposure during the [place] War, chronic and ongoing tobacco dependence. He presented to the emergency room yesterday with a 3-day history of increasing shortness of breath, cough and congestion. Chest x-ray does reveal basilar airspace opacities concerning for pneumonia. White count 6.4. Hemoglobin 15.5. Platelets 148. Sodium 137. Potassium 4.4. Bicarb 22. BUN 23. Creatinine 1.07. Glucose 129. Viral screen is positive for influenza A. He is seen today in consultation in the emergency department. Currently sitting up in a stretcher. Awake and alert in no acute distress. He does have a loose nonproductive cough. He is maintaining O2 saturations in the low 90s on 4 L/min per nasal cannula. Afebrile. Hemodynamically stable. Review of Systems REVIEW OF SYSTEMS: CONSTITUTIONAL: Denies any recent significant weight loss or weight gain. EYES: Denies change in vision. EARS, NOSE, MOUTH, THROAT: Denies headaches, denies sore throat. CARDIOVASCULAR: Denies chest pain, palpitations or syncopal episodes. RESPIRATORY: Positive for shortness of breath, cough, congestion no hemoptysis. GASTROINTESTINAL: Denies change in appetite, denies abdominal pain GENITOURINARY: Denies hematuria, denies infections. MUSKULOSKELETAL: Denies pain, denies swelling. INTEGUMENTARY: Denies rash, denies eczema. NEUROLOGICAL: Denies recent memory loss, no recent seizure activity. PSYCHIATRIC: Denies anxiety, denies depression. HEMATOLOGIC/LYMPHATIC: Denies anemia, denies enlarged lymph nodes. Past Medical History Past Medical History: Cancer, CVA/TIA, Diabetes Mellitus, Eye Disorder, Hyperlipidemia, Hypertension, Myocardial Infarction ([place]), Pulmonary Embolus ([place]) Additional Past Medical History / Comment(s): See Dr Mcarthur's H&P. 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 Ongoing SOB, no O2 needed. Hx Melanoma & Basal Cell cancer on scalp and eyelid. Bilateral Glaucoma. Sprayed with Agent [place] when he was in the service during the War. Last Myocardial Infarction Date:: 11/2020 History of Any Multi-Drug Resistant Organisms: None Reported Past Surgical History: Cholecystectomy, Heart Catheterization With Stent, Tonsillectomy Additional Past Surgical History / Comment(s): 35 cysts removed, large cyst removed from armpit, colonoscopy, 2 cardiac stents. Past Anesthesia/Blood Transfusion Reactions: No Reported Reaction Date of Last Stent Placement:: 11/2020 Past Psychological History: No Psychological Hx Reported Smoking Status: Current every day smoker Past Alcohol Use History: None Reported Additional Past Alcohol Use History / Comment(s): Smoker of 1 PPD since his 20's, down to 1/2 ppd now. Past Drug Use History: None Reported - Past Family History Father Family Medical History: Cancer Additional Family Medical History / Comment(s): Stomach cancer. Mother Family Medical History: No Reported History Medications and Allergies Home Medications Medication Instructions Recorded Confirmed Type Empagliflozin [Jardiance] 25 mg PO DAILY 10/19/16 06/02/23 History Latanoprost Ophth [Xalatan 0.005%] 1 drop BOTH EYES HS 10/19/16 06/02/23 History Alogliptin Benzoate [Alogliptin] 25 mg PO DAILY 12/18/20 06/02/23 History Brimonidine Tartrate [Alphagan P 1 drop BOTH EYES BID 12/18/20 06/02/23 History 0.2% Ophth Soln] Spironolactone [Aldactone] 25 mg PO DAILY 30 Days #30 tab 12/20/20 06/02/23 Rx Atorvastatin Calcium [Lipitor] 40 mg PO HS 02/19/22 06/02/23 History metFORMIN HCL ER [Glucophage XR] 500 mg PO DAILY 02/19/22 06/02/23 History rOPINIRole HCL [Requip] 1 mg PO HS 02/19/22 06/02/23 History Acetaminophen/Diphenhydramine 2 tab PO HS 05/29/22 06/02/23 History [Tylenol PM 500-25mg] Apixaban [Eliquis] 5 mg PO BID 05/29/22 06/02/23 History Aspirin [Adult Low Dose Aspirin EC] 81 mg PO DAILY 05/29/22 06/02/23 History Metoprolol Succinate [Metoprolol 25 mg PO DAILY 05/29/22 06/02/23 History Succinate ER] Sacubitril/Valsartan [Entresto 24 1 tab PO BID 05/29/22 06/02/23 History mg-26 mg Tablet] Cinnamon Bark [Cinnamon] 1,000 mg PO DAILY 06/02/23 06/02/23 History Fluticasone Propion/Salmeterol 1 puff INHALATION RT-BID PRN 06/02/23 06/02/23 History [Wixela 250-50 Inhub] metFORMIN HCL ER [Glucophage XR] 1,000 mg PO HS 06/02/23 06/02/23 History Allergies Allergy/AdvReac Type Severity Reaction Status Date / Time oxycodone [From OxyContin] AdvReac Nausea & Verified 06/02/23 21:24 Vomiting LUCY Inhibitors Allergy Cough Uncoded 06/02/23 14:14 Physical Exam Vitals: Vital Signs Temp Pulse Pulse Resp BP BP Pulse Ox 06/03/23 08:44 81 06/03/23 08:34 79 92 L 06/03/23 08:06 98.7 F 73 22 122/72 92 L 06/03/23 06:05 76 20 104/68 100 06/03/23 03:05 80 22 114/72 93 L 06/02/23 23:15 77 20 113/69 92 L 06/02/23 20:59 81 26 H 91 L 06/02/23 19:52 94 L 06/02/23 18:27 98.9 F 67 18 90/58 94 L 06/02/23 17:15 76 18 88/57 94 L 06/02/23 16:25 100.2 F H 92 18 81/54 92 L 06/02/23 16:12 71 16 06/02/23 16:04 71 16 06/02/23 15:34 94 L 06/02/23 15:26 87 18 105/64 89 L 06/02/23 15:23 20 06/02/23 15:21 88 19 98/67 91 L 06/02/23 14:11 100.0 F H 91 18 96/63 93 L GENERAL EXAM: Alert, pleasant 77-year-old male, on 4 L nasal cannula, in no apparent distress. HEAD: Normocephalic. EYES: Normal reaction of pupils, equal size. NOSE: Clear with pink turbinates. THROAT: No erythema or exudates. NECK: No masses, no JVD. CHEST: No chest wall deformity. LUNGS: Equal air entry with bilateral scattered rhonchi, end expiratory wheeze, diminished. CVS: S1 and S2 normal with no audible murmur, regular rhythm. ABDOMEN: No hepatosplenomegaly, normal bowel sounds, no guarding or rigidity. SPINE: No scoliosis or deformity SKIN: No rashes CENTRAL NERVOUS SYSTEM: No focal deficits, tone is normal in all 4 extremities. EXTREMITIES: There is no peripheral edema. No clubbing, no cyanosis. Peripheral pulses are intact. Results - Laboratory Findings CBC and BMP: 06/02/23 17:15 06/03/23 08:48 Abnormal lab findings: Abnormal Labs 06/02/23 06/02/23 06/02/23 14:16 17:15 17:15 MCV 100.1 H Plt Count 148 L Lymphocytes # 0.5 L Sodium 135 L Potassium 5.4 H Chloride 108 H Carbon Dioxide 20 L BUN 25 H Glucose 122 H POC Glucose (mg/dL) Influenza Type A (PCR) Detected A 06/03/23 06/03/23 06/03/23 07:43 08:48 12:25 MCV Plt Count Lymphocytes # Sodium Potassium Chloride 108 H Carbon Dioxide BUN 23 H Glucose 129 H POC Glucose (mg/dL) 141 H 182 H Influenza Type A (PCR) - Diagnostic Findings Chest x-ray: image reviewed Assessment and Plan Assessment: Acute hypoxemic respiratory failure secondary to an acute exacerbation of chronic obstructive pulmonary disease complicated by suspected community- acquired pneumonia and influenza A Acute bilateral community-acquired pneumonia Acute influenza A infection History of pulmonary embolism anticoagulated with Eliquis History of coronary disease with previous stent placements Hypertension Hyperlipidemia Diabetes mellitus Chronic and ongoing tobacco dependence of greater than 50 years History of melanoma History of agent orange exposure while in [place] Plan: The patient was seen and evaluated Chest x-rays, labs and medications reviewed Continue ceftriaxone and azithromycin Continue bronchodilators and steroids Continue Tamiflu Educated regarding the importance of smoking cessation NicoDerm patch will be offered We will continue to follow and make further recommendations based on his clinical status I have personally seen and examined the patient, performed the documentation and the assessment and plan as written. Number of minutes spent on the visit: 20.
--- NOTE | 2023-06-03 15:05 | P.PN ---
Subjective Progress Note Date: 06/03/23 77 year old M with PMH of COPD, CAD, HTN, HLD, CVA, h/o melanoma and basal cell CA, systolic CHF with EF 35-40%, smoker, DM, Glaucoma, RLS, h/o PE presents to the ED from urgent care. He was found to be hypoxic. Reported symptoms include productive cough. In the ED he underwent extensive evaluation. BP 96/63 HR 91 T 100F RR 18 89% on RA. CBC, Coag panel, CMP performed significant for MCV 100.1, Plt 148, Na 135, K 5.4, Cl 108, bicarb 20, glu 122. Lactic acid 1.4. Flu +. CXR right basilar airspace opacity. Patient was started on Rocephin/Azithromycin, bolus of NS, DuoNeb treatment and admitted for further management. 3 Patient was seen and examined. Sleeping comfortably in prone position. at bedside all questions answered. BMP Cl 108, BUN 23, glu 129. CXR shows bilateral infiltrates. General: non toxic, no distress, appears at stated age, sleeping comfortably. Derm: warm, dry Head: atraumatic, normocephalic, symmetric Eyes: EOMI, no lid lag, anicteric sclera Mouth: no lip lesion, mucus membranes moist Cardiovascular: Good distal perfusion in all 4 extremities Lungs: Breathing comfortably, no accessory muscle use Ext: no gross muscle atrophy, no edema, no contractures Neuro: no focal neuro deficits Psych: Alert, oriented, appropriate affect Based on my assessment of this patient, this patient meets a high complexity level of care. Patient has an acute diagnosis of sepsis due to Influenza that poses a threat to life or bodily function. Sepsis likely due to below: Obtain BCx, Sputum Cx, Legionella Ag. Caution with hydration given EF of 35-40%. Acute hyoxic respiratory failure: Supplemental O2 to maintain O2 saturation > 92%. Pulmonary consult. Influenza A pneumonitis: Tamiflu 75 mg PO BID. Acute COPD exacerbation: Prednisone switched to SoluMedrol 60 mg IV Q6H. DuoNeb QID PRN for SOB/wheezing. Pulmicort BID. Hypekalemia: Hemolyzed. Repeat. Prerenal azotemia: Likely due to dehydration. 1L bolus in the ED. Macrocytosis: Obtain B12, Folate. Chronic conditions: CAD, HTN, HLD, CVA, h/o melanoma and basal cell CA, systolic CHF with EF 35-40%, smoker, DM, Glaucoma, RLS, h/o PE CODE STATUS: FULL CODE DVT Prophylaxis: Eliquis GI Prophylaxis: Protonix. Designated medical POA if patient is not able to make medical decisions for themselves: I have reviewed the following independent beauty consultant notes: Pulmonary note. I have reviewed the results of the following tests: BMP. I have discussed the care of this patient with the following independent historian: , RN. I have independently interpreted the following test below: CXR. Objective - Vital Signs Vital signs: Vital Signs Temp 98.7 F 06/03/23 08:06 Pulse 73 06/03/23 08:06 Resp 22 06/03/23 08:06 BP 122/72 06/03/23 08:06 Pulse Ox 92 L 06/03/23 08:06 FiO2 Intake & Output 06/02/23 06/03/23 06/03/23 18:59 06:59 18:59 Weight 85.275 kg - Labs CBC & Chem 7: 06/02/23 17:15 06/03/23 08:48 Labs: Abnormal Lab Results - Last 24 Hours (Table) 06/02/23 06/02/23 06/02/23 Range/Units 14:16 17:15 17:15 MCV 100.1 H (80.0-100.0) fL Plt Count 148 L (150-450) k/uL Lymphocytes # 0.5 L (1.0-4.8) k/uL Sodium 135 L (137-145) mmol/L Potassium 5.4 H (3.5-5.1) mmol/L Chloride 108 H (98-107) mmol/L Carbon Dioxide 20 L (22-30) mmol/L BUN 25 H (9-20) mg/dL Glucose 122 H (74-99) mg/dL POC Glucose (mg/dL) (70-110) mg/dL Influenza Type A (PCR) Detected A (Not Detectd) 06/03/23 Range/Units 07:43 MCV (80.0-100.0) fL Plt Count (150-450) k/uL Lymphocytes # (1.0-4.8) k/uL Sodium (137-145) mmol/L Potassium (3.5-5.1) mmol/L Chloride (98-107) mmol/L Carbon Dioxide (22-30) mmol/L BUN (9-20) mg/dL Glucose (74-99) mg/dL POC Glucose (mg/dL) 141 H (70-110) mg/dL Influenza Type A (PCR) (Not Detectd)
[2023-06-03 17:46] LABS: Glucose,Whole Blood 210 mg/dL (70-110)
[2023-06-03] MEDS: BUDESONIDE 1 MG/2 ML NEBU INHALATION SCH (19:31)
[2023-06-03] MEDS: FORMOTEROL FUMARATE 20 MCG/2 ML NEBU INHALATION SCH (19:31)
[2023-06-03 21:00] LABS: Glucose,Whole Blood 248 mg/dL (70-110)
[2023-06-03] MEDS: ATORVASTATIN 40 MG TAB PO SCH (21:14)
[2023-06-04] MEDS: IPRATROPIUM-ALBUTEROL 3 ML NEB INHALATION SCH (08:20)
[2023-06-04] MEDS: NICOTINE 21MG/24HR PATCH TRANSDERM SCH (09:00)
[2023-06-04 09:34] LABS: HCT 42.5 % (39.0-53.0); HGB 13.9 gm/dL (13.0-17.5); MCH 33.9 pg (25.0-35.0); MCHC 32.6 g/dL (31.0-37.0); Macrocytosis Slight; Mean Platelet Volume 9.2; Platelet Count 124 k/uL (150-450); RBC 4.09 m/uL (4.30-5.90); RDW 13.8 % (11.5-15.5); WBC 5.9 k/uL (3.8-10.6)
[2023-06-04 09:41] LABS: ALT 20 U/L (4-49); AST 26 U/L (17-59); African American GFR (CKD) 75 (>60 ml/min/1.73 sqM); Albumin 3.6 g/dL (3.5-5.0); Alkaline Phosphatase 56 U/L (38-126); Anion Gap 7 mmol/L; Blood Urea Nitrogen 27 mg/dL (9-20); Calcium 8.6 mg/dL (8.4-10.2); Carbon Dioxide 21 mmol/L (22-30); Chloride 111 mmol/L (98-107); Glucose 170 mg/dL (74-99); Magnesium 2.2 mg/dL (1.6-2.3); Non-African American GFR(CKD) 65 (>60 ml/min/1.73 sqM); Potassium 4.8 mmol/L (3.5-5.1); Sodium 139 mmol/L (137-145); Total Bilirubin 0.5 mg/dL (0.2-1.3); Total Protein 6.5 g/dL (6.3-8.2)
--- NOTE | 2023-06-04 13:49 | P.PN ---
Subjective Progress Note Date: 06/04/23 This is a 77-year-old male patient with a known history of diabetes mellitus, hypertension, congestive heart failure, CVA/TIA, hyperlipidemia, pulmonary embolism anticoagulated with Eliquis, coronary artery disease with previous stent placements, Melanoma and basal cell skin cancers, history of agent orange exposure during the [place] War, chronic and ongoing tobacco dependence. He presented to the emergency room yesterday with a 3-day history of increasing shortness of breath, cough and congestion. Chest x-ray does reveal basilar airspace opacities concerning for pneumonia. White count 6.4. Hemoglobin 15.5. Platelets 148. Sodium 137. Potassium 4.4. Bicarb 22. BUN 23. Creatinine 1.07. Glucose 129. Viral screen is positive for influenza A. He is seen today in consultation in the emergency department. Currently sitting up in a stretcher. Awake and alert in no acute distress. He does have a loose nonproductive cough. He is maintaining O2 saturations in the low 90s on 4 L/min per nasal cannula. Afebrile. Hemodynamically stable. The patient is seen today June 04, 2023 in follow-up in the emergency department. He is currently resting on a stretcher. Awake and alert in no acute distress. Feeling a bit better today compared to yesterday. Maintaining O2 saturations in the mid 90s on 2 L nasal cannula. He is afebrile. Hemodynamically stable. Blood cultures reveal no growth to date. Count 5.9. Hemoglobin 13.9. Platelets 124. Sodium 139. Potassium 4.8. Bicarb 21. BUN 27. Creatinine 1.09. Glucose 170. He remains on DuoNeb ventilations, Pulmicort and performing scintillations, Solu-Medrol. Continued on Tamiflu. Abimael Derm patch in place. Anticoagulated with Eliquis. Remains on antibiotics in the form of ceftriaxone and azithromycin. Objective - Vital Signs Vital signs: Vital Signs Temp 98.0 F 06/04/23 00:00 Pulse 61 06/04/23 12:02 Resp 16 06/04/23 12:02 BP 89/64 06/04/23 08:00 Pulse Ox 87 L 06/04/23 12:47 FiO2 Intake & Output 06/03/23 06/04/23 06/04/23 18:59 06:59 18:59 Output Total 575 250 350 Balance -575 -250 350 Output: Urine 575 250 350 Other: Voiding Method Urinal # Voids 1 - Exam GENERAL EXAM: Alert, 77-year-old male, on 3 L nasal cannula, in no apparent distress. HEAD: Normocephalic. EYES: Normal reaction of pupils, equal size. NOSE: Clear with pink turbinates. THROAT: No erythema or exudates. NECK: No masses, no JVD. CHEST: No chest wall deformity. LUNGS: Equal air entry with bilateral scattered rhonchi, end expiratory wheeze, diminished. CVS: S1 and S2 normal with no audible murmur, regular rhythm. ABDOMEN: No hepatosplenomegaly, normal bowel sounds, no guarding or rigidity. SPINE: No scoliosis or deformity SKIN: No rashes CENTRAL NERVOUS SYSTEM: No focal deficits, tone is normal in all 4 extremities. EXTREMITIES: There is no peripheral edema. No clubbing, no cyanosis. Peripheral pulses are intact. - Labs CBC & Chem 7: 06/04/23 06:53 06/04/23 06:53 Labs: Abnormal Lab Results - Last 24 Hours (Table) 06/03/23 06/03/23 06/04/23 Range/Units 17:45 20:58 06:53 RBC (4.30-5.90) m/uL MCV (80.0-100.0) fL Plt Count (150-450) k/uL Chloride (98-107) mmol/L Carbon Dioxide (22-30) mmol/L BUN (9-20) mg/dL Glucose (74-99) mg/dL POC Glucose (mg/dL) 210 H 248 H (70-110) mg/dL Hemoglobin A1c 7.4 H (<=6.0) % 06/04/23 06/04/23 Range/Units 06:53 06:53 RBC 4.09 L (4.30-5.90) m/uL MCV 104.0 H (80.0-100.0) fL Plt Count 124 L (150-450) k/uL Chloride 111 H (98-107) mmol/L Carbon Dioxide 21 L (22-30) mmol/L BUN 27 H (9-20) mg/dL Glucose 170 H (74-99) mg/dL POC Glucose (mg/dL) (70-110) mg/dL Hemoglobin A1c (<=6.0) % Microbiology - Last 24 Hours (Table) 06/02/23 21:30 Blood Culture - Preliminary Blood 06/02/23 21:15 Blood Culture - Preliminary Blood Assessment and Plan Assessment: Acute hypoxemic respiratory failure secondary to an acute exacerbation of chronic obstructive pulmonary disease complicated by suspected community- acquired pneumonia and influenza A Acute bilateral community-acquired pneumonia, remains on ceftriaxone and azithromycin Acute influenza A infection, remains on Tamiflu History of pulmonary embolism, anticoagulated with Eliquis History of coronary disease with previous stent placements Hypertension Hyperlipidemia Diabetes mellitus Chronic and ongoing tobacco dependence of greater than 50 years History of melanoma History of agent orange exposure while in [place] Plan: The patient was seen and evaluated Labs and medications reviewed Continue Tamiflu, antibiotics, bronchodilators and steroids Again educated regarding the importance of smoking cessation NicoDerm patch will be offered We will continue to follow I have personally seen and examined the patient, performed the documentation and the assessment and plan as written. Number of minutes spent on the visit: 10.
--- NOTE | 2023-06-04 16:23 | P.PN ---
Subjective Progress Note Date: 06/04/23 Hospital course: Patient is a very pleasant 77-year-old male with a past medical history of CAD with stent, hypertension, hyperlipidemia, CVA with residual speech deficits and left-sided weakness, COPD with continued nicotine dependence, previous PE, glaucoma, and melanoma and basal cell cancer status post removal. He presented to the hospital on 06/02/2023 with a chief complaint of cough and reports of hypoxia. Patient was sent from [facility] where he initially presented for a cough and was sent to the emergency department for low oxygen saturation. Upon arrival to the emergency department patient underwent full evaluation. Initial vital signs show blood pressure 96/63, heart rate 91, respiratory rate 18, temp 100.0 F orally and SpO2 of 93% on room air. Shortly after arrival patient desaturated down to 89% on room air and was placed on 2 L O2 via nasal cannula increasing SpO2 to 94%. Chest x-ray was completed showing right basilar airspace opacities consistent with pneumonia. Labs were completed and reviewed. CBC was unremarkable. BMP revealed sodium 135, chloride 108, chloride 20, and elevated BUN of 25. Potassium was also slightly elevated at 5.4 but was a hemolyzed specimen. Lactic acid normal findings at 1.4. COVID PCR and RSV were negative. Influenza A was positive. Patient was admitted under our services with consultation to pulmonology. A repeat chest x-ray was completed 06/03/2023 showing COPD with continued patchy bilateral lower lung opacities right greater than left. Physical exam: Vital signs reviewed and stable. General: Nontoxic, no distress and appears stated age. Derm: Skin warm and dry, normal coloration for ethnicity. Head: Atraumatic, normocephalic and symmetric. Eyes: EOMs intact, no lid lag, and anicteric sclera Mouth: no lip lesions, mucus membranes moist Cardiovascular: regular rate and rhythm with normal S1S2, no murmur, positive posterior tibial pulses bilaterally, and cap refill < 2 seconds. Lungs: Respirations even, regular, and unlabored. Lungs CTA bilaterally, no rhonchi, no rales, no wheezing, and no accessory muscle usage. Abdominal: soft, nontender to palpation, no guarding, no appreciable organomegaly Ext: ROM intact. No gross muscle atrophy, no edema, no contractures Neuro: Speech clear, face symmetrical and CN II-XII grossly intact with no noted focal neuro deficits Psych: Alert and oriented to person, place, time, and situation. Appropriate and pleasant affect. Assessment and Plan of Care: Acute COPD exacerbation Community acquired pneumonia Acute respiratory failure with hypoxia secondary to above Sepsis upon arrival secondary to above -Oxygenation to be administered and titrated as needed to maintain SPO2 equal to or greater than 92% -Telemetry monitoring. -Monitor pulse-oximetry -Duonebs scheduled 4 times daily and as needed for SOB and/or wheezing -Incentive Spirometry -Steroids: Solu-Medrol 60 mg IVP every 6 hours -Tamiflu 75 mg twice daily day 3 of 5 -Pulmonology started patient empirically on azithromycin 500 mg daily x 3 days -Continue with Pulmicort 1 mg inhalation twice daily and Perforomist 20 mcg inhalation twice daily -Pulmonology following, reviewed documentation in chart. -Urine Legionella negative. CAD with previous stenting Hypertension Hyperlipidemia History of CVA with speech deficits and left-sided weakness -Continue daily medication regimen with aspirin 81 mg daily, atorvastatin 40 mg nightly, metoprolol 25 mg daily, Entresto 24 mg - 26 mg tablet twice daily and Aldactone 25 mg daily. History of pulmonary emboli -Continue Eliquis 5 mg twice daily. Data and imaging reviewed: -Morning labs reviewed. CBC showing mild thrombocytopenia with platelet count of 124. BMP revealing elevated chloride of 111, bicarb 21, and anion gap of 7 with elevated BUN of 27. Blood glucose 170. Hemoglobin A1c 7.4%. Magnesium normal findings at 2.2. Liver profile unremarkable. Vitamin B12 319. Folate 5.70. Urine Legionella negative. -Vital signs reviewed. Blood pressure 94/61, heart rate 16, respiratory rate 57, and SpO2 of 95% on 4 L O2. CODE STATUS: Full code DVT prophylaxis: Eliquis Anticipated discharge date: Clinical course to determine Anticipated discharge place: Clinical course to determine Patient was seen independently by Nurse Pracitioner. This document was prepared using [employer] dictation software. Please allow for errors in painter helper sign, while rare they do occur. Mookie Ferreira NP rendered care for this patient independently, reviewed the findings and plan as documented in the note above. I did not physically speak with or examine the patient on this date. Objective - Vital Signs Vital signs: Vital Signs Temp 98.0 F 06/04/23 00:00 Pulse 57 L 03/05/24 06:25 Resp 16 06/04/23 06:25 BP 94/61 06/04/23 06:25 Pulse Ox 95 06/04/23 06:25 FiO2 Intake & Output 06/03/23 06/04/23 06/04/23 18:59 06:59 18:59 Output Total 575 250 Balance -575 -250 Output: Urine 575 250 Other: Voiding Method Urinal # Voids 1 - Labs CBC & Chem 7: 06/05/23 05:51 06/05/23 05:51 Labs: Abnormal Lab Results - Last 24 Hours (Table) 06/03/23 06/03/23 06/03/23 Range/Units 08:48 12:25 17:45 Chloride 108 H (98-107) mmol/L BUN 23 H (9-20) mg/dL Glucose 129 H (74-99) mg/dL POC Glucose (mg/dL) 182 H 210 H (70-110) mg/dL 06/03/23 Range/Units 20:58 Chloride (98-107) mmol/L BUN (9-20) mg/dL Glucose (74-99) mg/dL POC Glucose (mg/dL) 248 H (70-110) mg/dL
[2023-06-04 16:57] LABS: Glucose,Whole Blood 310 mg/dL (70-110)
[2023-06-04 20:55] LABS: Glucose,Whole Blood 240 mg/dL (70-110)
[2023-06-05 06:05] LABS: Glucose,Whole Blood 186 mg/dL (70-110)
[2023-06-05 08:34] LABS: HCT 39.5 % (39.6-50.0); HGB 13.5 g/dL (13.0-17.0); MCH 33.2 pg (27.0-32.0); MCHC 34.2 g/dL (32.0-37.0); MCV 97.1 FL (80.0-97.0); Mean Platelet Volume 11.2 FL (9.5-12.2); NRBC Per 100 WBC 0 X 10*3/uL (0.00-0.01); Platelet Count 141 X 10*3/uL (140-440); RBC 4.07 X 10*6/uL (4.40-5.60); RDW 14.6 % (11.5-14.5); WBC 10.92 X 10*3/uL (4.50-10.00)
[2023-06-05 08:46] LABS: ALT 17 U/L (10-49); AST 19 U/L (14-35); Albumin 3.5 g/dL (3.8-4.9); Albumin/Globulin Ratio 1.46 Ratio (1.60-3.17); Alkaline Phosphatase 45 U/L (41-126); BUN/Creat Ratio 24.36 Ratio (12.00-20.00); Blood Urea Nitrogen 26.8 mg/dL (9.0-27.0); Calcium 8.2 mg/dL (8.7-10.3); Carbon Dioxide 17.7 mmol/L (21.6-31.8); Chloride 108 mmol/L (96-109); Globulin 2.4 g/dL (1.6-3.3); Glucose 199 mg/dL (70-110); Magnesium 2.3 mg/dL (1.5-2.4); Potassium 4.7 mmol/L (3.5-5.5); Sodium 137 mmol/L (135-145); Total Bilirubin 0.3 mg/dL (0.3-1.2); Total Protein 5.9 g/dL (6.2-8.2)
[2023-06-05 11:51] LABS: Glucose,Whole Blood 243 mg/dL (70-110)
--- NOTE | 2023-06-05 14:27 | P.PN ---
Subjective Progress Note Date: 06/05/23 This is a 77-year-old male patient with a known history of diabetes mellitus, hypertension, congestive heart failure, CVA/TIA, hyperlipidemia, pulmonary embolism anticoagulated with Eliquis, coronary artery disease with previous stent placements, Melanoma and basal cell skin cancers, history of agent orange exposure during the [place] War, chronic and ongoing tobacco dependence. He presented to the emergency room yesterday with a 3-day history of increasing shortness of breath, cough and congestion. Chest x-ray does reveal basilar airspace opacities concerning for pneumonia. White count 6.4. Hemoglobin 15.5. Platelets 148. Sodium 137. Potassium 4.4. Bicarb 22. BUN 23. Creatinine 1.07. Glucose 129. Viral screen is positive for influenza A. He is seen today in consultation in the emergency department. Currently sitting up in a stretcher. Awake and alert in no acute distress. He does have a loose nonproductive cough. He is maintaining O2 saturations in the low 90s on 4 L/min per nasal cannula. Afebrile. Hemodynamically stable. The patient is seen today June 04, 2023 in follow-up in the emergency department. He is currently resting on a stretcher. Awake and alert in no acute distress. Feeling a bit better today compared to yesterday. Maintaining O2 saturations in the mid 90s on 2 L nasal cannula. He is afebrile. Hemodynamically stable. Blood cultures reveal no growth to date. Count 5.9. Hemoglobin 13.9. Platelets 124. Sodium 139. Potassium 4.8. Bicarb 21. BUN 27. Creatinine 1.09. Glucose 170. He remains on DuoNeb ventilations, Pulmicort and performing scintillations, Solu-Medrol. Continued on Tamiflu. Abimael Derm patch in place. Anticoagulated with Eliquis. Remains on antibiotics in the form of ceftriaxone and azithromycin. The patient is seen today June 05, 2023 in follow-up in the on the regular medical floor. He is currently sitting up in bed. Awake and alert in no acute distress. Breathing easier today compared to yesterday. Less cough and congestion. He is maintaining O2 saturations in the 90s on 2 L/min per nasal cannula. He is continued on Tamiflu. Continued on antibiotics. He remains on bronchodilators and steroids. Anticoagulated with Eliquis. NicoDerm patch in place. Blood cultures revealed no growth. White count 10.9. Hemoglobin 13.5. Platelets 141. Sodium 137. Potassium 3.7. Bicarb 18. BUN 27. Creatinine 1.1. Glucose 199. Objective - Vital Signs Vital signs: Vital Signs Temp 97.4 F L 06/05/23 07:50 Pulse 64 06/05/23 12:05 Resp 16 06/05/23 07:50 BP 102/50 06/05/23 08:48 Pulse Ox 90 L 06/05/23 07:50 FiO2 Intake & Output 06/04/23 06/05/23 06/05/23 18:59 06:59 18:59 Intake Total 50 Output Total 350 250 Balance -300 -250 Weight 83.5 kg Intake: Intake, IV Titration 50 Amount cefTRIAXone 1 gm In 50 Sodium Chloride 0.9% 50 ml @ 100 mls/hr IVPB Q24HR [facility] Rx#:[id number] Output: Urine 350 250 Other: Voiding Method Urinal - Exam GENERAL EXAM: Alert, 77-year-old male, on 3 L nasal cannula, in no apparent distress. HEAD: Normocephalic. EYES: Normal reaction of pupils, equal size. NOSE: Clear with pink turbinates. THROAT: No erythema or exudates. NECK: No masses, no JVD. CHEST: No chest wall deformity. LUNGS: Equal air entry with bilateral scattered rhonchi, end expiratory wheeze, diminished. CVS: S1 and S2 normal with no audible murmur, regular rhythm. ABDOMEN: No hepatosplenomegaly, normal bowel sounds, no guarding or rigidity. SPINE: No scoliosis or deformity SKIN: No rashes CENTRAL NERVOUS SYSTEM: No focal deficits, tone is normal in all 4 extremities. EXTREMITIES: There is no peripheral edema. No clubbing, no cyanosis. Peripheral pulses are intact. - Labs CBC & Chem 7: 06/05/23 05:51 06/05/23 05:51 Labs: Abnormal Lab Results - Last 24 Hours (Table) 06/04/23 06/04/23 06/05/23 Range/Units 16:55 20:54 05:51 WBC 10.92 H (4.50-10.00) X 10*3/uL RBC 4.07 L (4.40-5.60) X 10*6/uL Hct 39.5 L (39.6-50.0) % MCV 97.1 H (80.0-97.0) FL MCH 33.2 H (27.0-32.0) pg RDW 14.6 H (11.5-14.5) % Carbon Dioxide (21.6-31.8) mmol/L BUN/Creatinine Ratio (12.00-20.00) Ratio Glucose (70-110) mg/dL POC Glucose (mg/dL) 310 H 240 H (70-110) mg/dL Calcium (8.7-10.3) mg/dL Total Protein (6.2-8.2) g/dL Albumin (3.8-4.9) g/dL Albumin/Globulin Ratio (1.60-3.17) Ratio 06/05/23 06/05/23 06/05/23 Range/Units 05:51 06:03 11:50 WBC (4.50-10.00) X 10*3/uL RBC (4.40-5.60) X 10*6/uL Hct (39.6-50.0) % MCV (80.0-97.0) FL MCH (27.0-32.0) pg RDW (11.5-14.5) % Carbon Dioxide 17.7 L (21.6-31.8) mmol/L BUN/Creatinine Ratio 24.36 H (12.00-20.00) Ratio Glucose 199 H (70-110) mg/dL POC Glucose (mg/dL) 186 H 243 H (70-110) mg/dL Calcium 8.2 L (8.7-10.3) mg/dL Total Protein 5.9 L (6.2-8.2) g/dL Albumin 3.5 L (3.8-4.9) g/dL Albumin/Globulin Ratio 1.46 L (1.60-3.17) Ratio Microbiology - Last 24 Hours (Table) 06/02/23 21:30 Blood Culture - Preliminary Blood 06/02/23 21:15 Blood Culture - Preliminary Blood Assessment and Plan Assessment: Acute hypoxemic respiratory failure secondary to an acute exacerbation of chronic obstructive pulmonary disease complicated by suspected community- acquired pneumonia and influenza A Acute bilateral community-acquired pneumonia, remains on ceftriaxone and azithromycin Acute influenza A infection, remains on Tamiflu History of pulmonary embolism, anticoagulated with Eliquis History of coronary disease with previous stent placements Hypertension Hyperlipidemia Diabetes mellitus Chronic and ongoing tobacco dependence of greater than 50 years History of melanoma History of agent orange exposure while in [place] Plan: The patient was seen and evaluated Labs and medications reviewed Stable and on 2 L nasal cannula Continue Tamiflu, antibiotics, bronchodilators and steroids Follow-up chest x-ray in the a.m. Probable discharge in the a.m. We will continue to follow I have personally seen and examined the patient, performed the documentation and the assessment and plan as written. Number of minutes spent on the visit: 10.
--- NOTE | 2023-06-05 14:51 | P.PN ---
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 He presented to the hospital on 06/02/2023 with a chief complaint of cough and reports of hypoxia. Patient was sent from [facility] where he initially presented for a cough and was sent to the emergency department for low oxygen saturation. Upon arrival to the emergency department patient underwent full evaluation. Initial vital signs show blood pressure 96/63, heart rate 91, respiratory rate 18, temp 100.0 F orally and SpO2 of 93% on room air. Shortly after arrival patient desaturated down to 89% on room air and was placed on 2 L O2 via nasal cannula increasing SpO2 to 94%. Chest x-ray was completed showing right basilar airspace opacities consistent with pneumonia. Labs were completed and reviewed. CBC was unremarkable. BMP revealed sodium 135, chloride 108, chloride 20, and elevated BUN of 25. Potassium was also slightly elevated at 5.4 but was a hemolyzed specimen. Lactic acid normal findings at 1.4. COVID PCR and RSV were negative. Influenza A was positive. Patient was admitted under our services with consultation to pulmonology. A repeat chest x-ray was completed 06/03/2023 showing COPD with continued patchy bilateral lower lung opacities right greater than left. Physical exam: Patient seen and fully evaluated at bedside this morning. He reports feeling slightly better but currently maintaining SpO2 of 90% on 2 L supplemental O2. He is currently on day 4 of Tamiflu. Vital signs reviewed and stable. General: Nontoxic, no distress and appears stated age. Derm: Skin warm and dry, normal coloration for ethnicity. Head: Atraumatic, normocephalic and symmetric. Eyes: EOMs intact, no lid lag, and anicteric sclera Mouth: no lip lesions, mucus membranes moist Cardiovascular: regular rate and rhythm with normal S1S2, no murmur, positive posterior tibial pulses bilaterally, and cap refill < 2 seconds. Lungs: Respirations even, regular, and unlabored. Lungs diminished with diffuse expiratory wheezes throughout all harris bilaterally, no rhonchi, no rales, no crackles, and no accessory muscle usage. Abdominal: soft, nontender to palpation, no guarding, no appreciable organome michael Ext: ROM intact. No gross muscle atrophy, no edema, no contractures Neuro: Speech clear, face symmetrical and CN II-XII grossly intact with no noted focal neuro deficits Psych: Alert and oriented to person, place, time, and situation. Appropriate and pleasant affect. Assessment and Plan of Care: Acute COPD exacerbation secondary to influenza A infection Community acquired pneumonia, suspect postviral pneumonia Acute respiratory failure with hypoxia secondary to above Sepsis upon arrival secondary to above -Oxygenation to be administered and titrated as needed to maintain SPO2 equal to or greater than 92% -Telemetry monitoring. -Monitor pulse-oximetry -Duonebs scheduled 4 times daily and as needed for SOB and/or wheezing -Incentive Spirometry -Steroids: Solu-Medrol 60 mg IVP every 6 hours -Tamiflu 75 mg twice daily day 4 of 5. -Patient completed 3-day course of azithromycin and on day 3 of Rocephin. -Pulmonology following, reviewed documentation in chart. -Continue with Pulmicort 1 mg inhalation twice daily and Perforomist 20 mcg inhalation twice daily. -Urine Legionella negative. CAD with previous stenting Hypertension Hyperlipidemia History of CVA with speech deficits and left-sided weakness -Continue daily medication regimen with aspirin 81 mg daily, atorvastatin 40 mg nightly, metoprolol 25 mg daily, Entresto 24 mg-26 mg tablet twice daily and Aldactone 25 mg daily. History of pulmonary emboli -Continue Eliquis 5 mg twice daily. Data and imaging reviewed: -Morning labs reviewed. CBC showing resolution of thrombocytopenia with repeat platelet count of 141. WBC count slightly elevated at 10.92. BMP showing hypocarbia with bicarb of 17.7 otherwise normal findings. Blood glucose slightly elevated at 199 this morning. Magnesium 2.3. Liver profile normal findings. Albumin slightly low at 3.5. -Vital signs reviewed. Blood pressure 99/56, heart rate 74, respiratory rate 16, temp 97.4 F, and SpO2 of 90% on 2 L. CODE STATUS: Full code DVT prophylaxis: Eliquis Anticipated discharge date: Clinical course to determine Anticipated discharge place: Clinical course to determine Patient was seen independently by Nurse Pracitioner. This document was prepared using [employer] dictation software. Please allow for errors in silk soaker, while rare they do occur. Mookie Ferreira NP rendered care for this patient independently, reviewed the findings and plan as documented in the note above. I did not physically speak with or examine the patient on this date. Objective - Vital Signs Vital signs: Vital Signs Temp 97.4 F L 06/05/23 07:50 Pulse 74 06/05/23 07:50 Resp 16 06/05/23 07:50 BP 99/56 06/05/23 07:50 Pulse Ox 90 L 06/05/23 07:50 FiO2 Intake & Output 06/04/23 06/05/23 06/05/23 18:59 06:59 18:59 Intake Total 50 Output Total 350 250 Balance -300 -250 Weight 83.5 kg Intake: Intake, IV Titration 50 Amount cefTRIAXone 1 gm In 50 Sodium Chloride 0.9% 50 ml @ 100 mls/hr IVPB Q24HR [facility] Rx#:[id number] Output: Urine 350 250 - Labs CBC & Chem 7: 06/05/23 05:51 06/05/23 05:51 Labs: Abnormal Lab Results - Last 24 Hours (Table) 06/04/23 06/04/23 06/04/23 Range/Units 06:53 06:53 06:53 RBC 4.09 L (4.30-5.90) m/uL MCV 104.0 H (80.0-100.0) fL Plt Count 124 L (150-450) k/uL Chloride 111 H (98-107) mmol/L Carbon Dioxide 21 L (22-30) mmol/L BUN 27 H (9-20) mg/dL Glucose 170 H (74-99) mg/dL POC Glucose (mg/dL) (70-110) mg/dL Hemoglobin A1c 7.4 H (<=6.0) % 06/04/23 06/04/23 06/05/23 Range/Units 16:55 20:54 06:03 RBC (4.30-5.90) m/uL MCV (80.0-100.0) fL Plt Count (150-450) k/uL Chloride (98-107) mmol/L Carbon Dioxide (22-30) mmol/L BUN (9-20) mg/dL Glucose (74-99) mg/dL POC Glucose (mg/dL) 310 H 240 H 186 H (70-110) mg/dL Hemoglobin A1c (<=6.0) % Microbiology - Last 24 Hours (Table) 06/02/23 21:30 Blood Culture - Preliminary Blood 06/02/23 21:15 Blood Culture - Preliminary Blood
[2023-06-05 17:16] LABS: Glucose,Whole Blood 254 mg/dL (70-110)
[2023-06-05 20:22] LABS: Glucose,Whole Blood 246 mg/dL (70-110)
[2023-06-06 05:51] LABS: Glucose,Whole Blood 192 mg/dL (70-110)
[2023-06-06 07:51] VITALS: RESP 17
--- NOTE | 2023-06-06 11:10 | XR ---
EXAMINATION TYPE: XR chest 1V portable DATE OF EXAM: 06/06/2023 Comparison: 06/03/2023 Clinical History: 77-year-old male Flu A, COPD Findings: Heart upper limits of normal in size. Hyperinflation. Tortuous thoracic aorta. There is mild bilatera l lower lung interstitial density with aeration improving from prior. Impression: COPD with residual mild interstitial density in the lower lungs, improving from prior.
[2023-06-06] MEDS: CEFDINIR 300 MG CAP PO SCH (11:16)
[2023-06-06 11:41] LABS: Glucose,Whole Blood 246 mg/dL (70-110)
--- NOTE | 2023-06-06 14:48 | P.PN ---
Subjective Progress Note Date: 06/06/23 This is a 77-year-old male patient with a known history of diabetes mellitus, hypertension, congestive heart failure, CVA/TIA, hyperlipidemia, pulmonary embolism anticoagulated with Eliquis, coronary artery disease with previous stent placements, Melanoma and basal cell skin cancers, history of agent orange exposure during the [place], chronic and ongoing tobacco dependence. He presented to the emergency room yesterday with a 3-day history of increasing shortness of breath, cough and congestion. Chest x-ray does reveal basilar airspace opacities concerning for pneumonia. White count 6.4. Hemoglobin 15.5. Platelets 148. Sodium 137. Potassium 4.4. Bicarb 22. BUN 23. Creatinine 1.07. Glucose 129. Viral screen is positive for influenza A. He is seen today in consultation in the emergency department. Currently sitting up in a stretcher. Awake and alert in no acute distress. He does have a loose nonproductive cough. He is maintaining O2 saturations in the low 90s on 4 L/min per nasal cannula. Afebrile. Hemodynamically stable. The patient is seen today June 04, 2023 in follow-up in the emergency department. He is currently resting on a stretcher. Awake and alert in no acute distress. Feeling a bit better today compared to yesterday. Maintaining O2 saturations in the mid 90s on 2 L nasal cannula. He is afebrile. Hemodynamically stable. Blood cultures reveal no growth to date. Count 5.9. Hemoglobin 13.9. Platelets 124. Sodium 139. Potassium 4.8. Bicarb 21. BUN 27. Creatinine 1.09. Glucose 170. He remains on DuoNeb ventilations, Pulmicort and performing scintillations, Solu-Medrol. Continued on Tamiflu. Abimael Derm patch in place. Anticoagulated with Eliquis. Remains on antibiotics in the form of ceftriaxone and azithromycin. The patient is seen today June 05, 2023 in follow-up in the on the regular medical floor. He is currently sitting up in bed. Awake and alert in no acute distress. Breathing easier today compared to yesterday. Less cough and congestion. He is maintaining O2 saturations in the 90s on 2 L/min per nasal cannula. He is continued on Tamiflu. Continued on antibiotics. He remains on bronchodilators and steroids. Anticoagulated with Eliquis. NicoDerm patch in place. Blood cultures revealed no growth. White count 10.9. Hemoglobin 13.5. Platelets 141. Sodium 137. Potassium 3.7. Bicarb 18. BUN 27. Creatinine 1.1. Glucose 199. The patient is seen today June 06, 2023 in follow-up on the regular medical floor. He is currently sitting up in a chair at the bedside. Awake and alert in no acute distress. Chest x-ray is showing significant improvement. He is maintaining O2 saturations in the 90s on 2 L/min per nasal cannula. O2 saturation on room air was 86%. Qualified for home oxygen. Glucose 192. He remains on DuoNeb ventilations, Symbicort, Solu-Medrol. Anticoagulated with Eliquis. Remains on antibiotics in the form of ceftriaxone. Objective - Vital Signs Vital signs: Vital Signs Temp 97.6 F 06/06/23 06:35 Pulse 52 L 06/06/23 12:44 Resp 17 06/06/23 06:35 BP 106/60 06/06/23 06:35 Pulse Ox 88 L 06/06/23 10:48 FiO2 Intake & Output 06/05/23 06/06/23 06/06/23 18:59 06:59 18:59 Weight 83 kg Other: Voiding Method Urinal Urinal # Voids 3 1 - Exam GENERAL EXAM: Alert, 77-year-old male, up in a chair, on 2 L nasal cannula, in no apparent distress. HEAD: Normocephalic. EYES: Normal reaction of pupils, equal size. NOSE: Clear with pink turbinates. THROAT: No erythema or exudates. NECK: No masses, no JVD. CHEST: No chest wall deformity. LUNGS: Equal air entry with bilateral scattered rhonchi, end expiratory wheeze, diminished. CVS: S1 and S2 normal with no audible murmur, regular rhythm. ABDOMEN: No hepatosplenomegaly, normal bowel sounds, no guarding or rigidity. SPINE: No scoliosis or deformity SKIN: No rashes CENTRAL NERVOUS SYSTEM: No focal deficits, tone is normal in all 4 extremities. EXTREMITIES: There is no peripheral edema. No clubbing, no cyanosis. Peripheral pulses are intact. - Labs CBC & Chem 7: 06/05/23 05:51 06/05/23 05:51 Labs: Abnormal Lab Results - Last 24 Hours (Table) 0306/05/23 06/06/23 Range/Units 17:15 20:20 05:49 POC Glucose (mg/dL) 254 H 246 H 192 H (70-110) mg/dL 06/06/23 Range/Units 11:40 POC Glucose (mg/dL) 246 H (70-110) mg/dL Microbiology - Last 24 Hours (Table) 06/02/23 21:30 Blood Culture - Preliminary Blood 06/02/23 21:15 Blood Culture - Preliminary Blood Assessment and Plan Assessment: Acute hypoxemic respiratory failure secondary to an acute exacerbation of chronic obstructive pulmonary disease complicated by suspected community- acquired pneumonia and influenza A Acute bilateral community-acquired pneumonia, remains on ceftriaxone and completed azithromycin Acute influenza A infection, remains on Tamiflu History of pulmonary embolism, anticoagulated with Eliquis History of coronary disease with previous stent placements Hypertension Hyperlipidemia Diabetes mellitus Chronic and ongoing tobacco dependence of greater than 50 years History of melanoma History of agent orange exposure while in [place] Plan: The patient was seen and evaluated Chest x-ray, labs and medications reviewed Stable and on 2 L nasal cannula Qualifies for home oxygen Cleared for discharge from the pulmonary standpoint Discontinue ceftriaxone, add Ceftin 300 mg twice daily x 5 days Continue DuoNeb and elations Ordered a home nebulizer Complete a course of Tamiflu Complete a prednisone taper starting at 40 mg x 4 days Follow-up in our office in 1 week I have personally seen and examined the patient, performed the documentation and the assessment and plan as written. Number of minutes spent on the visit: 10.
[2023-06-06 15:13] VITALS: BP 112/58; PULSE 63; TEMP 98.2
--- NOTE | 2023-06-06 15:38 | P.DS ---
Providers Date of admission: 06/03/23 15:06 Expected date of discharge: 06/06/23 Attending physician: Zafar Rahman MD Consults: 06/03/23 08:07 Consult Physician Routine Consulting Provider: Damion Alonzo Reason/Comments: Flu, acute hypoxic respiratory failure Do you want consulting provider notified?: Yes Primary care physician: Ebenezer Sinclair [facility] Course: Discharge Diagnosis: Acute COPD exacerbation secondary to influenza A infection Community acquired pneumonia, suspect postviral pneumonia Acute respiratory failure with hypoxia secondary to above Sepsis upon arrival secondary to above CAD with previous stenting Hypertension Hyperlipidemia 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 He presented to the hospital on 06/02/2023 with a chief complaint of cough and reports of hypoxia. Patient was sent from [facility] where he initially presented for a cough and was sent to the emergency department for low oxygen saturation. Upon arrival to the emergency department patient underwent full evaluation. Initial vital signs show blood pressure 96/63, heart rate 91, respiratory rate 18, temp 100.0 F orally and SpO2 of 93% on room air. Shortly after arrival patient desaturated down to 89% on room air and was placed on 2 L O2 via nasal cannula increasing SpO2 to 94%. Chest x-ray was completed showing right basilar airspace opacities consistent with pneumonia. Labs were completed and reviewed. CBC was unremarkable. BMP revealed sodium 135, chloride 108, chloride 20, and elevated BUN of 25. Potassium was also slightly elevated at 5.4 but was a hemolyzed specimen. Lactic acid normal findings at 1.4. COVID PCR and RSV were negative. Influenza A was positive. Patient was admitted under our services with consultation to pulmonology. A repeat chest x-ray was completed 06/03/2023 showing COPD with continued patchy bilateral lower lung opacities right greater than left. Patient was started on antibiotics in addition to Tamiflu. Blood cultures showing no growth to date. Procalcitonin resulting negative at 0.07. Antibiotics discontinued. Home oxygen evaluation completed. Patient was found to be 88% on room air at rest desaturating down to 86% on room air with exercise requiring supplemental oxygen of 2 L at all times to maintain SpO2 of 90%. Arrangements were made for patient to be discharged home on continuous oxygen. Patient cleared from pulmonology perspective recommending outpatient follow-up in their office in 1 week. Medically, patient is stable for discharge at this time. Patient discharged home with nebulizer machine and DuoNeb treatments, continuous home oxygen, prednisone taper, and his final 2 doses of Tamiflu. Patient to follow-up outpatient with PCP in 1 to 2 days and with clerk entry level in 1 week. Physical exam: Vital signs reviewed and stable. General: Nontoxic, no distress and appears stated age. Derm: Skin warm and dry, normal coloration for ethnicity. Head: Atraumatic, normocephalic and symmetric. Eyes: EOMs intact, no lid lag, and anicteric sclera Mouth: no lip lesions, mucus membranes moist Cardiovascular: regular rate and rhythm with normal S1S2, no murmur, positive posterior tibial pulses bilaterally, and cap refill < 2 seconds. Lungs: Respirations even, regular, and unlabored. Lungs with equal air entry with soft diffuse expiratory wheezes bilaterally, no rhonchi, no rales, no crackles, and no accessory muscle usage. Abdominal: soft, nontender to palpation, no guarding, no appreciable organomegaly Ext: ROM intact. No gross muscle atrophy, no edema, no contractures Neuro: Speech clear, face symmetrical and CN II-XII grossly intact with no noted focal neuro deficits Psych: Alert and oriented to person, place, time, and situation. Appropriate and pleasant affect. A total of 37 minutes of time were spent preparing this complex discharge summary. Pt was discharged on 06/06/2023 at 3:30 PM. Patient was seen independently by Nurse Practitioner. This document was prepared using Co[employer] dictation software. Please allow for errors in lead based paint technician while rare they do occur. Mookie Ferreira NP rendered care for this patient independently, reviewed the findings and plan as documented in the note above. I did not physically speak with or examine the patient on this date. Patient Condition at Discharge: Stable Plan - Discharge Summary New Discharge Prescriptions: New Benzonatate [Tessalon Perles] 100 mg PO TID PRN #60 cap PRN Reason: Cough Ipratropium-Albuterol Nebulize [Duoneb 0.5 mg-3 mg/3 ml Soln] 3 ml INHALATION RT-QID 30 Days #120 each Oseltamivir [Tamiflu] 75 mg PO Q12HR 1 Days #2 cap predniSONE See Taper PO DIRECTED 16 Days #40 tab Nicotine 21Mg/24Hr Patch [Habitrol] 1 each TRANSDERM DAILY 30 Days #30 patch Continue Latanoprost Ophth [Xalatan 0.005%] 1 drop BOTH EYES HS Empagliflozin [Jardiance] 25 mg PO DAILY Alogliptin Benzoate [Alogliptin] 25 mg PO DAILY rOPINIRole HCL [Requip] 1 mg PO HS metFORMIN HCL ER [Glucophage XR] 500 mg PO DAILY Acetaminophen/Diphenhydramine [Tylenol PM 500-25mg] 2 tab PO HS Cinnamon Bark [Cinnamon] 1,000 mg PO DAILY Fluticasone Propion/Salmeterol [Wixela 250-50 Inhub] 1 puff INHALATION RT-BID PRN PRN Reason: Shortness Of Breath Brimonidine Tartrate [Alphagan P 0.2% Ophth Soln] 1 drop BOTH EYES BID Spironolactone [Aldactone] 25 mg PO DAILY 30 Days #30 tab Atorvastatin Calcium [Lipitor] 40 mg PO HS Apixaban [Eliquis] 5 mg PO BID Sacubitril/Valsartan [Entresto 24 mg-26 mg Tablet] 1 tab PO BID Aspirin [Adult Low Dose Aspirin EC] 81 mg PO DAILY Metoprolol Succinate [Metoprolol Succinate ER] 25 mg PO DAILY metFORMIN HCL ER [Glucophage XR] 1,000 mg PO HS Discharge Medication List Empagliflozin [Jardiance] 25 mg PO DAILY 10/19/16 [History] Latanoprost Ophth [Xalatan 0.005%] 1 drop BOTH EYES HS 10/19/16 [History] Alogliptin Benzoate [Alogliptin] 25 mg PO DAILY 12/18/20 [History] Brimonidine Tartrate [Alphagan P 0.2% Ophth Soln] 1 drop BOTH EYES BID 12/18/20 [History] Spironolactone [Aldactone] 25 mg PO DAILY 30 Days #30 tab 12/20/20 [Rx] Atorvastatin Calcium [Lipitor] 40 mg PO HS 02/19/22 [History] metFORMIN HCL ER [Glucophage XR] 500 mg PO DAILY 02/19/22 [History] rOPINIRole HCL [Requip] 1 mg PO HS 02/19/22 [History] Acetaminophen/Diphenhydramine [Tylenol PM 500-25mg] 2 tab PO HS 05/29/22 [History] Apixaban [Eliquis] 5 mg PO BID 05/29/22 [History] Aspirin [Adult Low Dose Aspirin EC] 81 mg PO DAILY 05/29/22 [History] Metoprolol Succinate [Metoprolol Succinate ER] 25 mg PO DAILY 05/29/22 [History] Sacubitril/Valsartan [Entresto 24 mg-26 mg Tablet] 1 tab PO BID 05/29/22 [History] Cinnamon Bark [Cinnamon] 1,000 mg PO DAILY 06/02/23 [History] Fluticasone Propion/Salmeterol [Wixela 250-50 Inhub] 1 puff INHALATION RT-BID PRN 06/02/23 [History] metFORMIN HCL ER [Glucophage XR] 1,000 mg PO HS 06/02/23 [History] Benzonatate [Tessalon Perles] 100 mg PO TID PRN #60 cap 06/06/23 [Rx] Ipratropium-Albuterol Nebulize [Duoneb 0.5 mg-3 mg/3 ml Soln] 3 ml INHALATION RT-QID 30 Days #120 each 06/06/23 [Rx] Nicotine 21Mg/24Hr Patch [Habitrol] 1 each TRANSDERM DAILY 30 Days #30 patch 06/06/23 [Rx] Oseltamivir [Tamiflu] 75 mg PO Q12HR 1 Days #2 cap 06/06/23 [Rx] predniSONE See Taper PO DIRECTED 16 Days #40 tab 06/06/23 [Rx] Follow up Appointment(s)/Referral(s): Cesario Canela MD [STAFF PHYSICIAN] - 1 Week Ebenezer Guerrero MD [Primary Care Provider] - 1-2 days Patient Instructions/Handouts: Influenza (DC), Using Oxygen at Home (DC), COPD (Chronic Obstructive Pulmonary Disease) (DC), Chronic Lung Disease and Infection Prevention (DC) Activity/Diet/Wound Care/Special Instructions: Activity: As tolerated. Take breaks as needed. Diet: Heart healthy and carb consistent diet. Avoid salts, or foods with hidden salts such as canned or boxed foods and frozen dinners. Extra salt makes your heart work harder and traps the fluid in your body for longer. Special Instructions: Take all of your medications as directed and remember to keep all of your doctor's appointments and follow-up as needed. You are being discharged home with oxygen. It is important to wear this at all times including while showering and sleeping until further directed by your print buyer, Dr. Canela. Strongly recommend continued smoking cessation. Thank you for allowing us to participate in your care, it was truly a pleasure having you for our patient!!! Discharge Disposition: HOME SELF-CARE
[2023-06-06] MEDS ORDERED: SYMBICORT 160-4.5 MCG INHALER INHALATION SCH (20:00)
[2023-06-07] MEDS ORDERED: predniSONE 20 MG TAB PO SCH (09:00)
== END 2023-06-06 17:22 | disposition home or self-care (01) | DRG 871 ==
LOC: EC 12:48 → 6NMEDSUR 18:45 → OBSVTOIN 06-03 15:06 → 3SCARD 06-03 17:20 → 4SSUR 06-04 10:00
PROVIDERS: ADMIT Student in an Organized Health Care Education/Training Program; ATTEND Student in an Organized Health Care Education/Training Program
DX: A41.89 Other specified sepsis (principal); J10.01 Influenza due to other identified influenza virus with the same other identified influenza virus pneumonia; J96.01 Acute respiratory failure with hypoxia; J44.0 Chronic obstructive pulmonary disease with (acute) lower respiratory infection; I69.354 Hemiplegia and hemiparesis following cerebral infarction affecting left non-dominant side; I50.22 Chronic systolic (congestive) heart failure; D69.6 Thrombocytopenia, unspecified; I11.0 Hypertensive heart disease with heart failure; Z99.81 Dependence on supplemental oxygen; E11.39 Type 2 diabetes mellitus with other diabetic ophthalmic complication; G25.81 Restless legs syndrome; I69.328 Other speech and language deficits following cerebral infarction; I69.391 Dysphagia following cerebral infarction; E86.0 Dehydration; E78.5 Hyperlipidemia, unspecified; H42 Glaucoma in diseases classified elsewhere; I25.10 Atherosclerotic heart disease of native coronary artery without angina pectoris; F17.210 Nicotine dependence, cigarettes, uncomplicated; D75.89 Other specified diseases of blood and blood-forming organs; Z77.29 Contact with and (suspected) exposure to other hazardous substances; Z79.01 Long term (current) use of anticoagulants; Z79.84 Long term (current) use of oral hypoglycemic drugs; Z79.1 Long term (current) use of non-steroidal anti-inflammatories (NSAID); Z79.82 Long term (current) use of aspirin; Z79.51 Long term (current) use of inhaled steroids; Z86.718 Personal history of other venous thrombosis and embolism; I25.2 Old myocardial infarction; Z95.5 Presence of coronary angioplasty implant and graft; Z86.711 Personal history of pulmonary embolism; Z88.5 Allergy status to narcotic agent; Z79.899 Other long term (current) drug therapy; Z85.820 Personal history of malignant melanoma of skin; Z85.828 Personal history of other malignant neoplasm of skin; Z88.8 Allergy status to other drugs, medicaments and biological substances
CPT/HCPCS: 36415; 71045; 71046; 80048; 80053; 82607; 82746; 83036; 83605; 83735; 84145; 85025; 85027; 87040; 87449; 87636; 94640; 94760; 96361; 96365; 96366; 96367; 96375; 96376; 99285

== ENCOUNTER → 2023-11-29 | Outpatient (CLI) | payer MEDICARE, BC ==
--- NOTE | 2023-11-29 18:13 | FL ---
EXAMINATION TYPE: FL barium swallow w video DATE OF EXAM: 11/29/2023 CLINICAL HISTORY: 78-year-old male R13.13, previous CVA with occasional coughing especially when recl ined. Dysphagia. TECHNIQUE: Deglutition study is performed utilizing thin liquid barium, barium thick pudding, and ba rium coated cracker. Total fluoroscopy time 58 seconds. Total images: None. Real-time fluoroscopy support provided for speech pathology. Total dose: 25 mGycm2 COMPARISON: None. FINDINGS: The oral and pharyngeal phases show satisfactory initiation and propagation with all modalities teste d. Normal mastication is seen with solid modalities tested. There is no evidence of penetration or aspiration with any modality tested. No significant pharyngeal residue was appreciated. IMPRESSION: No penetration or aspiration. Please refer to speech therapist notes for further details if necessary.
== END | disposition home or self-care (01) ==
LOC: RADFLMAIN 11:15
PROVIDERS: ATTEND Otolaryngology
DX: R13.13 Dysphagia, pharyngeal phase (principal); Z86.73 Personal history of transient ischemic attack (TIA), and cerebral infarction without residual deficits
CPT/HCPCS: 74230

== ENCOUNTER 2024-03-08 13:18 | Emergency (ER) | payer MEDICARE, BC ==
--- NOTE | 2024-03-08 14:02 | ED ---
General Adult HPI - General Chief complaint: Shortness of Breath Stated complaint: Fluid under heart Time Seen by Provider: 03/08/24 13:32 Source: patient, RN notes reviewed, old records reviewed Mode of arrival: ambulatory Limitations: no limitations - History of Present Illness Initial comments: 78-year-old male presents for evaluation of abnormal x-ray from urgent care. Patient was told that he had fluid around the heart or around the lungs. Radha ent has history of CVA, CAD status post stenting, previous PE, COPD. Patient states he had gone to urgent care with complaint of lightheadedness and feeling like he might pass out which occurred yesterday. He states he did not pass out. No injury. No dyspnea. Mild persistent cough which is unchanged. No fever. No chest or abdominal pain. - Related Data Home Medications Medication Instructions Recorded Confirmed Empagliflozin [Jardiance] 25 mg PO DAILY 10/19/16 06/02/23 Latanoprost Ophth [Xalatan 0.005%] 1 drop BOTH EYES HS 10/19/16 06/02/23 Alogliptin Benzoate [Alogliptin] 25 mg PO DAILY 12/18/20 06/02/23 Brimonidine Tartrate [Alphagan P 1 drop BOTH EYES BID 12/18/20 06/02/23 0.2% Ophth Soln] Atorvastatin Calcium [Lipitor] 40 mg PO HS 02/19/22 06/02/23 metFORMIN HCL ER [Glucophage XR] 500 mg PO DAILY 02/19/22 06/02/23 rOPINIRole HCL [Requip] 1 mg PO HS 02/19/22 06/02/23 Acetaminophen/Diphenhydramine 2 tab PO HS 05/29/22 06/02/23 [Tylenol PM 500-25mg] Apixaban [Eliquis] 5 mg PO BID 05/29/22 06/02/23 Aspirin [Adult Low Dose Aspirin EC] 81 mg PO DAILY 05/29/22 06/02/23 Metoprolol Succinate [Metoprolol 25 mg PO DAILY 05/29/22 06/02/23 Succinate ER] Sacubitril/Valsartan [Entresto 24 1 tab PO BID 05/29/22 06/02/23 mg-26 mg Tablet] Cinnamon Bark [Cinnamon] 1,000 mg PO DAILY 06/02/23 06/02/23 Fluticasone Propion/Salmeterol 1 puff INHALATION RT-BID PRN 06/02/23 06/02/23 [Wixela 250-50 Inhub] metFORMIN HCL ER [Glucophage XR] 1,000 mg PO HS 06/02/23 06/02/23 Previous Rx's Medication Instructions Recorded Spironolactone [Aldactone] 25 mg PO DAILY 30 Days #30 tab 12/20/20 Benzonatate [Tessalon Perles] 100 mg PO TID PRN #60 cap 06/06/23 Ipratropium-Albuterol Nebulize 3 ml INHALATION RT-QID 30 Days 06/06/23 [Duoneb 0.5 mg-3 mg/3 ml Soln] #120 each Nicotine 21Mg/24Hr Patch [Habitrol] 1 each TRANSDERM DAILY 30 Days #30 06/06/23 patch Oseltamivir [Tamiflu] 75 mg PO Q12HR 1 Days #2 cap 06/06/23 predniSONE See Taper PO DIRECTED 16 Days 06/06/23 #40 tab Allergies Allergy/AdvReac Type Severity Reaction Status Date / Time oxycodone [From OxyContin] AdvReac Nausea & Verified 03/08/24 13:29 Vomiting LUCY Inhibitors Allergy Cough Uncoded 03/08/24 13:29 Review of Systems ROS Statement: Those systems with pertinent positive or pertinent negative responses have been documented in the HPI. ROS Other: All systems not noted in ROS Statement are negative. Past Medical History Past Medical History: Cancer, CVA/TIA, Diabetes Mellitus, Eye Disorder, Hyperlipidemia, Hypertension, Myocardial Infarction (LA), Pulmonary Embolus (PE) Additional Past Medical History / Comment(s): See Dr Mcarthur's H&P. 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 Ongoing SOB, no O2 needed. Hx Melanoma & Basal Cell cancer on scalp and eyelid. Bilateral Glaucoma. 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 Last Myocardial Infarction Date:: 11/2020 History of Any Multi-Drug Resistant Organisms: None Reported Past Surgical History: Cholecystectomy, Heart Catheterization With Stent, Tonsillectomy Additional Past Surgical History / Comment(s): 35 cysts removed, large cyst removed from armpit, colonoscopy, 2 cardiac stents. Past Anesthesia/Blood Transfusion Reactions: No Reported Reaction Date of Last Stent Placement:: 11/2020 Past Psychological History: No Psychological Hx Reported Smoking Status: Current every day smoker Past Alcohol Use History: None Reported Past Drug Use History: None Reported - Past Family History Father Family Medical History: Cancer Additional Family Medical History / Comment(s): Stomach cancer. Mother Family Medical History: No Reported History General Exam Limitations: no limitations General appearance: alert, in no apparent distress Head exam: Present: atraumatic, normocephalic Eye exam: Present: normal appearance, PERRL ENT exam: Present: normal exam Neck exam: Present: normal inspection. Absent: tenderness, meningismus Respiratory exam: Absent: respiratory distress, wheezes, rales Cardiovascular Exam: Present: regular rate, normal rhythm GI/Abdominal exam: Present: soft. Absent: distended, tenderness, guarding Extremities exam: Present: normal inspection, normal capillary refill. Absent: pedal edema Neurological exam: Present: alert, oriented X3, CN II-XII intact. Absent: motor sensory deficit Psychiatric exam: Present: normal affect, normal mood Skin exam: Present: dry, intact Course Vital Signs 03/08/24 03/08/24 03/08/24 13:25 13:29 15:15 Temperature 98.5 F 98.3 F Pulse Rate 89 76 Respiratory 16 20 16 Rate Blood Pressure 87/55 86/51 O2 Sat by Pulse 94 L 93 L Oximetry 03/08/24 15:43 Temperature 98.4 F Pulse Rate 77 Respiratory 14 Rate Blood Pressure 85/52 O2 Sat by Pulse 93 L Oximetry Medical Decision Making - Medical Decision Making Was pt. sent in by a medical professional or institution (, PA, BUDGET RECORD CLERK, urgent care, hospital, or jail...) When possible be specific @ -No Did you speak to anyone other than the patient for history (EMS, parent, family, police, friend...)? What history was obtained from this source @ -No Did you review nursing and triage notes (agree or disagree)? Why? @ -I reviewed and agree with nursing and triage notes Were old charts reviewed (outside hosp., previous admission, EMS record, old EKG, old radiological studies, urgent care reports/EKG's, jail records)? Report findings @ -No old charts were reviewed Differential Syncope: Valvular disease, hypertrophic cardiomyopathy, pulmonary embolism, tamponade, tachycardia, bradycardia, LA, hypovolemia, hemorrhage, dissection, anemia, intracranial hemorrhage, seizure, hypoglycemia, carbon monoxide poisoning, this is not meant to be an all-inclusive list. EKG interpreted by me (3pts min.). @Sinus rhythm, intraventricular conduction delay, rate of 86, SC interval 186, QRS duration 133, QTc [address] segment elevation, similar appearance to prior EKG in January 2022 X-rays interpreted by me (1pt min.). @ -Outside 2 view x-ray reviewed, no cardiomegaly, no christopher CHF, no pneumothorax. CT interpreted by me (1pt min.). @ -None done U/S interpreted by me (1pt. min.). @ -None done What testing was considered but not performed or refused? (CT, X-rays, U/S, labs)? Why? @ -None What meds were considered but not given or refused? Why? @ -None Did you discuss the management of the patient with other professionals (professionals i.e. , PA, BUDGET RECORD CLERK, lab, RT, psych nurse, social welfare administrator, branch or department chief librarian, teacher, special skills officer, housing case manager)? Give summary @ -No Was smoking cessation discussed for >3mins.? @ -No Was critical care preformed (if so, how long)? @ -No Were there social determinants of health that impacted care today? How? (Homelessness, low income, unemployed, alcoholism, drug addiction, transportation, low edu. Level, literacy, decrease access to med. care, assisted, rehab)? @ -No Was there de-escalation of care discussed even if they declined (Discuss DNR or withdrawal of care, Hospice)? DNR status @ -No What co-morbidities impacted this encounter? (DM, HTN, Smoking, COPD, CAD, Cancer, CVA, ARF, Chemo, Hep., AIDS, mental health diagnosis, sleep apnea, mo rbid obesity)? @ -CAD, previous CVA Was patient admitted / discharged? Hospital course, mention meds given and route, prescriptions, significant lab abnormalities, going to OR and other pertinent info. @38-year-old male presenting from outside urgent care with chief complaint of lightheadedness, near syncope. Patient had an chest x-ray and was sent to the emergency department. Patient states his blood pressure runs low often in the 80s and 90s systolic. He states that this has happened to him many times in the past that he had his blood pressure medication adjusted. I did obtain an EKG wh ich was baseline. Laboratory test including CBC, CMP, troponin, BMP is unremarkable. I did offer the patient observation for echocardiogram, cardiology consultation regarding blood pressure medications and possible adjustment. Patient declines. States he feels fine and will contact his primary care provider and legend maker tomorrow. Undiagnosed new problem with uncertain prognosis? @ -No Drug Therapy requiring intensive monitoring for toxicity (Heparin, Nitro, Insulin, Cardizem)? @ -No Were any procedures done? @ -No Diagnosis/symptom? @Lightheadedness Acute, or Chronic, or Acute on Chronic? @ -Acute Uncomplicated (without systemic symptoms) or Complicated (systemic symptoms)? @ -Default Side effects of treatment? @ -No Exacerbation, Progression, or Severe Exacerbation? @ -No Poses a threat to life or bodily function? How? (Chest pain, USA, LA, pneumonia, PE, COPD, DKA, ARF, appy, cholecystitis, CVA, Diverticulitis, Homicidal, Suicidal, threat to staff... and all critical care pts) @Moderate risk - Lab Data Result diagrams: 03/08/24 14:47 03/08/24 14:47 Lab Results 03/08/24 03/08/24 03/08/24 Range/Units 14:47 14:47 14:47 WBC 10.6 (3.8-10.6) k/uL RBC 4.60 (4.30-5.90) m/uL Hgb 15.0 (13.0-17.5) gm/dL Hct 45.9 (39.0-53.0) % MCV 99.9 (80.0-100.0) fL MCH 32.7 (25.0-35.0) pg MCHC 32.7 (31.0-37.0) g/dL RDW 14.1 (11.5-15.5) % Plt Count 188 (150-450) k/uL MPV 8.4 Neutrophils % 76 % Lymphocytes % 14 % Monocytes % 7 % Eosinophils % 2 % Basophils % 1 % Neutrophils # 8.0 H (1.3-7.7) k/uL Lymphocytes # 1.4 (1.0-4.8) k/uL Monocytes # 0.7 (0-1.0) k/uL Eosinophils # 0.2 (0-0.7) k/uL Basophils # 0.1 (0-0.2) k/uL PT 11.3 (10.0-12.5) sec INR 1.0 (<1.2) APTT 26.9 (22.0-30.0) sec Sodium 137 (137-145) mmol/L Potassium 4.3 (3.5-5.1) mmol/L Chloride 106 (98-107) mmol/L Carbon Dioxide 23 (22-30) mmol/L Anion Gap 8 mmol/L BUN 21 H (9-20) mg/dL Creatinine 1.25 (0.66-1.25) mg/dL Est GFR (CKD-EPI)AfAm 64 (>60 ml/min/1.73 sqM) Est GFR (CKD-EPI)NonAf 55 (>60 ml/min/1.73 sqM) Glucose 195 H (74-99) mg/dL Calcium 9.5 (8.4-10.2) mg/dL Magnesium 1.8 (1.6-2.3) mg/dL Total Bilirubin 0.6 (0.2-1.3) mg/dL AST 19 (17-59) U/L ALT 18 (4-49) U/L Alkaline Phosphatase 70 (38-126) U/L Troponin I (0.000-0.034) ng/mL NT-Pro-B Natriuret Pep 363 pg/mL Total Protein 7.0 (6.3-8.2) g/dL Albumin 4.3 (3.5-5.0) g/dL 03/08/24 Range/Units 14:47 WBC (3.8-10.6) k/uL RBC (4.30-5.90) m/uL Hgb (13.0-17.5) gm/dL Hct (39.0-53.0) % MCV (80.0-100.0) fL MCH (25.0-35.0) pg MCHC (31.0-37.0) g/dL RDW (11.5-15.5) % Plt Count (150-450) k/uL MPV Neutrophils % % Lymphocytes % % Monocytes % % Eosinophils % % Basophils % % Neutrophils # (1.3-7.7) k/uL Lymphocytes # (1.0-4.8) k/uL Monocytes # (0-1.0) k/uL Eosinophils # (0-0.7) k/uL Basophils # (0-0.2) k/uL PT (10.0-12.5) sec INR (<1.2) APTT (22.0-30.0) sec Sodium (137-145) mmol/L Potassium (3.5-5.1) mmol/L Chloride (98-107) mmol/L Carbon Dioxide (22-30) mmol/L Anion Gap mmol/L BUN (9-20) mg/dL Creatinine (0.66-1.25) mg/dL Est GFR (CKD-EPI)AfAm (>60 ml/min/1.73 sqM) Est GFR (CKD-EPI)NonAf (>60 ml/min/1.73 sqM) Glucose (74-99) mg/dL Calcium (8.4-10.2) mg/dL Magnesium (1.6-2.3) mg/dL Total Bilirubin (0.2-1.3) mg/dL AST (17-59) U/L ALT (4-49) U/L Alkaline Phosphatase (38-126) U/L Troponin I <0.012 (0.000-0.034) ng/mL NT-Pro-B Natriuret Pep pg/mL Total Protein (6.3-8.2) g/dL Albumin (3.5-5.0) g/dL Disposition Clinical Impression: Near syncope Disposition: HOME SELF-CARE Condition: Fair Instructions (If sedation given, give patient instructions): Near Syncope (ED) Additional Instructions: Please monitor your blood pressure closely. Please follow-up with your primary care provider or legend maker regarding current medications. Please return to the emergency department with any new or worsening symptoms. Is patient prescribed a controlled substance at d/c from ED?: No Referrals: Ebenezer Guerrero MD [Primary Care Provider] - 1-2 days Goyo Mcarthur DO [STAFF PHYSICIAN] - 1-2 days Time of Disposition: 16:19
[2024-03-08 14:55] LABS: Basophils # (A) 0.1 k/uL (0-0.2); Basophils % (A) 1 %; Eosinophils # (A) 0.2 k/uL (0-0.7); Eosinophils % (A) 2 %; HCT 45.9 % (39.0-53.0); Lymphocytes # (A) 1.4 k/uL (1.0-4.8); Lymphocytes % (A) 14 %; MCH 32.7 pg (25.0-35.0); MCHC 32.7 g/dL (31.0-37.0); MCV 99.9 fL (80.0-100.0); Mean Platelet Volume 8.4; Monocytes # (A) 0.7 k/uL (0-1.0); Monocytes % (A) 7 %; Neutrophils % (A) 76 %; Platelet Count 188 k/uL (150-450); RDW 14.1 % (11.5-15.5); WBC 10.6 k/uL (3.8-10.6)
[2024-03-08 15:06] LABS: ALT 18 U/L (4-49); AST 19 U/L (17-59); African American GFR (CKD) 64 (>60 ml/min/1.73 sqM); Albumin 4.3 g/dL (3.5-5.0); Alkaline Phosphatase 70 U/L (38-126); Anion Gap 8 mmol/L; Blood Urea Nitrogen 21 mg/dL (9-20); Calcium 9.5 mg/dL (8.4-10.2); Carbon Dioxide 23 mmol/L (22-30); Chloride 106 mmol/L (98-107); Glucose 195 mg/dL (74-99); Magnesium 1.8 mg/dL (1.6-2.3); Non-African American GFR(CKD) 55 (>60 ml/min/1.73 sqM); Potassium 4.3 mmol/L (3.5-5.1); Sodium 137 mmol/L (137-145); Total Bilirubin 0.6 mg/dL (0.2-1.3)
[2024-03-08 15:07] LABS: Partial Thromboplastin Time 26.9 sec (22.0-30.0); Prothrombin Time 11.3 sec (10.0-12.5)
[2024-03-08 15:14] LABS: NT-Pro-B-Type Natriuretic Pept 363 pg/mL
[2024-03-08 17:13] VITALS: BP 106/59; PULSE 75; RESP 18; TEMP 97.6
== END 2024-03-08 17:13 | disposition home or self-care (01) ==
LOC: EC 13:18
DX: R55 Syncope and collapse (principal); I25.10 Atherosclerotic heart disease of native coronary artery without angina pectoris; Z86.73 Personal history of transient ischemic attack (TIA), and cerebral infarction without residual deficits; F17.200 Nicotine dependence, unspecified, uncomplicated; Z88.5 Allergy status to narcotic agent; Z88.8 Allergy status to other drugs, medicaments and biological substances
CPT/HCPCS: 36415; 80053; 83735; 83880; 84484; 85025; 85610; 85730; 93005; 99285

== ENCOUNTER → 2024-04-21 | Outpatient (CLI) | payer MEDICARE, BC ==
--- NOTE | 2024-04-21 14:32 | CT ---
EXAMINATION TYPE: CT sinus wo con DATE OF EXAM: 04/21/2024 1:56 PM COMPARISON: None. CLINICAL INDICATION: Male, 78 years old with history of J32.0 CHRONIC MAXILLARY SINUSITIS, Chronic si nusitis, nasal drainage TECHNIQUE: The paranasal sinuses are examined in the axial plane at 2 mm thick sections. Reconstruct ed images in the coronal plane were obtained. Contrast used: mL of , (none if empty) Oral contrast used: (none if empty) CT DLP: 522 mGycm, Automated exposure control for dose reduction was used. FINDINGS: There is dental amalgam scatter artifact Minimal mucosal thickening along the inferior lateral right maxillary sinus. The ethmoid air cells a re clear. The sphenoid sinuses are clear. The frontal sinuses are clear. Flores air cells appear be present bilaterally The septum is evaluated. There is septal deviation to the left. The ostiomeatal units are patent. IMPRESSION: 1. Left septal deviation. [facility], , 04/21/2024 2:30 PM
== END | disposition home or self-care (01) ==
LOC: RADCTMAIN 12:36
PROVIDERS: ATTEND Otolaryngology
DX: J32.0 Chronic maxillary sinusitis (principal); J34.2 Deviated nasal septum
CPT/HCPCS: 70486